=== PATIENT | female | born 1975 | race Caucasian/White ===

== ENCOUNTER → 2019-11-06 08:30 | Outpatient (CLI) | payer OTHER, SELFPAY ==
--- NOTE | ~2019-11-06 | CT_ITS ---
EXAMINATION: CT abdomen pelvis w con DATE: 11/06/2019 09:08 INDICATION: Lower abdominal pain TECHNIQUE: Computed tomography (CT) of the abdomen and pelvis was performed with 100 cc Omnipaque 350 intravenous contrast. Automated exposure control and iterative reconstruction technique were employe d. Exam dose: 1102.61 mGy-cm total exam DLP. COMPARISON: None. FINDINGS: There is a right lower lobe calcified pulmonary granuloma. There are calcified right hilar nodes. No infiltrate or consolidation is noted at the lung bases. Normal heart size. No pericardial o r pleural effusion. No hepatic, splenic, pancreatic, and adrenal or renal space-occupying mass lesion is detected. Normal caliber of the abdominal aorta with mild atherosclerotic calcification. No intraperitoneal or retrop eritoneal mass lesion or adenopathy or ascites is evident. Normal appendix. No bowel obstruction, bowel wall thickening, pneumatosis or intraperitoneal free air . There is a rounded 4.3 cm cystic mass involving the uterine cervical area. There are several left ova jomar cystic lesions, the largest approximately 2.4 cm. Pelvic ultrasound examination should be consid ered. The urinary bladder appears normal. Old burst fracture deformity of L1 is noted. There is severe degenerative disc disease at L3-4. IMPRESSION: 4.3 cm cystic mass involving the uterine cervical area; uterine cervical carcinoma must be considered Several left ovarian cystic lesions Consider pelvic ultrasound examination and gynecologic consultation Old burst fracture of L1 Severe degenerative disc disease at L3-4 Dr. Drake telephoned the report and pelvic ultrasound and gynecologic consult recommendations to the [facility] physician voicemail at [phone] on 11/06/19 at 0947 hours, with request for return phone call confirming receipt. Reviewed, dictated and finalized at [facility]. Reviewed, dictated and finalized at location B. IMPRESSION: 4.3 cm cystic mass involving the uterine cervical area; uterine ce rvical carcinoma must be considered Several left ovarian cystic lesions Consider pelvic ultrasound examination and gynecologic consultation Old burst fracture of L1 Severe degenerative disc disease at L3-4 Dr. Drake telephoned the report and pelvic ultrasound and gynecologic consult re commendations to the referring physician voicemail at [phone] on 11/06/19 a t 0947 hours, with request for return phone call confirming receipt.
== END ==
DX: R10.30 Lower abdominal pain, unspecified (principal); M51.36 Other intervertebral disc degeneration, lumbar region; R93.89 Abnormal findings on diagnostic imaging of other specified body structures
CPT/HCPCS: 74177; Q9967

== ENCOUNTER 2023-02-06 09:21 | Emergency (ER) | payer OTHER, SELFPAY ==
[2023-02-06 09:30] VITALS: BP 122/102; PULSE 58; RESP 20; TEMP 36.6; O2SAT 100
--- NOTE | 2023-02-06 09:33 | ED.SKABFB ---
HPI - Skin/Abscess/Foreign Bdy General Chief complaint: Skin/Abscess/Foreign Body Stated complaint: poison tennille Time Seen by Provider: 02/06/23 09:33 Source: patient, RN notes reviewed and old records reviewed Mode of arrival: ambulatory Limitations: no limitations History of Present Illness HPI narrative: 47 year old female presents to express care with complaints of itching and rash to lower extremities since being in the weeds on . Patient reports that she took a Medrol dose pack but it has not cleared up with medication and remains itchy. Patient states that she takes daily Zyrtec and has been using hydrocortisone cream to rash areas. Patient denies any difficulty with swallowing or any trouble breathing. MD complaint: rash Onset (ago): day(s) (10 days) Location: [facility] Treatments prior to arrival: OTC topical medication (hydrocortisone) and other (Medrol dose pack) Related Data Allergies Allergy/AdvReac Type Severity Reaction Status Date / Time No Known Allergies Allergy Verified 02/06/23 09:36 Review of Systems Review of Systems: CONSTITUTIONAL: Denies fever, chills, or sweats. CARDIOVASCULAR: Denies chest pain, palpitations, or edema. RESPIRATORY: Denies cough or dyspnea. SKIN: Reports rash to lower extremities especially right lower leg with red raised patches of rash which is itchy, area to left lower leg around ankle region. MUSCULOSKELETAL: Denies joint pain or myalgia. NEUROLOGIC: Denies headache, numbness, or weakness. All systems reviewed & are unremarkable except as noted in HPI and below PMFSH Past Medical History Medical History (Updated 02/06/23 @ 10:11 by Montserrat Velarde NP) Arthritis DDD (degenerative disc disease) Surgical History Surgical History (Updated 02/06/23 @ 10:11 by Montserrat Velarde NP) History of repair of anterior cruciate ligament of right knee Social History Social History (Updated 02/06/23 @ 10:10 by Montserrat Velarde NP) Smoking status: Never smoker Alcohol intake: current Alcohol use details: social Substance use type: does not use Living arrangements: with family Gender identity (if verbalized by the patient): Female Comments At time of signature, agree with nursing past medical, surgical, social and family history. There is no relevant family history pertinent to the presenting complaint Exam Narrative: GENERAL: Well-appearing, well-nourished, and in no acute distress. HEAD: Normocephalic, atraumatic. EYES: PERRLA, conjunctivae clear, and EOMI. ENT: Mucous membranes moist. Oropharynx without edema, erythema or lesions. NECK: Supple. No lymphadenopathy CHEST: Clear to auscultation. No respiratory distress.SAO2 100% on room air HEART: Regular rate and rhythm. SKIN: Warm, dry.? Patches of red raised rash to lower extremities especially right posterior lower leg with itching NEURO:? Alert and oriented x3. PSYCH: Normal mood and affect Course Course Emergency Course: Patient is aware of diagnosis, understands and agrees to treatment plan.? Anticipatory guidance given.? Patient agrees to follow-up as directed and is aware of reasons to seek care at the emergency department. Portions of this record may have been created with voice recognition software Level of Care: Express Care Visit Vital Signs Vital signs: Vital Signs Temperature 36.6 C 02/06/23 09:30 Pulse Rate 58 L 02/06/23 09:30 Respiratory Rate 20 02/06/23 09:30 Blood Pressure 122/102 H 02/06/23 09:30 Pulse Oximetry 100 02/06/23 09:30 Oxygen Delivery Room Air 02/06/23 09:30 Temperature 36.6 C 02/06/23 09:37 Pulse Rate 58 L 02/06/23 09:37 Respiratory Rate 20 02/06/23 09:37 Blood Pressure 130/92 H 02/06/23 09:46 Pulse Oximetry 100 02/06/23 09:37 Oxygen Delivery Room Air 02/06/23 09:37 Reviewed MDM - Skin/Abscess/Foreign Bdy MDM Narrative Medical decision making narrative: Does not appear at this t
[2023-02-06 09:37] VITALS: BP 122/102; PULSE 58; RESP 20; TEMP 36.6; O2SAT 100
[2023-02-06 09:46] VITALS: BP 130/92
== END 2023-02-06 09:56 | disposition home or self-care (01) ==
PROVIDERS: Emergency Provider Registered Nurse; PCP Family Medicine
DX: L23.7 Allergic contact dermatitis due to plants, except food (principal); M19.90 Unspecified osteoarthritis, unspecified site
CPT/HCPCS: 99213; G0463

== ENCOUNTER 2023-02-13 10:28 | Emergency (ER) | payer OTHER, SELFPAY ==
--- NOTE | ~2023-02-13 | XR_ITS ---
XR lumbar spine 2-3V DATE: 02/13/2023 10:59 INDICATION: Fall. Low back pain. History of fracture. TECHNIQUE: AP, lateral, coned lateral lumbosacral views COMPARISON: 04/21/2019 lumbar spine FINDINGS: Increased levoscoliosis of the lumbar spine since 04/21/2019, measuring 23 degrees compared t o 9 degrees on 04/21/2019. Chronic moderate apparent compression fracture deformity of L1, appearing relatively stable since 04/21. There is interval focal fracture of the anterosuperior aspect of the L2 vertebral body, new since 04/21. Additionally, there is onset of severe degenerative disc disease at L2-3, especially on the right, no t present on 04/21/2019. There is mild associated retrolisthesis at L2-3. Persistent severe degenerative disc disease at L3-4. No other fracture or bone destruction is detected. Included lower thoracic and lumbar pedicles are in tact. The sacroiliac joints are intact. IMPRESSION: Increased levoscoliosis from 9 degrees on 04/21/2019 to 23 degrees currently Chronic L1 compression fracture deformity New severe degenerative disc disease at L2-3 since 04/21/2019, with mild retrolisthesis Chronic severe degenerative disc disease at L3-4 New focal anterolateral L2 vertebral body fracture since 04/21/2019 Reviewed, dictated and finalized at location A. IMPRESSION: Increased levoscoliosis from 9 degrees on 04/21/2019 to 23 degrees cu rrently Chronic L1 compression fracture deformity New severe degenerative disc disease at L2-3 since 04/21/2019, with mild retrolis thesis Chronic severe degenerative disc disease at L3-4 New focal anterolateral L2 vertebral body fracture since 04/21/2019
[2023-02-13 10:42] VITALS: BP 126/84; PULSE 65; RESP 18; TEMP 36.7; O2SAT 98
--- NOTE | 2023-02-13 11:09 | ED.BACK ---
HPI - Back Pain/Injury General Chief Complaint: Back Pain/Injury Stated Complaint: Fall Injury/Back Pain Source: patient Mode of arrival: ambulatory Limitations: no limitations History of Present Illness HPI Narrative: 47-year-old female presented for complaint of mid/lower back pain after fall 02/08/23. States she tripped over a shoe and fell landing flat on her back. She has appt with habilitation training specialist in 5 days, who has been managing her chronic back pain (Dr King). Also scheduled with pcp in 3 days. Taking Celebrex daily, and taking Tramadol BID with improvement in pain. Denies pain radiating into the hips or legs, numbness, tingling, weakness of the lower extremities, or change in gait, saddle paresthesia or loss of bowel or bladder. Pain worse with sitting, rates 8/10 at worst. Patient has continued to go to work this week. States last spine injury was 2017 when she fell off of a horse, has not had spinal surgery; receives steroid injections occasionally. Related Data Home Medications Medication Instructions Recorded Confirmed celecoxib 200 mg capsule 200 mg PO DAILY 12/30/20 02/13/23 Allergies Allergy/AdvReac Type Severity Reaction Status Date / Time No Known Drug Allergies Allergy Unknown Unknown Verified 02/10/23 09:24 Review of Systems Review of Systems: CONSTITUTIONAL: Denies body aches, fever, chills EYES: Denies visual changes CARDIOVASCULAR: Denies chest pain, palpitations, or edema. RESPIRATORY: Denies cough or dyspnea. GASTROINTESTINAL: Denies abdominal pain, nausea, vomiting, or diarrhea. SKIN: Denies rash, itching, or wounds. MUSCULOSKELETAL: reports back pain NEUROLOGIC: Denies headache, numbness, tingling, or weakness. All systems reviewed & are unremarkable except as noted in HPI and below PMFSH Past Medical History Medical History ACL tear Allergies Arthritis Arthritis DDD (degenerative disc disease) Inflammatory arthritis Surgical History Surgical History H/O breast biopsy H/O breast surgery H/O colposcopy with cervical biopsy 10/24/2020, 11/09/2019- benign, 09/09/2016 ECC benign - BX tissue did not survive 12/29/2010 squamous atypia, 06/06/2009- benign History of repair of ACL History of repair of anterior cruciate ligament of right knee Family History Family History Other Family history of arthritis Hypertension Social History Social History Smoking status: Never smoker Alcohol intake: current Alcohol use details: social Substance use: never Substance use type: does not use Lack of Transportation: No Lack of Food: Never True Current Housing: I Have Housing Concerned About Future Housing: No Difficulty Paying Gas/Electric Bills: No Difficulty Paying for Meds: No Currently Unemployed: No Education: Master's Degree or Higher Difficulty w/ Childcare or Family Care: No Living arrangements: with family Occupation/Education: occupation 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 Please see nursing chart for further information. There is no relevant family history pertinent to the presenting complaint Exam Narrative: GENERAL: Well-appearing, and in no acute distress. HEAD: Normocephalic, atraumatic. EYES: conjunctivae clear NECK: Supple. full ROM CHEST: Speaks in full sentences. No respiratory distress. HEART: Regular rate and rhythm. Normal and equal peripheral pulses. MUSC: No Vertebral point tenderness. No paraspinal lumbar tenderness. BL
== END 2023-02-13 11:40 | disposition home or self-care (01) ==
PROVIDERS: Emergency Provider Nurse Practitioner Family; PCP Family Medicine
DX: S32.029A Unspecified fracture of second lumbar vertebra, initial encounter for closed fracture (principal); W18.09XA Striking against other object with subsequent fall, initial encounter; M13.80 Other specified arthritis, unspecified site
CPT/HCPCS: 72100; 99213; G0463

== ENCOUNTER 2024-11-02 09:20 | Outpatient (CLI) | payer OTHER, SELFPAY ==
--- OUTSIDE RECORDS SUMMARY | 2024-11-02 09:28 | XMS_ITS | Encounter Summary ---
Author Organization [facility] Address [address] [place] [address] Phone Care Team Providers Care [employer] Trader Name Role Phone Saleem Lebron MD Primary Care Provider [phone] Louise Palma APRN, DIRECTOR OF SUPPLY CHAIN Unavailable [phone] Encounter Details Date Type Department Care Team (Late st Contact Info) Description 11/02/2024 Results Follow-Up [facility] - Family Medicine [facility] [address] [place] [address] Saleem Lebron MD [address] [address] BASIC METABOLIC PANEL W/ CALCIUM TOTAL Social History Tobacco Use Types Packs/Day Years Used Date Smoking Tobacco: Never Smokeless Tobacco: Never Alcohol Use Standard Drinks/Week Comments No 0 (1 standard drink = 0.6 oz pur e alcohol) [facility] Utilities Answer Date Recorded In the past 12 months has [employer] electric, gas, oil, or water company threatened to shut off services in your home? Patient declined 06/05/2024 Social Connection and Isolation Panel Answer Date Recorded In a typical week, how many times do you talk on the phone with family, friends, or neighbors? Patient declined 06/05/2024 How often do you get togethe r with friends or relatives? Patient declined 06/05/2024 How often do you attend mormon or taoist serv ices? Patient declined 06/05/2024 Do you belong to any clubs o r organizations such as mormon groups, unions, fraternal or athletic groups, or school groups? Patient declined 06/05/2024 How often do you attend meet ings of the clubs or organizations you belong to? Patient declined 06/05/2024 Are you , , di vorced, , never , or living with a partner? Patient declined 06/05/2024 AUDIT-C Answer Date Recorded Q1: How often do you have a drink containing alc ohol? Patient declined 06/05/2024 Q2: How many drinks containi ng alcohol do you have on a typical day when you are drinking? Patient declined 06/05/2024 Q3: How often do you have si x or more drinks on one occasion? Patient declined 06/05/2024 PHQ-2 Answer Date Recorded Total Score - Questions 1-9 0 05/20 [facility] - Occupational Stress Questionnaire Answer Date Recorded Do you feel stress - tense, restless, nervous, or anxious, or unable to sleep at night because your mind is troubled all the time - these days? Patient declined 06/05/2024 Hunger Vital Sign Answer Date Recorded Within the past 12 months, y ou worried that your food would run out before you got the money to buy more. Patient declined Within the past 12 months, t he food you bought just didn't last and you didn't have money to get more. Patient declined PRAPARE - Transportation Answer Date Re corded In the past 12 months, has l ack of transportation kept you from medical appointments or from getting medications? No 05/20 In the past 12 months, has l ack of transportation kept you from meetings, work, or from getting things needed for daily living? No 06/05/2024 Housing Stability Vital Sign Answer Olu e Recorded In the last 12 months, was t here a time when you were not able to pay the mortgage or rent on time? No 07/18/2023 In the last 12 months, how many places have you lived? 1 07/18/2023 In the last 12 months, was t here a time when you did not have a steady place to sleep or slept in a fci (including now)? No 07/18/2023 Overall Financial Resource Strain (CARDIA) Answe r Date Recorded How hard is it for you to pa y for the very basics like food, housing, medical care, and heating? Not very hard 10/10/2024 Exercise Vital Sign Answer Date Recorde d On average, how many days pe r week do you engage in moderate to strenuous exercise (like a brisk walk)? 2 days 10/10/2024 On average, how many minutes do you engage in exercise at this level? 30 min 10/10/2024 Housing Stability Vital Sign Answer Olu e Recorded In the last 12 months, was t here a time when you were not able to pay the mortgage or rent on time? No 10/10/2024 In the past 12 months, how m any times have you moved where you were living? 0 10/10/2024 At any time in the past 12 m onths, were you homeless or living in a fci (including now)? No 10/10/2024 Education Answer Date Recorded What is the highest level of school you have completed or the highest degree you have received? 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 [address] [place] [address] Lavonne Ward Nancy, PAC [address] [place] [address] Discharge Disposition: Discharged to home or Selfcare 12/25/2024 3:00 PM CDT Office Visit [facility] - Cardiology - [place] [address] [place] [address] Ayde Cleaning APRN, DIRECTOR OF SUPPLY CHAIN [address] [place] [address] 02/06/2025 2:45 PM CDT Office Visit [facility] - Family Medicine - [place] [address] [place] [address] Saleem Lebron MD [address] [facility] [address] [place] [address] documented as of this encounter Visit Diagnoses Not on filedocumented in this encounter Additional Health Concerns Assessment Noted Time PHQ-9 Depression Total Score: 0 06/06/19 25 3:09 PM 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
--- OUTSIDE RECORDS SUMMARY | 2024-11-02 09:28 | XMS_ITS | Clinical Summary ---
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 Gender Identity Not on file Sexual Orientation Not on file Plan of Treatment Health Maintenance Due Date Last Done Comments HEPATITIS B VACCINES (1 of 3 - 19+ 3-dose series) 1993 HPV/Cotest (21-29) 09/15/1995 CERVICAL CANCER SCREENING 2004 HPV/Cotest (30-65) 2004 PAP SMEAR 2004 COLORECTAL SCREENING 09/15/2019 Colorectal Cancer Screening 09/15/2019 FIT-DNA Q 3 years 09/15/2019 FIT/FOBT Q 1 year 09/15/2019 Flex Sig/CT Colonography Q 5 years 09/15/2019 BREAST CANCER SCREENING 12/26/2023 12/26/19 23, 12/25/2022, 12/11/2021, Additional history exists ZOSTER VACCINE (1 of 2) 2024 INFLUENZA VACCINE (#1) 2024 DTAP/TDAP/TD VACCINES (2 - T d or Tdap) 05/21/2026 05/21/2016 [employer] [id number]
--- OUTSIDE RECORDS SUMMARY | 2024-11-02 09:28 | XMS_ITS | Clinical Summary ---
Author Organization [facility] Address [address] [place] [phone] Care Team Providers Care Clamshell Operator Name Role Phone Yosi Lebron MD Primary Care Provider Allergies No known active allergies Active Problems Problem Noted Date Diagnosed Date Possible , not yet confirmed 08/01/2014 Female infertility 07/11/2014 Encounters Date Type Department Care Team Description 10/08/2024 9:39 PM CDT - 10/09/2024 1:06 AM CDT Emergency [facility] Emergency Department [address] [place] [address] Bassam Gabriel MD Chest pain, unspecified type (Primary Dx); Dizziness; Hyponatremia; Hypokalemia Discharge Disposition: Discharge to home or self care from Last 3 Months Social History Tobacco Use Types Packs/Day Years Used Date Smoking Tobacco: Never Personal Safety Answer Date Recorded Have you ever been in or are you currently in a harmful physical or emotional relationship or is someone making you feel afraid or unsafe? Denies 10/08/2024 Comments Unknown Sex and Gender Information Value Date Recorded Sex Assigned at Not on file Legal Sex Female 7:33 PM CONTACT LENS MOLDER Gender Identity Not on file Sexual Orientation Not on file Obstetrics History Last Filed Vital Signs Vital Sign Reading Time Taken Comments Blood Pressure 130/91 10/08/2024 11:15 PM CDT Pulse 65 10/08/2024 11:15 PM CDT Temperature 36.7 C (98 F) 10/08/2024 9:42 PM CDT Respiratory Rate 13 10/08/2024 11:1 5 PM CDT Oxygen Saturation 96% 10/08/2024 11: 15 PM CDT Inhaled Oxygen Concentration - - Weight 83.9 kg (184 lb 15.5 oz) 10/08/2024 9:42 PM CDT Height 170.2 cm (5' 7.01) 10/08/2024 9:42 PM CD T Body Mass Index 28.96 10/08/2024 9:42 PM CDT Plan of Treatment Health Maintenance Due Date Last Done Comments Cervical Cancer Screening 1974 Colon Cancer Screening-Colonoscopy 1974 Depression Screening 1974 Hepatitis B Screening 1992 Regular Well Visit/Exam 18-64 1992 Zoster Vaccine (1 of 2) 2024 Influenza Vaccine (#1) 2024 Breast Cancer Screening-Mammogram 05/01/2025 05/01/2024, 05/01/2024, 12/25/2022, Additional history exists DTaP/Tdap/Td Vaccine (2 - Td or Tdap) 05/21/2026 05/21/2016 Hepatitis C Screening Completed 05/29/2014 Pneumococcal vaccine <65 Aged Out No longer eligible based on patient's age to complete this topic Procedures Procedure Name Priority Date/Time Associated Diagnosis Comments MAGNESIUM Add-On 10/08/2024 10:53 PM CDT XR CHEST 1 VIEW ED 10/08/2024 10:37 PM CDT EGFR STAT 10/08/2024 9:43 PM CDT DIFFERENTIAL AUTO STAT 10/08/2024 9:4 3 PM CDT TROPONIN T HIGH-SENSITIVITY SERIES (BASELINE, 2HR, 4HR, 6HR) STAT 10/08/2024 9:43 PM CDT COMPREHENSIVE METABOLIC PANEL STAT 10/08/2024 9:43 PM CDT CBC WITH AUTO DIFFERENTIAL STAT 10/08/2024 9:43 PM CDT ECG 12-LEAD STAT 10/08/2024 9:38 PM CDT SERUM HEPATITIS C AB Routine 05/29/2014 5:00 AM CONTACT LENS MOLDER from Last 3 Months or Most Recently Relevant to Health Maintenance Results * Magnesium (10/08/2024 10:53 PM CDT) Magnesium 1.9 1.4 - 2.5 mg/dL Blood 10/08/2024 10:5 3 PM CDT 10/09/2024 12:21 AM CDT us Bassam Gabriel MD LAB BLOOD ORDERABLE S Final Result [facility] 1 [facility] Department of Laboratories [place], [place] [id number] * XR Chest 1 View (10/08/2024 10:37 PM CDT) Anatomical Region Laterality Modality Body, Chest N/A Computed Radiogr aphy 10/08/2024 11:0 8 PM CDT Narrative 10/08/2024 11:08 PM CDT EXAM DESCRIPTION: XR CHEST 1 VIEW REASON FOR STUDY: chest pain, c/f pna Patient arrives to the ED with complaints of chest pain and headache. Patient states her headache began yesterday and her blood pressure has been all over the place. Patient states she has a history of HTN and is on 2 medications. Patient also complaining of nausea at this time. States it feels like an elephant is sitting on her chest. TECHNIQUE: Single radiographic view(s) of the chest. COMPARISON: None FINDINGS: LUNGS: No focal opacity, pleural effusion, or pneumothorax. HEART/MEDIASTINUM: Cardiac silhouette normal in size. Mediastinal and hilar contours appear normal. LINES/TUBES: None. BONES: No acute osseous abnormality. IMPRESSION: No acute cardiopulmonary abnormality. THIS IS AN ELECTRONICALLY VERIFIED FINAL REPORT 10/08/2024 11:08 PM - Electronically signed by Terry Granado M.D. KH: G[place]IA Report ID: [id number] Reading Location: [id number] Procedure Note Terry Granado MD - 10/08/2024 EXAM DESCRIPTION: XR CHEST 1 VIEW REASON FOR STUDY: chest pain, c/f pna Patient arrives to the ED with complaints of chest pain and headache.Patient states her headache began yesterday and her blood pressure has been allover the place. Patient states she has a history of HTN and is on 2medications. Patient also complaining of nausea at this time. States it feels like an elephant is sitting on her chest. TECHNIQUE: Single radiographic view(s) of the chest. COMPARISON: None FINDINGS: LUNGS: No focal opacity, pleural effusion, or pneumothorax. HEART/MEDIASTINUM: Cardiac silhouette normal in size. Mediastinal andhilar contours appear normal. LINES/TUBES: None. BONES: No acute osseous abnormality. IMPRESSION: No acute cardiopulmonary abnormality. THIS IS AN ELECTRONICALLY VERIFIED FINAL REPORT 10/08/2024 11:08 PM - Electronically signed by Terry Granado M.D. KH: GREGORIA Report ID: [id number] Reading Location: [place] [address] us Bassam Gabriel MD IMG XR PROCEDURES F inal Result * Troponin T high-sensitivity series (baseline, 2hr, 4hr, 6hr) (10/08/2024 9:43 PM CDT) Trop T hs 8 <=14 ng/L Comment: Interpretive Data For further hscTnT resources including the diagnostic algorithm and an aid in interpretation, copy and paste this link: https://nrl.testcatalog.org/show/hsTrop Current Interpretive Data last revised 2020. Blood 10/08/2024 9:43 PM CDT 10/08/2024 9:46 PM CDT us Bassam Gabriel MD LAB BLOOD ORDERABLE S Final Result [facility] 1 [facility] Department [place] [address] * eGFR (10/08/2024 9:43 PM CDT) [facility] eGFR >90 >=60 mL/min/1. 73 m2 Comment: Interpretive Data Reference Interval Normal >/= 90 mL/min/1.73m2 Mildly decreased* 60 - 89 mL/min/1.73m2 Mildly to moderately decreased 45 - 59 mL/min/1.73m2 Moderately to severely decreased 30 - 44 mL/min/1.73m2 Severely decreased 15 - 29 mL/min/1.73m2 Kidney Failure < 15 mL/min/1.73m2 *Relative to young adult level Estimated glomerular filtration rate is determined by the 2020 CKD-EPI equation recommended by the National Kidney Foundation (A Unifying Approach to GFR Estimation: Recommendations of the NKF-ASK Task Force on Reassessing the Inclusion of Race in Diagnosing Kidney Disease, JASN 2020). The CKD-EPI equation should not be used for patients with unstable renal function and has not been validated in children and those over 70. Current interpretive data was last reviewed 2021. Blood 10/08/2024 9:43 PM CDT 10/08/2024 9:46 PM CDT us Bassam Gabriel MD LAB BLOOD ORDERABLE S Final Result [facility] ([place]) 1 [facility] [place] [address] * (ABNORMAL) Differential, auto (10/08/2024 9:43 PM CDT) Pathologist [facility] Neutrophil abs 8.14(H) 1.50 - 6.50 K/cumm Imm gran abs 0.06 0.00 - 0.10 K/cumm [facility] Lymphocyte abs 2.92 0.80 - 3.30 K/cumm [facility]) Monocyte abs 1.07(H) 0.20 - 0.80 K/cumm [facility]) Eosinophil abs 0.19 0.00 - 0.50 K/cumm [facility]) Basophil abs 0.05 0.00 - 0.10 K/cumm [facility]) Neutrophil pct 65.5 % [facility] ([place]) Comment: Interpretive Data Percent cell count reference ranges are not reported, since discordance with absolute values may lead to misinterpretation of CBC data. Current Interpretive Data was last revised on 2017. Imm gran pct 0.5 % [facility]) Comment: Interpretive Data Percent cell count reference ranges are not reported, since discordance with absolute values may lead to misinterpretation of CBC data. Current Interpretive Data was last revised on 2017. Lymphocyte pct 23.5 % [facility] Comment: Interpretive Data Percent cell count reference ranges are not reported, since discordance with absolute values may lead to misinterpretation of CBC data. Current Interpretive Data was last revised on 2017. Monocyte pct 8.6 % [facility]) Comment: Interpretive Data Percent cell count reference ranges are not reported, since discordance with absolute values may lead to misinterpretation of CBC data. Current Interpretive Data was last revised on 2017. Eosinophil pct 1.5 % [facility] Comment: Interpretive Data Percent cell count reference ranges are not reported, since discordance with absolute values may lead to misinterpretation of CBC data. Current Interpretive Data was last revised on 2017. Basophil pct 0.4 % [facility] Comment: Interpretive Data Percent cell count reference ranges are not reported, since discordance with absolute values may lead to misinterpretation of CBC data. Current Interpretive Data was last revised on 2017. Blood 10/08/2024 9:43 PM CDT 10/08/2024 9:46 PM CDT us Bassam Gabriel MD LAB BLOOD ORDERABLE S Final Result [facility] 1 [facility] Department [place] [address] * (ABNORMAL) CBC with auto differential (10/08/2024 9:43 PM CDT) WBC 12.43(H) 3.80 - 9.90 K/cumm Hgb 12.9 11.9 - 15.5 g/dL [facility]) Hct 36.8 35.6 - 45.5 % [facility]) Plt 349 150 - 400 K/cumm [facility]) MPV 11.5 9.1 - 12.3 fL [facility] RBC 4.19 3.90 - 5.20 M/cumm [facility]) MCV 87.8 81.3 - 96.4 fL [facility]) MCH 30.8 27.1 - 33.3 pg [facility]) MCHC 35.1 32.3 - 35.7 g/dL [facility]) RDW CV 13.3 11.1 - 14.9 % [facility] RDW SD 43.2 35.7 - 48.1 fL [facility] NRBC abs 0.00 0.00 - 0.01 K/cumm [facility]) Blood 10/08/2024 9:43 PM CDT 10/08/2024 9:46 PM CDT us Bassam Gabriel MD LAB BLOOD ORDERABLE S Final Result [facility]) 1 [facility] Department [place] [address] * (ABNORMAL) Comprehensive metabolic panel (10/08/2024 9:43 PM CDT) Sodium 125(L) 135 - 145 mmol/L Potassium, pl 3.1(L) 3.3 - 4.9 mmol/L [facility] Chloride 83(L) 97 - 110 mmol/L [facility] CO2 26 22 - 32 mmol/L [facility]) Anion gap 17(H) 2 - 15 mmol/L [facility]) BUN 8 6 - 25 mg/dL [facility]) Creatinine 0.63 0.60 - 1.10 mg/dL [facility] Comment:Icteric sample, test results may be affected. Glucose 105 70 - 199 mg/dL [facility] Comment: Interpretive Data Fasting glucose >/= 126 mg/dl is diagnostic for diabetes. Fasting is defined as no caloric intake for at least 8 hours. Fasting glucose between 100 mg/dl to 125 mg/dl is diagnostic of prediabetes. In a patient with classic symptoms of hyperglycemia or hyperglycemic crisis, a random glucose >/= 200 mg/dl is diagnostic for diabetes. In the absence of unequivocal hyperglycemia, results should be confirmed by repeat testing. The classification and Diagnosis of Diabetes Diabetes Care 202; 46: S19-S40. Current interpretive data was last revised 2022. Calcium 9.6 8.5 - 10.3 mg/dL [facility] Bilirubin, total 1.3(H) 0.1 - 1.2 mg/dL [facility]) Protein, pl 7.6 6.5 - 8.5 g/dL [facility]) Albumin 4.6 3.5 - 5.0 g/dL [facility]) Alk phos 59 40 - 130 Units/L [facility]) ALT 14 7 - 45 Units/L [facility]) AST 19 10 - 45 Units/L [facility]) Blood 10/08/2024 9:43 PM CDT 10/08/2024 9:46 PM CDT us Bassam Gabriel MD LAB BLOOD ORDERABLE S Final Result [facility] 1 [facility] Department [place] [address] * ECG 12 lead (10/08/2024 9:38 PM CDT) 10/08/2024 9:38 PM CDT Narrative [facility] - 10/09/2024 7:29 AM CDT Vent Rate: 67 bpm RR Interval: 885 msec NV Interval: 171 msec QRS Duration: 102 msec QT Interval: 385 msec QTC Interval: 401 msec P-R-T [place]: 12 - 15 - 6 degrees IMPRESSION: Baseline artifact SINUS RHYTHM NORMAL ECG Electronically Signed By: Josse Jeff MD us Bassam Gabriel MD ECG ORDERABLES Fin al Result [facility] * Serum Hepatitis C ab (05/29/2014 5:00 AM CONTACT LENS MOLDER) HCV ab Negative NEG HISTORICAL RESULTS Serum 05/29/2014 5:00 AM CONTACT LENS MOLDER Narrative HISTORICAL RESULTS - 05/30/2014 4:23 AM CONTACT LENS MOLDER {Testing performed by: [place] [address]} Interpretive Data If confirmation is required, call Laboratory Customer Service to request sample to be sent to [facility] for Hepatitis C Virus (HCV) RNA Detection and Quantitation by Real-Time Reverse Product Operations Associate-PCR (RT-PCR). Current interpretive data was last revised on 2011 us Dacia Doyle MD LAB BLOOD ORDERABLES Final R esult HISTORICAL RESULTS from Last 3 Months or Most Recently Relevant to Health Maintenance Insurance [facility] H[facility]/PPO Address: [facility] [address] [place] [address] Care Teams Clamshell Operator Relationship Specialty Start Date End Date Yosi Lebron MD [address] [place] [address] PCP - General Pulmonary Disease 10/08/24
--- OUTSIDE RECORDS SUMMARY | 2024-11-02 09:28 | XMS_ITS | Referral Summary ---
Author Organization [facility] Address [address] [place] [address] Care Team Providers Care Double Bass Player Name Role Phone Yosi Lebron MD Primary Care Provider [phone] Encounters Date Type Department Care Team Description 10/08/2024 9:39 PM CDT - 10/09/2024 1:06 AM CDT Emergency [facility] Emergency Department [address] [place] [id number] Bassam Gabriel MD Chest pain, unspecified type (Primary Dx); Dizziness; Hyponatremia; Hypokalemia Discharge Disposition: Discharge to home or self care from Last 3 Months Allergies No known active allergies Active Problems Problem Noted Date Diagnosed Date Possible , not yet confirmed 08/01/2014 Female infertility 07/11/2014 Social History Tobacco Use Types Packs/Day Years [...] on file Legal Sex Female 7:33 PM PREDATORY GAME HUNTER Gender Identity Not on file Sexual Orientation Not on file Last Filed Vital Signs Vital Sign Reading [...] 10/08/2024 9:42 PM CDT Plan of Treatment Not on file Procedures Procedure Name Priority Date/Time Associated Diagnosis [...] HEPATITIS C AB Routine 05/29/2014 5:00 AM PREDATORY GAME HUNTER from Last 3 Months or Most Recently Relevant to Health Maintenance Results * Magnesium (10/08/2024 10:53 PM CDT) Magnesium 1.9 1.4 - 2.5 mg/dL Blood 10/08/2024 10:5 3 PM CDT 10/09/2024 12:21 AM CDT us Bassam Gabriel MD LAB BLOOD ORDERABLE S Final Result [facility] ([place]) 1 [facility] [place] [address] * XR Chest 1 View (10/08/2024 10:37 [...] Electronically signed by Terry Granado M.D. KH: [place] Report ID: [id number] Reading Location: [place] [address] Procedure Note Terry Granado MD - 10/08/2024 [...] Terry Granado M.D. KH: [place] Report ID: [id number] Reading Location: [place] [address] us Bassam Gabriel MD IMG XR PROCEDURES [...] MD LAB BLOOD ORDERABLE S Final Result [facility] [place]) 3 [facility] Department [place] [address] * eGFR (10/08/2024 9:43 PM CDT) eGFR >90 >=60 mL/min/1. 73 m2 Comment: [...] BLOOD ORDERABLE S Final Result [facility] ([place]) 1 [facility] Department [place] [address] * (ABNORMAL) Differential, auto (10/08/2024 9:43 PM CDT) Neutrophil abs 8.14(H) 1.50 - 6.50 K/cumm [...] S Final Result [facility] ([place]) 1 [facility] Department [place] [address] * (ABNORMAL) CBC with auto differential (10/08/2024 [...] ([place]) MCHC 35.1 32.3 - 35.7 g/dL [facility] ([place]) RDW CV 13.3 11.1 - 14.9 % [facility]) RDW SD 43.2 35.7 - 48.1 fL [facility] ([place]) NRBC abs 0.00 0.00 - 0.01 K/cumm [facility] ([place]) Blood 10/08/2024 9:43 PM CDT 10/08/2024 9:46 PM CDT us Bassam Gabriel MD LAB BLOOD ORDERABLE S Final Result [facility] ([place]) 1 [facility] Department [place] [address] * (ABNORMAL) Comprehensive metabolic panel (10/08/2024 9:43 PM CDT) Sodium 125(L) 135 - 145 mmol/L Potassium, pl 3.1(L) 3.3 - 4.9 mmol/L [facility] ([place]) Chloride 83(L) 97 - 110 mmol/L [facility] ([place]) CO2 26 22 - 32 mmol/L [facility]) Anion gap 17(H) 2 - 15 mmol/L [facility]) BUN 8 6 - 25 mg/dL [facility] ([place]) Creatinine 0.63 0.60 - 1.10 mg/dL [facility] ([place]) Comment:Icteric sample, test results may be affected. Glucose 105 70 - 199 mg/dL [facility] ([place]) Comment: Interpretive Data Fasting glucose >/= [...] classification and Diagnosis of Diabetes Diabetes Care 2021; 46: S19-S40. Current interpretive data was last [...] MD LAB BLOOD ORDERABLE S Final Result Performing Organization Address [facility] de Phone Number [facility] ([place] 1 [facility] [place] [address] * ECG 12 lead (10/08/2024 9:38 PM CDT) 10/08/2024 9:38 PM CDT Narrative [facility] - 10/09/2024 7:29 AM CDT Vent Rate: 67 bpm RR Interval: 885 msec [place] Interval: 171 msec QRS Duration: 102 msec QT Interval: 385 msec QTC Interval: 401 msec P-R-T [place]: 12 - 15 - 6 degrees IMPRESSION: Baseline artifact SINUS RHYTHM NORMAL ECG Electronically Signed By: Josse Jeff MD us Bassam Gabriel MD ECG ORDERABLES Fin al Result Performing Organization Address [facility] Co de Phone Number [employer] [facility] * Serum Hepatitis C ab (05/29/2014 5:00 AM PREDATORY GAME HUNTER) HCV ab Negative NEG HISTORICAL RESULTS Serum 05/29/2014 5:00 AM PREDATORY GAME HUNTER Narrative HISTORICAL RESULTS - 05/30/2014 4:23 AM PREDATORY GAME HUNTER {Testing performed by: [facility] [place] [address]} Interpretive Data If confirmation is required, call Laboratory Customer Service to request sample to be sent to [facility] for Hepatitis C Virus (HCV) RNA Detection and Quantitation by Real-Time Reverse Slate Picker-PCR (RT-PCR). Current interpretive data was last revised on 2011 us Dacia Doyle MD LAB BLOOD ORDERABLES Final R esult HISTORICAL RESULTS from Last 3 Months or Most Recently Relevant to Health Maintenance Insurance [facility] CHOICE PLUS Care Teams Double Bass Player Relationship Specialty Start Date End Date Yosi Lebron MD [address] [place] [address] PCP - General Pulmonary Disease 10/08/24
--- OUTSIDE RECORDS SUMMARY | 2024-11-02 09:28 | XMS_ITS | Encounter Summary ---
Author Organization [facility] Address [address] [place] [address] Phone Care Team Providers Care Rvda Master Certified Rv Technician Name Role Phone Shu Branch MD Primary Care Provider [phone] Saleem Lebron MD Primary Care Provider Louise Palma APRN, [facility] Unavailable [phone] Reason for Visit * Reason Comments Medication Refill Encounter Details Date Type Department Care Team (Late st Contact Info) Description 05/26/2023 Refill [facility] - [facility] - [place] [address] [place] [phone] Saleem Lebron MD [address] [address] Medication Refill Social History Tobacco Use Types Packs/Day Years Used Date Smoking Tobacco: Never Smokeless Tobacco: Never Alcohol Use Standard Drinks/Week Comments No 0 (1 standard drink = 0.6 oz pur e alcohol) PHQ-2 Answer Date Recorded Total Score - Questions 1-9 0 09/18 Education Answer Date Recorded What is the highest level of school you have completed or the highest degree you have received? 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, [employer]) 12/22/2022 Sexually Active Control Partners Comments Yes Comments No Sex and Gender Information Value Date Recorded Sex Assigned at Not on file Legal Sex Female 9:02 PM CDT Gender Identity Not on file Sexual Orientation Not on file documented as of this encounter Miscellaneous Notes * Telephone Encounter - Johana Garcia RN - 05/27/2023 9:01 AM CST Ordered 2 days ago AGE TRUCK DISPATCHER documented in this encounter Plan of Treatment Upcoming Encounters Date Type Department Care Team (Late st Contact Info) Description 11/07/2024 9:00 AM CDT [facility] [address] [place] [address] Lavonne Ward, PAC [address] [place] [address] Discharge Disposition: Discharged to home or Selfcare 12/25/2024 3:00 PM CDT Office Visit [facility] - Cardiology - [place] [address] [place] [phone] Ayde Cleaning APRN, CRIMPER OPERATOR [address] [place] [phone] 02/06/2025 2:45 PM CDT Office Visit [facility] - [facility] - [place] [address] [place] [phone] Saleem Lebron MD [address] [address] documented as of this encounter Visit Diagnoses Diagnosis Primary hypertension Unspecified essential hypertension Elevated ferritin- Primary Other abnormal blood chemistry Iron deficiency anemia, unspecified iron deficiency anemia type documented in this encounter Additional Health Concerns Infection Onset Date Last Indicated Resolved Time Respiratory Rule-Out 07/19/2023 07/19/2023 024 11:52 AM CDT Assessment Noted Time PHQ-9 Depression Total Score: 0 10/23/19 20 12:39 PM CDT documented as of this encounter Care Teams Rvda Master Certified Rv Technician Relationship Specialty Start Date End Date Shu Branch MD [address] [place] [address] PCP - General Family Medicine 05/20/16 06/08/23 Saleem Lebron MD [address] [facility] [address] [place] [address] PCP - General Family Medicine 06/09/23 Louise Palma APRN, CRIMPER OPERATOR [address] [facility] [address] [place] [address] Nurse Practitioner Cardiology 06/17/23 documented as of this encounter
--- OUTSIDE RECORDS SUMMARY | 2024-11-02 09:28 | XMS_ITS | Encounter Summary ---
Author Organization [facility] Address [address] [place] [address] Phone Care Team Providers Care Utilization Management Rn Name Role Phone Saleem Lebron MD Primary Care Provider [phone] [phone] Louise Palma COMPLIANCE OFFICER, CHARRER Unavailable +1- [phone] Encounter Details Date Type Department Care Team (Latest Contact Info) Description 10/31/2024 Results Follow-Up [facility] - Cancer Center Oncology Services [address] [place] [id number] Lavonne Ward Nancy, PAC [address] [place], [place] [id number] FERRITIN, IRON,TRANSFERN,CALC.T IBC,%SAT, CBC WITH AUTO DIFFERENTIAL Social History Tobacco Use Types Packs/Day Years Used Date Smoking Tobacco: Never Smokeless Tobacco: Never Alcohol Use Standard Drinks/Week Comments No 0 (1 standard drink = 0.6 oz pur e alcohol) [facility] Utilities Answer Date Recorded In the past 12 months has e electric, gas, oil, or water company threatened [...] declined 06/05/2024 How often do you attend roman catholic or yarsani serv ices? Patient declined 06/05/2024 Do you belong to any clubs o r organizations such as roman catholic groups, unions, fraternal or athletic groups, or [...] Total Score - Questions 1-9 0 05/20 [facility] - Occupational Stress Questionnaire Answer Date Recorded [...] place to sleep or slept in a intermediate (including now)? No 07/18/2023 Overall Financial Resource [...] were you homeless or living in a intermediate (including now)? No 10/10/2024 Education Answer Date Recorded What is the highest level of school you have completed or the highest degree you have received? 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 - Cardiology - [place] [address] [place] [address] Ayde Cleaning APRN, CHARRER [address] [place] [address] 02/06/2025 2:45 PM CDT Office Visit [facility] - Family Medicine - [place] [address] [place] [address] Saleem Lebron MD #[address] [facility] [address] [place] [address] documented as of this encounter Visit Diagnoses Not on filedocumented in this encounter Additional Health Concerns Assessment Noted Time PHQ-9 Depression Total Score: 0 06/06/19 25 3:09 PM SIGNAL AND COMMUNICATIONS MAINTAINER documented as of this encounter Care Teams Utilization Management Rn Relationship Specialty Start Date End Date Saleem Lebron MD [address] [facility] [address] [place] [address] PCP - General Family Medicine 06/09/23 Louise Palma APRN, CHARRER [address] [facility] [address] [place] [address] Nurse Practitioner Cardiology 06/17/23 documented as of this encounter
--- OUTSIDE RECORDS SUMMARY | 2024-11-02 09:28 | XMS_ITS | Encounter Summary ---
Author Organization [facility] Address [address] [place] [address] Phone Care Team Providers Care Drum Loader And Unloader Name Role Phone Saleem Lebron MD Primary Care Provider [phone] [phone] Louise Palma APRN, PROTECTIVE SERVICES CASE WORKER Unavailable [phone]- [phone] Encounter Details Date Type Department Care Team (Late st Contact Info) Description 10/22/2024 Results Follow-Up [facility] Medical Group - Family Medicine [facility] [address] [place] [address] Saleem Lebron MD #[address] [address] BASIC METABOLIC PANEL W/ CALCIUM TOTAL, BASIC METABOLIC PANEL W/ CALCIUM TOTAL, THYROID STIMULATING HORMONE (TSH), LIPID PANEL Social History Tobacco Use Types Packs/Day Years Used Date Smoking Tobacco: Never Smokeless Tobacco: Never Alcohol Use Standard Drinks/Week Comments No 0 (1 standard drink = 0.6 oz pur e alcohol) [facility] Utilities Answer Date Recorded In the past 12 months has [employer], gas, oil, or water company threatened to [...] declined 06/05/2024 How often do you attend protestant or jain serv ices? Patient declined 06/05/2024 Do you belong to any clubs o r organizations such as protestant groups, unions, fraternal or athletic groups, or [...] Total Score - Questions 1-9 0 05/20 [facility] - Occupational [...] place to sleep or slept in a group home (including now)? No 07/18/2023 Overall Financial Resource [...] any time in the past 12 m ont, were you homeless or living in a group home (including now)? No 10/10/2024 Education Answer Date Recorded What is the highest level of school you have completed or the highest degree you have received? 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, BILLING ASSOCIATE, SILVIA) 12/22/2022 Sexually Active Control Partners Comments [...] Description 11/07/2024 9:00 AM CDT Office Visit [facility] Oncology Services [address] [place] [address] Lavonne Ward Nancy, PAC [address] [place] [address] Discharge Disposition: Discharged to home or Selfcare 12/25/2024 3:00 PM CDT Office Visit [facility] - Cardiology - [place] [address] [facility] [phone] Ayde Cleaning, FERMENTING CELLAR DROPPER, PROTECTIVE SERVICES CASE WORKER [address] [facility] [place] [address] 02/06/2025 2:45 PM CDT Office Visit [facility] - Family Medicine - [place] [address] [facility] [place] [address] Saleem Lebron MD #[address] [address] documented as of this encounter Results * BASIC METABOLIC PANEL W/ CALCIUM TOTAL (10/24/2024 10:20 AM CDT) Pathologist [facility] SODIUM 138 136 - 145 mmol/L 10/24/2024 11:43 AM CDT [facility] POTASSIUM 3.7 3.5 - 5.1 mmol/L 10/24/2024 11:43 AM CDT [facility] CHLORIDE 102 98 - 107 mmol/L 10/24/2024 11:43 AM CDT [facility] CO2, VENOUS 29 22 - 30 mmol/L 10/24/2024 11:43 AM CDT [facility] ANION GAP 10.7 <18.0 mmol/L 10/24/2024 11:43 AM CDT [facility] GLUCOSE 96 70 - 99 mg/dL 10/24/2024 11:43 AM CDT [facility] BUN 10 10 - 20 mg/dL 10/24/2024 11:43 AM CDT [facility] CREATININE, BLOOD 0.69 0.60 - 1.00 mg/dL 10/24/2024 11:43 AM CDT [facility] BUN/CREATIN[facility] RATIO 14 12 - 20 ratio 10/24/2024 11:43 AM CDT [facility] CALCIUM 9.2 8.7 - 10.5 mg/dL 10/24/2024 11:43 AM CDT [facility] IS THE PATIENT REQUIRED TO BE FASTING? No 10/24/2024 11:43 AM CDT [facility] GFR, ESTIMATED >60 >=60 10/24/2024 11:43 AM CDT [facility] Comment: Creatinine Clearance is the preferred criteria for selecting drug dose adjustments in renally impaired patients. The GFR is provided as additional pertinent clinical information. GFR is reported in mL/min/1.73 sq m. Calculation based on the Chronic Kidney Disease Epidemiology Collaboration (CKD- EPI) equation refit without adjustment for race. GFR, EST. >60 >=60 025 11:43 AM CDT [facility] GFR, EST. NONAFRICAN >60 >=60 10/24/2024 11:43 AM CDT [facility] Blood Venipuncture / Unknown 10/24/2024 10:20 AM CDT 10/24/2024 10:56 AM CDT Saleem Lebron MD CHEMISTRY ORDERABLES Melissa l Result [facility] [address] [place] [address] documented in this encounter Visit Diagnoses Diagnosis Hypokalemia- Primary Hypopotassemia Elevated ferritin- Primary Other abnormal blood chemistry Iron deficiency anemia, unspecified iron deficiency anemia type documented in this encounter Additional Health Concerns Assessment Noted Time PHQ-9 Depression Total Score: 0 06/06/19 25 3:09 PM TOP LIFT TRIMMER documented as of this encounter Care Teams Drum Loader And Unloader Relationship Specialty Start Date End Date Saleem Lebron MD #[address] [address] PCP - General Family Medicine 06/09/23 Louise Palma, FERMENTING CELLAR DROPPER, PROTECTIVE SERVICES CASE WORKER [address] [facility], [address] [place] [address] Nurse Practitioner Cardiology 06/17/23 documented as of this encounter
--- OUTSIDE RECORDS SUMMARY | 2024-11-02 09:28 | XMS_ITS | Encounter Summary ---
Author Organization [facility] Address [address] [place] [address] Phone Care Team Providers Care Bench Molder Name Role Phone Saleem Lebron MD Primary Care Provider [phone] [phone] Louise Palma APRN, HYDRAULICS ENGINEER Unavailable [phone]- [phone] Encounter Details Date Type Department Care Team (Late st Contact Info) Description 10/16/2024 Results Follow-Up [facility] Medical Group - Family Medicine [facility] [address] [place] [address] Saleem Lebron MD #[address] [address] CBC WITH AUTO DIFFERENTIAL Social History Tobacco Use Types Packs/Day Years Used Date Smoking Tobacco: Never Smokeless Tobacco: Never Alcohol Use Standard Drinks/Week Comments No 0 (1 standard drink = 0.6 oz pur e alcohol) [facility] Utilities Answer Date Recorded In the past 12 months has [employer] electric, gas, oil, or water company threatened [...] declined 06/05/2024 How often do you attend methodist or protestant serv ices? Patient declined 06/05/2024 Do you belong to any clubs o r organizations such as methodist groups, unions, fraternal or athletic groups, or [...] Total Score - Questions 1-9 0 05/20 [facility] - Occupational Stress [...] place to sleep or slept in a assisted (including now)? No 07/18/2023 Overall Financial Resource [...] were you homeless or living in a assisted (including now)? No 10/10/2024 Education Answer Date Recorded What is the highest level of school you have completed or the highest degree you have received? 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, HEALTH CARE LAW SPECIALIST, SILVIA) 12/22/2022 Sexually Active Control Partners Comments [...] CDT [facility] [address] [place] [address] Lavonne Ward Nancy, PAC [address] [place] [address] Discharge Disposition: Discharged to home or Selfcare 12/25/2024 3:00 PM CDT Office Visit [facility] Medical [facility] - Cardiology - [place] [address] [place] [place] [address] Ayde Cleaning APRN, HYDRAULICS ENGINEER [address] [place] [address] 02/06/2025 2:45 PM CDT Office Visit [facility] Medical Group - Family Medicine - [place] [address] [place] [address] Saleem Lebron MD #[address] [facility] [address] [place] [address] documented as of this encounter Visit Diagnoses Not on filedocumented in this encounter Additional Health Concerns Assessment Noted Time PHQ-9 Depression Total Score: 0 06/06/19 25 3:09 PM ATTENDANCE SECRETARY documented as of this encounter Care Teams Bench Molder Relationship Specialty Start Date End Date Saleem Lebron MD #2 [facility] [address] [place] [address] PCP - General Family Medicine 06/09/23 Louise Palma APRN, HYDRAULICS ENGINEER [address] [facility] [address] [place] [address] Nurse Practitioner Cardiology 06/17/23 documented as of this encounter
--- OUTSIDE RECORDS SUMMARY | 2024-11-02 09:28 | XMS_ITS | Patient Health Record ---
Author Organization [facility] Address [address] [facility] [address] [place] [address] Care Team Providers Care Employment Trainer Name Role Phone Tarsha Knapp Unavailable [phone] Allergies No Known Allergies Reason For Referral No Information Medications Medication SIG (Take, Route, Frequency, Duration) Notes Start Date End Date Status Multivitamin Adult take 1 capsule by oral route daily Oral 1 Active Joint Support Complex 518-309-97-0.5 mg take 1 capsule by oral route daily Oral 1 *Reorder from [employer] for eRx and Interaction Alerts* Active ZyrTEC Allergy 10 MG take 1 tablet (10 mg) by oral route once daily Oral 1 Active Plan Of Treatment No Information Insurance Providers Payer Name Payer Address Payer Phone Subscriber Number Group Number Insured Name Patient Relationship to Insured Coverage Start Date Coverage End Date DO NOT USE [id number] Savanah Zapien Self - patient is the insured Medical (General) History Surgical History Surgery Date(Month/Year) ACL repair, Date of Procedure: 2017;
--- OUTSIDE RECORDS SUMMARY | 2024-11-02 09:28 | XMS_ITS | Clinical Summary ---
Author Organization [facility] Address [address] [place] [address] Phone Care Team Providers Care Book Binder Name Role Phone Saleem Lebron MD Primary Care Provider [phone] Louise Palma APRN, PRESS MACHINE OPERATOR Unavailable [phone] Allergies Active Allergy Reactions Criticality Noted Date Comments Other Runny Nose 05/21/2016 seasonal Medications cetirizine (ZyrTEC) 10 MG Tablet Take 10 mg by mouth daily. Active celecoxib (CeleBREX) 200 MG Capsule TAKE 1 CAPSULE BY MOUTH DAILY WITH FOOD 2 Active Blood Pressure Monitoring (Blood Pressure Cuff) MiscIndications: Primary hypertension Dispense battery-opera nabil arm cuff. Dx: I10 1 Each 4 Active hydroCHLOROthiaz radha (MICROZIDE) 12.5 MG CapsuleIndicatio ns:Primary hypertension Take 2 Capsules by mouth daily. 180 Capsule 3 4 Active amLODIPine (NORVASC) 2.5 MG Tablet Take 1 Tablet by mouth daily. 90 Tablet 3 4 Active metoprolol Succinate (TOPROL-XL) 50 MG TABLET SR 24 HR TAKE 1 TABLET DAILY 90 Tablet 3 4 Active risedronate (ACTONEL) 35 MG Tablet Take 35 mg by mouth every 7 days. Active ALPRAZolam (XANAX) 0.25 MG TabletIndication s:Anxiety Take 1 Tablet by mouth daily as needed for Anxiety for up to 30 days. 30 Tablet 5 11/12/19 25 Active potassium chloride CR (KLORCON) 10 MEQ Tablet Controlled Release Take 2 Tablets by mouth daily. 180 Tablet 3 5 Active traMADol (ULTRAM) 50 MG TabletIndication s:Left-sided chest wall pain Take 1 Tablet by mouth daily as needed for Moderate or more severe pain. 30 Tablet 4 10/13/19 25 Discontin ued(Thera py completed ) rosuvastatin (CRESTOR) 10 MG Tablet TAKE 1 TABLET DAILY 90 Tablet 3 4 10/13/19 25 Discontin ued(Thera py completed ) calcium 600 MG Tablet Take 600 mg by mouth daily. 10/13/19 25 Discontin ued(Med List Clean Up) VITAMIN D-3 400 UNIT Tablet Take 10 mcg by mouth daily. 10/13/19 25 Discontin ued(Med List Clean Up) biotin 300 MCG Tablet Take 300 mcg by mouth daily. 10/13/19 25 Discontin ued(Med List Clean Up) magnesium oxide (MAG-OX) 400 MG Tablet Take 400 mg by mouth daily. 10/13/19 25 Discontin ued(Med List Clean Up) meclizine (ANTIVERT) 25 MG TabletIndication s:Nausea,Vertigo Take 1 Tablet by mouth 3 times daily as needed for Dizziness. 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 Encounters Date Type Department Care Team Description 11/02/2024 Results Follow-Up [facility] [place] [address] [place] [address] Saleem Lebron MD BASIC METABOLIC PANEL W/ CALCIUM TOTAL 10/31/2024 Results Follow-Up [facility] [address] [place] [address] Lavonne Ward Nancy, PAC FERRITIN, IRON,TRANSFERN,CALC.TI BC,%SAT, CBC WITH AUTO DIFFERENTIAL 10/31/2024 Travel 10/31/2024 [facility]phone [facility] [address] [place] [address] Lavonne Ward, PAC 10/24/2024 Travel 10/22/2024 Results Follow-Up [facility] [place] [address] [place] [address] Saleem Lebron MD BASIC METABOLIC PANEL W/ CALCIUM TOTAL, BASIC METABOLIC PANEL W/ CALCIUM TOTAL, THYROID STIMULATING HORMONE (TSH), LIPID PANEL 10/16/2024 Results Follow-Up [facility] [place] [address] [place] [address] Saleem Lebron MD CBC WITH AUTO DIFFERENTIAL 10/13/2024 Travel 10/12/2024 3:55 PM CDT Lab [facility] [address] [place] [address] Saleem Lebron MD Hypokalemia; Anxiety; Hyperlipidemia, unspecified hyperlipidemia type Discharge Disposition: Discharged to home or Selfcare 10/12/2024 3:15 PM CDT Office Visit [facility] [place] [address] [place] [address] Saleem Lebron MD Anxiety (Primary Dx); Primary hypertension; Hypokalemia; Hyperlipidemia, unspecified hyperlipidemia type; Leukocytosis, unspecified type Discharge Disposition: Discharged to home or Selfcare 10/10/2024 1:00 PM CDT Clinical Support [facility] [place] [address] [place] [address] [facility] Blood pressure check (Primary Dx) Discharge Disposition: Discharged to home or Selfcare 10/09/2024 Telephone [facility] [place] [address] [place] [address] Saleem Lebron MD Appointment 10/09/2024 Travel 08/31/2024 2:50 PM CDT Lab [facility] [address] [place] [address] Lavonne Ward, PAC Elevated ferritin Discharge Disposition: Discharged to home or Selfcare 08/31/2024 6:59 AM CDT - 08/31/2024 11:59 PM CDT Hospital Encounter [facility] [address] [place] [address] Lavonne Ward, PAC Discharge Disposition: Discharged to home or Selfcare 08/31/2024 Travel 08/30/2024 Travel 08/15/2024 3:20 PM CDT Office Visit [facility] [address] [place] [address] Lavonne Ward, PAC Elevated ferritin (Primary Dx) Discharge Disposition: Discharged to home or Selfcare 08/15/2024 Travel 08/14/2024 Results Follow-Up [facility] [address] [place] [address] Ed Lavonne Nancy, PAC FERRITIN, IRON,TRANSFERN,CALC.TI BC,%SAT, CBC WITH AUTO DIFFERENTIAL, Additional followed-up results: 4 08/13/2024 Results Follow-Up [facility] [address] [place] [phone] Saleem Lebron MD THYROID STIMULATING HORMONE (TSH) 08/09/2024 Travel from Last 3 Months Immunizations Immunization Administration Dates Next Due PUR TDAP 7+ YRS IM 05/21/2016 Family History Medical History Relation Name Comments Atrial fibrillation Father Heart Attack Maternal Grandmother Rosario Heart Attack Maternal Uncle Sadi No Known Problems Mother Multiple Sclerosis Sister Relation Name Status Comments Father Alive Maternal Grandmother Rosario Alive Maternal Uncle Sadi Alive Mother Alive Sister Alive Social History Tobacco Use Types Packs/Day Years Used Date Smoking Tobacco: Never Smokeless Tobacco: Never Tobacco Cessation:Counseling Given: Yes Alcohol Use Standard Drinks/Week Comments No 0 (1 standard drink = 0.6 oz pur e alcohol) [facility] Utilities Answer Date Recorded In the past 12 months has [employer], gas, oil, or water [employer] threatened to shut off services in your home? Patient declined 06/05/2024 Social Connection and Isolation Panel Answer Date Recorded In a typical week, how many times do you talk on the phone with family, friends, or neighbors? Patient declined 06/05/2024 How often do you get togethe r with friends or relatives? Patient declined 06/05/2024 How often do you attend mormonism or buddhist serv ices? Patient declined 06/05/2024 Do you belong to any clubs o r organizations such as mormonism groups, unions, fraternal or athletic groups, or [...] Total Score - Questions 1-9 0 05/20 [facility] - Occupational Stress [...] any time in the past 12 m [facility], were you homeless or living in a intermediate (including now)? No 10/10/2024 Education Answer Date Recorded What is the highest level of school you have completed or the highest degree you have received? 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[employer]) 12/22/2022 Sexually Active Control Partners Comments Yes Post-menopausal Male Comments No Sex and Gender Information Value Date Recorded Sex Assigned at Not on file Legal Sex Female 9:02 PM CDT Gender Identity Not on file Sexual Orientation Not on file Last Filed Vital Signs Vital Sign Reading Time Taken Comments Blood Pressure 120/78 10/12/2024 3:05 PM CDT Pulse 66 10/12/2024 3:05 PM CDT Temperature 36.6 C (97.9 F) 10/12/2024 3:05 PM CDT Respiratory Rate 20 08/15/2024 2:56 PM CDT Oxygen Saturation 97% 10/12/2024 3:05 PM CDT Inhaled Oxygen Concentration - - Weight 88.5 kg (195 lb) 10/12/2024 3:05 PM CDT Height 170.2 cm (5' 7) 10/12/2024 3:05 PM CDT Body Mass Index 30.54 10/12/2024 3:05 PM CDT Plan of Treatment Upcoming Encounters Date Type Department Care Team (Late st Contact Info) Description 11/07/2024 9:00 AM CDT Office Visit [facility] [address] [place] [address] Lavonne Ward, QING [address] [place] [address] Discharge Disposition: Discharged to home or Selfcare 12/25/2024 3:00 PM CDT Office Visit [facility] - Cardiology - [place] [address] [place] [phone] Ayde Cleaning, HEALTH AID, PRESS MACHINE OPERATOR [address] [facility] [place] [phone] 02/06/2025 2:45 PM CDT Office Visit [facility] [address] [place] [address] Saleem Lebron MD [address] [address] Health Maintenance Due Date Last Done Comments Hepatitis B Immunization (1 of 3 - 19+ 3-dose series) 1993 HPV/Cotest 2004 Cologuard 09/15/2019 Immunochemical Fecal Occult Blood 09/15/2019 Cervical Cancer Screening (CCS) 10/31/2023 Pap Smear 10/31/2023 10/30/2020, 05/21/2016 SARS-COV-2 Immunization ( - season) 2023 Pneumococcal Immunization (50+ years) (1 of 1 - PCV) 2024 Zoster Immunization (1 of 2) 2024 Influenza Immunization (#1) 2024 Mammogram 05/01/2025 05/01/2024, 0911/2022, 12/25/2022, Additional history exists Td Immunization Every 10 Years (Adults With 1 Tdap) 05/21/2026 05/21/2016 Colonoscopy 05/04/2032 05/04/2022 Colorectal Cancer Screening 05/04/2032 Respiratory Syncytial Virus (RSV) Immunization (Adult) (1 - 1-dose 75+ series) 2049 Discussion re Starting/Frequency of Mammograms Discontinued 05/01/2024, 12/25/2022, 12/11/2021, Additional history exists Hepatitis C Virus (HCV) Screening Completed 07/13/2024 Human Papillomavirus (HPV) Immunization Aged Out No longer eligible based on patient's age to complete this topic Meningococcal Immunization (ACWY) Aged Out No longer eligible based on patient's age to complete this topic Rotavirus Immunization Aged Out No lo nger eligible based on patient's age to complete this topic Procedures Procedure Name Priority Date/Time Associated Diagnosis Comments CBC WITH AUTO DIFFERENTIAL Routine 10/31/2024 11:12 AM CDT Elevated ferritin Iron deficiency anemia, unspecified iron deficiency anemia type COMPLETE BLOOD COUNT (CBC) WITH DIFF Routine 10/31/2024 11:12 AM CDT Elevated ferritin Iron deficiency anemia, unspecified iron deficiency anemia type IRON,TRANSFERN,CALC. TIBC,%SAT Routine 10/31/2024 11:12 AM CDT Elevated ferritin Iron deficiency anemia, unspecified iron deficiency anemia type FERRITIN Routine 10/31/2024 11:12 AM CDT Elevated ferritin Iron deficiency anemia, unspecified iron deficiency anemia type BASIC METABOLIC PANEL W/ CALCIUM TOTAL Routine 10/24/2024 10:20 AM CDT Hypokalemia BASIC METABOLIC PANEL W/ CALCIUM TOTAL Routine 10/16/2024 9:38 AM CDT Hypokalemia CBC WITH AUTO DIFFERENTIAL Today 10/13/2024 10:57 AM CDT Leukocytosis, unspecified type COMPLETE BLOOD COUNT (CBC) WITH DIFF Today 10/13/2024 10:57 AM CDT Leukocytosis, unspecified type LIPID PANEL Routine 10/12/2024 3:54 PM CDT Hyperlipidemia, unspecified hyperlipidemia type THYROID STIMULATING HORMONE (TSH) Routine 10/12/2024 3:54 PM CDT Anxiety BASIC METABOLIC PANEL W/ CALCIUM TOTAL Today 10/12/2024 3:54 PM CDT Hypokalemia CBC WITH AUTO DIFFERENTIAL Routine 08/31/2024 2:59 PM CDT Elevated ferritin FERRITIN Routine 08/31/2024 2:59 PM CDT Elevated ferritin COMPLETE BLOOD COUNT (CBC) WITH DIFF Routine 08/31/2024 2:59 PM CDT Elevated ferritin HEREDITARY HEMOCHROMATOSIS, HFE VARIANT ANALYSIS- NERI T Routine 08/31/2024 2:59 PM CDT Elevated ferritin US ABDOMEN COMPLETE Routine 08/31/2024 7 :40 AM CDT Elevated ferritin CBC WITH AUTO DIFFERENTIAL Routine 08/09/2024 11:42 AM CDT Iron deficiency anemia, unspecified iron deficiency anemia type COMPLETE BLOOD COUNT (CBC) WITH DIFF Routine 08/09/2024 11:42 AM CDT Iron deficiency anemia, unspecified iron deficiency anemia type IRON,TRANSFERN,CALC. TIBC,%SAT Routine 08/09/2024 11:42 AM CDT Iron deficiency anemia, unspecified iron deficiency anemia type FERRITIN Routine 08/09/2024 11:42 AM CDT Elevated ferritin Iron deficiency anemia, unspecified iron deficiency anemia type THYROID STIMULATING HORMONE (TSH) Routine 08/09/2024 11:42 AM CDT Hypothyroidism, unspecified type HEPATITIS PANEL ACUTE (AHP) Routine 07/13/2024 11:36 AM CDT Contact with and (suspected) exposure to infections with a predominantly sexual mode of transmission HENRY SCREENING BILATERAL DIGITAL W CAD W JAMIE Routine 05/01/2024 3:34 PM LOGISTICS VICE PRESIDENT Encounter for screening mammogram for breast cancer PATHOLOGY CYTOLOGY EXPORT FREIGHT CLERK Routine 05/21/2016 from Last 3 Months or Most Recently Relevant to Health Maintenance Results * IRON,TRANSFERN,CALC.TIBC,%SAT (10/31/2024 11:12 AM CDT) Only the most recent of2 resultswithin the time period is included. IRON 85 25 - 156 mcg/dL 10/31/2024 12:37 PM CDT [facility] TRANSFERRIN 235 180 - 382 mg/dL 10/31/2024 12:37 PM CDT [facility] TIBC, CALCULATED 294 265 - 497 mcg/dL 10/31/2024 12:37 PM CDT [facility] % SATURATION * 29 15 - 62 % 10/31/2024 12:37 PM CDT [facility] Blood Venipuncture / Unknown 10/31/2024 11:12 AM CDT 10/31/2024 12:07 PM CDT us Lavonne Ward PAC CHEMISTRY ORDERABLES Melissa franco Result [facility] [address] [place] [address] * (ABNORMAL) CBC WITH AUTO DIFFERENTIAL (10/31/2024 11:12 AM CDT) Only the most recent of4 resultswithin the time period is included. WBC 8.71 4.00 - 12.00 10(3)/mcL 10/31/2024 2:13 PM CDT [facility] RBC 4.31 3.80 - 5.30 10(6)/mcL 10/31/2024 2:13 PM CDT [facility] HEMOGLOBIN (HGB) 13.5 12.0 - 15.8 g/dL 10/31/2024 2:13 PM CDT [facility] HEMATOCRIT (HCT) 39.7 36.0 - 47.0 % 10/31/2024 2:13 PM CDT [facility] MCV 92.1 82.0 - 96.0 fL 10/31/2024 2:13 PM CDT [facility] MCH 31.3 26.0 - 34.0 pg 10/31/2024 2:13 PM CDT [facility] MCHC 34.0 31.0 - 36.0 g/dL 10/31/2024 2:13 PM CDT [facility] PLATELET COUNT 351 140 - 440 10(3)/[facility] 10/31/2024 2:13 PM CDT [facility] RDW 14.1 11.8 - 15.5 % 10/31/2024 2:13 PM CDT [facility] MPV 13.2(H) 9.7 - 12.4 fL 10/31/2024 2:13 PM CDT [facility] NEUTROPHILS 69.2 47.0 - 73.0 % 10/31/2024 2:13 PM CDT [facility] LYMPHOCYTES 19.2 18.0 - 42.0 % 10/31/2024 2:13 PM CDT [facility] MONOCYTES 8.7 4.0 - 12.0 % 10/31/2024 2:13 PM CDT [facility] EOSINOPHILS 1.7 0.0 - 5.0 % 10/31/2024 2:13 PM CDT [facility] BASOPHILS 0.7 0.0 - 1.0 % 10/31/2024 2:13 PM CDT [facility] IMMATURE GRANULOCYTE 0.5(H) 0.0 - 0.4 % 10/31/2024 2:13 PM CDT [facility] Comment:Immature Granulocyte s includes Metamyelocytes, Myelocytes, and Promyelocytes. ABSOLUTE NEUTROPHILS 6.03 1.60 - 7.70 10(3)/[facility] 10/31/2024 2:13 PM CDT [facility] ABSOLUTE LYMPHOCYTES 1.67 1.30 - 3.20 10(3)/[facility] 10/31/2024 2:13 PM CDT [facility] ABSOLUTE MONOCYTES 0.76 0.20 - 1.00 10(3)/[facility] 10/31/2024 2:13 PM CDT [facility] ABSOLUTE EOSINOPHIL 0.15 0.00 - 0.40 10(3)/[facility] 10/31/2024 2:13 PM CDT [facility] ABSOLUTE BASOPHILS 0.06 0.00 - 0.10 10(3)/[facility] 10/31/2024 2:13 PM CDT [facility] ABSOLUTE IMMATURE GRANULOCYTE 0.04(H) 0.00 - 0.03 10 (3) mcL. 10/31/2024 2:13 PM CDT [facility] NRBC PER 100 WBC 0 11/01/19 2:13 PM CDT [facility] RESULTS ARE CONSISTENT WITH PERIPHERAL SMEAR REVIEW Yes 10/31/2024 2:13 PM CDT [facility] RBC MORPHOLOGY CONSISTENT WITH INDICES Yes 10/31/2024 2:13 PM CDT [facility] Blood Venipuncture / Unknown 10/31/2024 11:12 AM CDT 10/31/2024 12:06 PM CDT [facility] HEMATOLOGY ORDERABLES Fin al Result Performing Organization Address City/[facility] Co de Phone Number [facility] [address] [place] [address] * (ABNORMAL) FERRITIN (10/31/2024 11:12 AM CDT) Only the most recent of3 resultswithin the time period is included. FERRITIN 667(H) 5 - 204 ng/mL 10/31/2024 12:51 PM CDT [facility] Blood Venipuncture / Unknown 10/31/2024 11:12 AM CDT 10/31/2024 12:07 PM CDT [facility] PAC CHEMISTRY ORDERABLES Melissa l Result Performing Organization Address City/[facility]/ZIP Co de Phone Number [facility] [address] [place] [address] * BASIC METABOLIC PANEL W/ CALCIUM TOTAL (10/24/2024 10:20 AM CDT) Only the most recent of3 resultswithin the time period is included. SODIUM 138 136 - 145 mmol/L 10/24/2024 11:43 AM CDT [facility] POTASSIUM 3.7 3.5 - 5.1 mmol/L 10/24/2024 11:43 AM T [facility] CHLORIDE 102 98 - 107 mmol/L 10/24/2024 11:43 AM T [facility] CO2, VENOUS 29 22 - 30 mmol/L 10/24/2024 11:43 AM T [facility] ANION GAP 10.7 <18.0 mmol/L 10/24/2024 11:43 AM CDT [facility] GLUCOSE 96 70 - 99 mg/dL 10/24/2024 11:43 AM T [facility] BUN 10 10 - 20 mg/dL 10/24/2024 11:43 AM T [facility] CREATININE, BLOOD 0.69 0.60 - 1.00 mg/dL 10/24/2024 11:43 AM [facility] BUN/CREATININE RATIO 14 12 - 20 ratio 10/24/2024 11:43 AM [facility] CALCIUM 9.2 8.7 - 10.5 mg/dL 10/24/2024 11:43 AM [facility] IS THE PATIENT REQUIRED TO BE FASTING? No 10/24/2024 11:43 AM [facility] GFR, ESTIMATED >60 >=60 10/24/2024 11:43 AM [facility] Comment: Creatinine Clearance is the preferred criteria for selecting drug dose adjustments in renally impaired patients. The GFR is provided as additional pertinent clinical information. GFR is reported in mL/min/1.73 sq m. Calculation based on the Chronic Kidney Disease Epidemiology Collaboration (CKD- EPI) equation refit without adjustment for race. GFR, EST. >60 >=60 025 11:43 AM [facility] GFR, EST. NONAFRICAN >60 >=60 10/24/2024 11:43 AM [facility] Blood Venipuncture / Unknown 10/24/2024 10:20 AM CDT 10/24/2024 10:56 AM CDT Saleem Lebron MD CHEMISTRY ORDERABLES Melissa l Result Performing Organization Address City/[facility] Co de Phone Number [facility] [address] [place] [address] * THYROID STIMULATING HORMONE (TSH) (10/12/2024 3:54 PM CDT) Only the most recent of2 resultswithin the time period is included. [facility] TSH 2.305 0.300 - 5.000 mIU/L 10/12/2024 5:30 PM CDT [facility] Blood Venipuncture / Unknown 10/12/2024 3:54 PM CDT 10/12/2024 4:48 PM CDT Saleem Lebron MD CHEMISTRY ORDERABLES Melissa l Result Performing Organization Address City/[facility] Co de Phone Number [facility] [address] [place] [address] * LIPID PANEL (10/12/2024 3:54 PM CDT) [facility] CHOLESTEROL 134 <200 mg/dL 10/12/2024 6:11 PM CDT [facility] TRIGLYCERIDES 66 <150 mg/dL 10/12/2024 6:11 PM CDT [facility] HDL CHOLESTEROL 49 >40 mg/dL 6:11 PM CDT [facility] LDL 72 <130 mg/dL 10/12/2024 6:11 PM CDT [facility] VLDL 13 10 - 50 mg/dL 10/12/2024 6:11 PM CDT [facility] CHOL/HDL RATIO 2.7 0.0 - 4.4 10/12/2024 6:11 PM CDT [facility] NON-HDL CHOLESTEROL 85 <130 mg/dL 10/12/2024 6:11 PM CDT [facility] IS THE PATIENT REQUIRED TO BE FASTING? Yes 10/12/2024 6:11 PM CDT [facility] HAS THE PATIENT BEEN FASTING? Yes 10/12/2024 6:11 PM CDT [facility] Blood Venipuncture / Unknown 10/12/2024 3:54 PM CDT 10/12/2024 4:48 PM CDT Saleem Lebron MD CHEMISTRY ORDERABLES Melissa l Result [facility] [address] [place] [address] * HEREDITARY HEMOCHROMATOSIS, HFE VARIANT ANALYSIS- [facility] (08/31/2024 2:59 PM CDT) [facility] 09/06/2024 5:03 PM CDT [place] [employer] [facility] HFET RESULT, [facility] SEE NOTE 09/06/2024 5:03 PM CDT [facility] [employer] [facility] Comment: [id number]: Not detected. H63D: Not detected. HFET INTERPRETATION, [facility] SEE NOTE 09/06/2024 5:03 PM CDT [facility] [employer] Comment: This result reduces the risk but does not rule out either a diagnosis of or predisposition for hereditary hemochromatosis (HH). This assay does not rule out the presence of other disease-causing variants in the HFE gene or in other genes associated with hemochromatosis. Non-HFE-HH causes should also be considered. These results should be interpreted in the context of clinical findings, family history, and other laboratory testing (e.g. serum transferrin-iron saturation and serum ferritin). Genetic testing and other laboratory testing of an affected family member can determine if this result is of predictive value for this individual. A genetic consultation may be of benefit. ADDITIONAL INFORMATION An online research opportunity called Blucarat (compropago), a project of [employer], is available for the recipient of this genetic test. This patient registry collects de-identified genetic and health information to advance the knowledge of genetic variants. [facility] is a collaborator of [employer]. This may not be applicable for all tests. Test results should be interpreted in the context of clinical findings, family history, and other laboratory data. Misinterpretation of results may occur if the information provided is inaccurate or incomplete. Rare polymorphisms exist that could lead to false-negative or false-positive results. If results obtained do not match the clinical findings, additional testing should be considered. Bone Marrow transplants from allogenic donors will interfere with testing. Call [facility] for instructions for testing patients who have received a bone marrow transplant. One or more in silico tools were used to assist in the interpretation of these results. These tools are updated regularly and predictions for a given variant may change. Additionally, the predictability of these tools for the determination of pathogenicity is currently unvalidated. This test was developed and its performance characteristics determined by [facility] in a manner consistent with CLIA requirements. This test has not been cleared or approved by the U.S. Food and Drug Administration. HFET SPECIMEN, [facility] WB Whole Blood 09/06/2024 5:03 PM CDT [facility] HFET METHOD, [facility] SEE NOTE 09/06/2024 5:03 PM CDT [facility] Comment: Droplet Digital Polymerase Chain Reaction (ddPCR) was used to test for the following three variants in the HFE gene; C282Y, H63D, and S65C. Because of the minimal effect on iron metabolism associated with the S65C variant, it is only reported when it is found with the C282Y variant (i.e. if the patient has the C282Y/S65C genotype). HFET RELEASED BY, [facility] Keri Arceo M.D. 09/06/2024 5:03 PM CDT [facility] Comment: Test Performed by: [facility] - [address] [address] Telecommunicator: Edgar Fernandes Ph.D.; CLIA# [id number] Blood Venipuncture / Unknown 08/31/2024 2:59 PM CDT 08/31/2024 2:59 PM CDT us Lavonne Ward PAC LAB SEND OUT GENETIC Melissa l Result [facility] US * US ABDOMEN COMPLETE (08/31/2024 7:40 AM CDT) Anatomical Region Laterality Modality Abdomen N/A Ultrasound 09/02/2024 6:14 PM CDT Impressions 09/02/2024 6:17 PM CDT IMPRESSION: No acute abnormality. 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 Narrative 09/02/2024 6:17 PM CDT EXAM DESCRIPTION: US ABDOMEN COMPLETE REASON FOR STUDY: hemochromatosis and elevated ferritin TECHNIQUE: Grayscale images acquired of the abdomen and recorded on PACS. Additional selected color Doppler and spectral images recorded. COMPARISON: None FINDINGS: PANCREAS: Visualized portions of the pancreas are within normal limits. Portions of the pancreatic body and tail are obscured due to bowel gas. LIVER: No masses. Echotexture and echogenicity normal. Main portal vein is patent with antegrade flow. GALLBLADDER: The gallbladder appears unremarkable. No cholelithiasis. No gallbladder wall thickening or pericholecystic fluid. No positive sonographic [place] sign reported. BILIARY: There is no intrahepatic or extrahepatic biliary ductal dilatation. Common bile duct measures 4 mm . INFERIOR VENA CAVA: Normal flow. AORTA: No aneurysm. RIGHT KIDNEY: Normal size. Normal echogenicity. There is an 8 mm echogenic lesion on the midportion of the right kidney and there is a 5 mm echogenic lesion on the inferior pole of the right kidney, probably representing angiomyolipomas. No hydronephrosis. Measures 10.9 cm in length. LEFT KIDNEY: Normal size. Normal echogenicity. No solid mass or cyst. No hydronephrosis. Measures 10.9 cm in length. SPLEEN: Normal size. No solid masses. PERITONEAL AND PLEURAL SPACES: No ascites or effusions. OTHER: No other significant finding. THIS IS AN ELECTRONICALLY VERIFIED FINAL REPORT 09/02/2024 6:14 PM - Electronically signed by Terry Almanza M.D. KT: IBBIANA Report ID: [id number] Reading Location: [id number] Procedure Note Terry Almanza MD - 09/02/2024 EXAM DESCRIPTION: US ABDOMEN COMPLETE REASON FOR STUDY: hemochromatosis and elevated ferritin TECHNIQUE: Grayscale images acquired of the abdomen and recorded on PACS. Additional selected color Doppler and spectral images recorded. COMPARISON: None FINDINGS: PANCREAS: Visualized portions of the pancreas are within normal limits. Portions of the pancreatic body and tail are obscured due to bowel gas. LIVER: No masses. Echotexture and echogenicity normal. Main portal vein is patent with antegrade flow. GALLBLADDER: The gallbladder appears unremarkable. No cholelithiasis. No gallbladder wall thickening or pericholecystic fluid. No positive sonographic [place] sign reported. BILIARY: There is no intrahepatic or extrahepatic biliary ductal dilatation. Common bile duct measures 4 mm . INFERIOR VENA CAVA: Normal flow. AORTA: No aneurysm. RIGHT KIDNEY: Normal size. Normal echogenicity. There is an 8 mm echogenic lesion on the midportion of the right kidney and there is a 5 mm echogenic lesion on the inferior pole of the right kidney, probably representing angiomyolipomas. No hydronephrosis. Measures 10.9 cm in length. LEFT KIDNEY: Normal size. Normal echogenicity. No solid mass or cyst. No hydronephrosis. Measures 10.9 cm in length. SPLEEN: Normal size. No solid masses. PERITONEAL AND PLEURAL SPACES: No ascites or effusions. OTHER: No other significant finding. THIS IS AN ELECTRONICALLY VERIFIED FINAL REPORT 09/02/2024 6:14 PM - Electronically signed by Terry Almanza M.D. KT: KT Report ID: [id number] Reading Location: [id number] IMPRESSION: No acute abnormality. 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 us Lavonne Ward PAC IMG US ORDERABLES Final R esult * HEPATITIS PANEL ACUTE (AHP) (07/13/2024 11:36 AM CDT) HEPATITIS A IGM ANTIBODY NON DETECTED NON DETECTED 07/13/2024 9:19 PM CDT [facility] Comment: IGM Antibodies to HAV not detected. Does not exclude early acute or recovered HAV infection. HEP B CORE AB (IGM) NON DETECTED NON DETECTED 07/13/2024 9:19 PM CDT [facility] Comment:IGM anti-HBC not det ected. Does not exclude the possibility of exposure to or infection with HBV. HEPATITIS B SURFACE ANTIGEN NON DETECTED NON DETECTED 07/13/2024 9:19 PM CDT [facility] Comment:A nonreactive test r esult does not exclude the possibility of exposure to or infection with Hepatitis B virus. A nonreactive test result in individuals with prior exposure to hepatitis B may be due to antigen levels below the detection limit of this assay or lack of antigen reactivity to the antibodies in this assay. hepatitis C antibody 0.18 <1 S/CO 07/13/2024 9:19 PM CDT [facility] Comment: Signal/Cutoff ratio < 0.79 is Nondetected Signal/Cutoff ratio 0.80-0.99 is Grayzone Signal/Cutoff ratio > 0.99 is Detected Supplemental assays are recommended if signal/cutoff ratio is >/=1.00. Signal/cutoff ratio result >/= 5.00 is 97% predictive of positivity for recombinant immunoblot assay (RIBA) and will be reported to the [place] [facility] as required. Blood Venipuncture / Unknown 07/13/2024 11:36 AM CDT 07/13/2024 12:05 PM CDT us Aubree Chen MD HEMATOLOGY ORDERABLES Final Res ult [facility] [address] [place] [address], * HENRY SCREENING BILATERAL DIGITAL W CAD W JAMIE (05/01/2024 3:34 PM LOGISTICS VICE PRESIDENT) Anatomical Region Laterality Modality breast Bilateral Mammography 05/01/2024 3:07 PM LOGISTICS VICE PRESIDENT Narrative 05/03/2024 2:04 PM LOGISTICS VICE PRESIDENT - HENRY SCREENING BILATERAL DIGITAL W CAD W JAMIE BILATERAL DIGITAL SCREENING MAMMOGRAM 3D/2D WITH CAD WITH EXAGGERATED CC MEDIOLATERAL OBLIQUE CRANIOCAUDAL: 05/01/2024 The study was acquired using digital technology and interpreted from soft copy. Current study was also evaluated with ICAD version 7.2. 2D digital mammographic views, as well as 3D digital tomosynthesis were performed in the CC and MLO projections. CLINICAL: Routine screening. Patient has no complaints. No personal history of cancer. No family history of breast cancer. COMPARISONS: Comparison is made to exams dated: 12/25/2022, 12/11/2021, and 11/27/2020 [facility]. BREAST TISSUE:There are scattered areas of fibroglandular density. FINDINGS: No significant masses, calcifications, or other findings are seen in either breast. There has been no significant interval change. IMPRESSION: NEGATIVE There is no mammographic evidence of malignancy. A 1 year screening mammogram is recommended. A letter will be sent to the patient with these results. The patient will be entered into a reminder system with a target due date of 1 year for her next screening exam. Electronically signed by: Willem granados/june:05/02/2024 16:53:12 Gasoline Catalyst Operator(s): RT Eloy(R)(M), [facility] letter sent: Normal Exam Reading location: [place] Mammogram BI-RADS: Category 1: Negative Procedure Note Willem Gtz MD - 05/03/2024 - HENRY SCREENING BILATERAL DIGITAL W CAD W JAMIE BILATERAL DIGITAL SCREENING MAMMOGRAM 3D/2D WITH CAD WITH EXAGGERATED CC MEDIOLATERAL OBLIQUE CRANIOCAUDAL: 05/01/2024 The study was acquired using digital technology and interpreted from soft copy. Current study was also evaluated with ICAD version 7.2. 2D digital mammographic views, as well as 3D digital tomosynthesis were performed in the CC and MLO projections. CLINICAL: Routine screening. Patient has no complaints. No personal history of cancer. No family history of breast cancer. COMPARISONS: Comparison is made to exams dated: 12/25/2022, 12/11/2021, and 11/27/2020 [facility]. BREAST TISSUE:There are scattered areas of fibroglandular density. FINDINGS: No significant masses, calcifications, or other findings are seen in either breast. There has been no significant interval change. IMPRESSION: NEGATIVE There is no mammographic evidence of malignancy. A 1 year screening mammogram is recommended. A letter will be sent to the patient with these results. The patient will be entered into a reminder system with a target due date of 1 year for her next screening exam. Electronically signed by: Willem Gtz M.D. /penrad:05/02/2024 16:53:12 Gasoline Catalyst Operator(s): Jennifer Chappell RT(R)(M), [facility] letter sent: Normal Exam Reading location: [place] Mammogram BI-RADS: Category 1: Negative us Saleem Lebron MD IMG MAMMO ORDERABLES Melissa l Result * PATHOLOGY CYTOLOGY EXPORT FREIGHT CLERK (05/21/2016) Specimen of unknown material (specimen) us Mary Thompson APRN PATHOLOGY/CYTOLOGY ORDERABLE S Final Result from Last 3 Months or Most Recently Relevant to Health Maintenance Insurance [facility] Care Teams Book Binder Relationship Specialty Start Date End Date Saleem Lebron MD #[address] [address] PCP - General Family Medicine 2/21/24 Louise Palma APRN, PRESS MACHINE OPERATOR #2 [facility], [address] [place] [address] Nurse Practitioner Cardiology 06/17/23
--- OUTSIDE RECORDS SUMMARY | 2024-11-02 09:28 | XMS_ITS | Encounter Summary ---
Author Organization [facility] Address [address] [place] [address] Phone Care Team Providers Care Obstetrics Specialist Name Role Phone Saleem Lebron MD Primary Care Provider [phone] Louise Palma APRN, ELECTRIC RELAY TESTER Unavailable [phone] Reason for Visit * Reason Comments Medication Refill Encounter Details Date Type Department Care Team (Late st Contact Info) Description 08/31/2023 Refill [facility] - Cardiology - [place] [address] [place] [id number] Saleem Lebron MD #[address] [address] Medication Refill Social History Tobacco Use Types Packs/Day Years Used Date Smoking Tobacco: Never Smokeless Tobacco: Never Alcohol Use Standard Drinks/Week Comments No 0 (1 standard drink = 0.6 oz pur e alcohol) [facility] Utilities Answer Date Recorded In the past 12 months has [employer] electric, gas, oil, or water company threatened to shut off services in your home? No 07/18/2023 Social Connection and Isolation Panel Answer Date Recorded In a typical week, how many times do you talk on the phone with family, friends, or neighbors? Patient declined 07/18/2023 How often do you get togethe r with friends or relatives? Patient declined 07/18/2023 How often do you attend alevism or sabianist serv ices? Patient declined 07/18/2023 Do you belong to any clubs o r organizations such as alevism groups, unions, fraternal or athletic groups, or school groups? Patient declined 07/18/2023 How often do you attend meet ings of the clubs or organizations you belong to? Patient declined 07/18/2023 Are you , , di vorced, , never , or living with a partner? 07/18/2023 AUDIT-C Answer Date Recorded Q1: How often do you have a drink containing alc ohol? Monthly or less 07/18/2023 Q2: How many drinks containi ng alcohol do you have on a typical day when you are drinking? 1 or 2 07/18/2023 Q3: How often do you have si x or more drinks on one occasion? Never 07/18/2023 Overall Financial Resource Strain (CARDIA) Answe r Date Recorded How hard is it for you to pa y for the very basics like food, housing, medical care, and heating? Not very hard 07/18/2023 PHQ-2 Answer Date Recorded Total Score - Questions 1-9 0 09/18 [facility] - Occupational Stress Questionnaire Answer Date Recorded Do you feel stress - tense, restless, nervous, or anxious, or unable to sleep at night because your mind is troubled all the time - these days? Not at all 07/18/2023 Exercise Vital Sign Answer Date Recorde d On average, how many days pe r week do you engage in moderate to strenuous exercise (like a brisk walk)? 5 days 07/18/2023 On average, how many minutes do you engage in exercise at this level? 20 min 07/18/2023 Hunger Vital Sign Answer Date Recorded Within the past 12 months, y ou worried that your food would run out before you got the money to buy more. Never true 07/18/19 24 Within the past 12 months, t he food you bought just didn't last and you didn't have money to get more. Never true 07/18/2023 PRAPARE - Transportation Answer Date Re corded In the past 12 months, has l ack of transportation kept you from medical appointments or from getting medications? No 06/19 In the past 12 months, has l ack of transportation kept you from meetings, work, or from getting things needed for daily living? No 07/18/2023 Housing Stability Vital Sign Answer Olu e [...] place to sleep or slept in a jail (including now)? No 07/18/2023 Education Answer Date Recorded What is the highest level of school you have completed or the highest degree you have received? 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, [employer], [employer]) 12/22/2022 Sexually Active Control Partners Comments Yes Comments No Sex and Gender Information Value Date Recorded Sex Assigned at Not on file Legal Sex Female 9:02 PM CDT Gender Identity Not on file Sexual Orientation Not on file documented as of this encounter Miscellaneous Notes * Telephone Encounter - Johana Garcia RN - 08/31/2023 1:45 PM CDT Medication(s) refilled and signed per [facility] Chronic Medication Refill Standing Order for Pediatricand Adult Patients. Requested Prescriptions Pending Prescriptions Disp Refills metoprolol Succinate (TOPROL-XL) 50 MG TABLET SR 24 HR [Pharmacy Med Name: METOPROLOL SUCCINATE ER TABS 50MG] 90 Tablet 1 Sig: TAKE 1 TABLET DAILY Beta-Blockers Protocol Passed - 08/31/2023 9:35 AM Passed - Visit with relevant provider in past 18 months or upcoming 90 days Recent Visits Date Type Provider Dept 07/19/23 Office Visit Carley Siddiqui, QING [facility] [place] 06/25/23 Office Visit Louise Palma, SUPERVISOR PIPELINES, ELECTRIC RELAY TESTER [facility] [place] 06/08/23 Telemedicine Saleem Lebron MD [facility] [place] 05/25/23 Office Visit Saleem Lebron MD [facility] [place] 12/22/22 Office Visit Sola Jennings APRN, ELECTRIC RELAY TESTER [facility] [place] Showing recent visits within past 548 days and meeting all other requirements Future Appointments No visits were found meeting these conditions. Showing future appointments within next 90 days and meeting all other requirements Passed - BP on record in past 18 months Clinician-entered: BP Readings from Last 3 Encounters: 07/19/23 (!) 124/100 07/16/23 128/83 06/25/23 120/76 Patient-entered: No data recorded rosuvastatin (CRESTOR) 10 MG Tablet [Pharmacy Med Name: ROSUVASTATIN TABS 10MG] 90 Tablet 1 Sig: TAKE 1 TABLET DAILY Hmg CoA Reductase Inhibitors Protocol Passed - 08/31/2023 9:35 AM Passed - No positive test in the past 12 months or most recent test was negative Passed - No active on record Passed - Visit with relevant provider in past 18 months or upcoming 90 days Recent Visits Date Type Provider Dept 07/19/23 Office Visit Carley Siddiqui PAC [facility] [place] 06/25/23 Office Visit Louise Palma APRN, ELECTRIC RELAY TESTER [facility] [place] 06/08/23 Telemedicine Saleem Lebron MD [facility] [place] 05/25/23 Office Visit Saleem Lebron MD [facility] [place] 12/22/22 Office Visit Sola Jennings APRN, [facility] [place] Showing recent visits within past 548 days and meeting all other requirements Future Appointments No visits were found meeting these conditions. Showing future appointments within next 90 days and meeting all other requirements Passed - Lipid panel in past 12 months LDL Date Value Ref Range Status 12/23/2022 160 (H) <130 mg/dL Final 10/14/2021 166 (A) 0 - 130 mg/dL Final 10/14/2021 166 (A) 0 - 130 mg/dL Final 10/14/2021 166 (A) 0 - 130 mg/dL Final HDL CHOLESTEROL Date Value Ref Range Status 12/23/2022 52 >40 mg/dL Final CHOLESTEROL Date Value Ref Range Status 12/23/2022 230 (H) <200 mg/dL Final TRIGLYCERIDES Date Value Ref Range Status 12/23/2022 92 <150 mg/dL Final VLDL Date Value Ref Range Status 12/23/2022 18 10 - 50 mg/dL Final CHOL/HDL RATIO Date Value Ref Range Status 12/23/2022 4.4 0.0 - 4.4 Final NON-HDL CHOLESTEROL Date Value Ref Range Status 12/23/2022 178 (H) <130 mg/dL Final Passed - CMP on record in past 12 months SODIUM Date Value Ref Range Status 07/15/2023 141 136 - 145 mmol/L Final POTASSIUM Date Value Ref Range Status 07/15/2023 4.1 3.5 - 5.1 mmol/L Final CHLORIDE Date Value Ref Range Status 07/15/2023 104 98 - 107 mmol/L Final CO2, VENOUS Date Value Ref Range Status 07/15/2023 27 22 - 30 mmol/L Final ANION GAP Date Value Ref Range Status 07/15/2023 14.1 <18.0 mmol/L Final GLUCOSE Date Value Ref Range Status 07/15/2023 90 70 - 99 mg/dL Final BUN Date Value Ref Range Status 07/15/2023 16 5 - 18 mg/dL Final CREATININE, BLOOD Date Value Ref Range Status 07/15/2023 0.77 0.60 - 1.00 mg/dL Final BUN/CREATININE RATIO Date Value Ref Range Status 07/15/2023 21 (H) 12 - 20 ratio Final TOTAL PROTEIN Date Value Ref Range Status 07/15/2023 7.2 6.3 - 8.2 g/dL Final ALBUMIN Date Value Ref Range Status 07/15/2023 4.2 3.5 - 5.0 g/dL Final A/G RATIO Date Value Ref Range Status 12/23/2022 1.1 1.0 - 2.2 Final CALCIUM Date Value Ref Range Status 07/15/2023 9.4 8.7 - 10.5 mg/dL Final T BILI Date Value Ref Range Status 07/15/2023 0.7 0.2 - 1.2 mg/dL Final SGOT (AST) Date Value Ref Range Status 07/15/2023 18 5 - 34 U/L Final SGPT (ALT) Date Value Ref Range Status 07/15/2023 22 0 - 55 U/L Final ALKALINE PHOSPHATASE Date Value Ref Range Status 07/15/2023 75 40 - 150 U/L Final GFR, EST. NONAFRICAN Date Value Ref Range Status 07/15/2023 >60 >=60 Final GFR, EST. Date Value Ref Range Status 07/15/2023 >60 >=60 Final GFR, ESTIMATED Date Value Ref Range Status 07/15/2023 >60 >=60 Final Comment: Creatinine Clearance is the preferred criteria for selecting drug dose adjustments in renally impaired patients. The GFR is provided as additional pertinent clinical information. GFR is reported in mL/min/1.73 sq m. Calculation based on the Chronic Kidney Disease Epidemiology Collaboration (CKD- EPI) equation refitwithout adjustment for race. IS THE PATIENT REQUIRED TO BE FASTING? Date Value Ref Range Status 12/23/2022 No Final documented in this encounter Plan of Treatment Upcoming Encounters Date Type Department Care Team (Late st Contact Info) Description 11/07/2024 9:00 AM CDT Office Visit [facility] On[facility] [address] [place] [address] Lavonne Ward Nancy, PAC [address] [place] [address] Discharge Disposition: Discharged to home or Selfcare 12/25/2024 3:00 PM CDT Office Visit [facility] Medical [facility] - Cardiology - [place] [address] [place] [address] Ayde Cleaning APRN, ELECTRIC RELAY TESTER [address] [place] [address] 02/06/2025 2:45 PM CDT Office Visit [facility] - Family Medicine [facility] [address] [place] [address] Saleem Lebron MD #[address] [address] documented as of this encounter Visit Diagnoses Not on filedocumented in this encounter Additional Health Concerns Assessment Noted Time PHQ-9 Depression Total Score: 0 10/23/19 20 12:39 PM CDT documented as of this encounter Care Teams Obstetrics Specialist Relationship Specialty Start Date End Date Saleem Lebron MD #[address] [facility] [address] [place] [address] PCP - General Family Medicine 06/09/23 Louise Palma APRN, ELECTRIC RELAY TESTER #[address] [facility], [address] [place] [address] Nurse Practitioner Cardiology 06/17/23 documented as of this encounter
--- NOTE | 2024-11-02 09:44 | ECG_ITS ---
Test Date: 2024-11-02 09:57:59 Measurements Intervals [place] Rate: 57 P: 2 KS: 158 QRS: 4 QRSD: 97 T: -4 QT: 426 QTc: 418 Interpretive Statements SINUS BRADYCARDIA LOW QRS VOLTAGE IN PRECORDIAL LEADS [QRS DEFLECTION < 1.0 mV IN CHEST LEADS] MODERATE ST DEPRESSION [0.05+ mV ST DEPRESSION] No previous ECG available for comparison Electronically Signed On 11-02-2024 14:44:59 CDT by Nando Restrepo M.D.
[2024-11-02 10:03] LABS: Anion Gap 6 mmol/L (4-12); Blood Urea Nitrogen 6 mg/dL (7-17); Calcium 9.2 mg/dL (8.4-10.2); Carbon Dioxide 32 mmol/L (22-30); Chloride 97 mmol/L (98-107); Estimated Glomerular Filt Rate > 60; Glucose 66 mg/dL (65-110); Potassium 3.3 mmol/L (3.4-5.0); Sodium 135 mmol/L (137-145)
== END 2024-11-02 09:21 | disposition home or self-care (01) ==
PROVIDERS: PCP Family Medicine; Visit Provider Anesthesiology
DX: Z01.818 Encounter for other preprocedural examination (principal); I10 Essential (primary) hypertension; E78.5 Hyperlipidemia, unspecified; R00.1 Bradycardia, unspecified
CPT/HCPCS: 36415; 80048; 93005

== ENCOUNTER 2024-11-16 05:43 | Day surgery (SDC) | payer OTHER, SELFPAY ==
[2024-05-31 11:24] VITALS: BMI 36.6
[2024-10-31 13:49] VITALS: BMI 29.0
[2024-11-16] VITALS (11 sets, daily range): BP systolic 104–143; BP diastolic 71–110; PULSE 62–79; RESP 11–17; TEMP 35.7–37.1; O2SAT 95–100
--- OUTSIDE RECORDS SUMMARY | 2024-11-16 06:02 | XMS_ITS | Encounter Summary ---
Author Organization [facility] Address [address] [place] [address] Phone Care Team Providers Care Assignment Desk Assistant Name Role Phone Saleem Lebron MD Primary Care Provider [phone] [phone] Louise Palma APRN, ASSOCIATE PROGRAMMER ANALYST Unavailable +1- [phone] Reason for Visit * Reason Comments Medication Refill Encounter Details Date Type Department Care Team (Late st Contact Info) Description 08/31/2023 Refill [facility] Medical Group - Cardiology - [place] [address]2 [place] [id number] Saleem Lebron MD [address] [address] Medication Refill Social History Tobacco Use Types Packs/Day Years Used Date Smoking Tobacco: Never Smokeless Tobacco: Never Alcohol Use Standard Drinks/Week Comments No 0 (1 standard drink = 0.6 oz pur e alcohol) [facility] Utilities Answer Date Recorded In the past 12 months has [employer] electric, gas, oil, or water company threatened [...] declined 07/18/2023 How often do you attend voodoo or orthodoxy serv ices? Patient declined 07/18/2023 Do you belong to any clubs o r organizations such as voodoo groups, unions, fraternal or athletic groups, or [...] Total Score - Questions 1-9 0 09/18 [facility] - Occupational Stress Questionnaire Answer Date Recorded [...] place to sleep or slept in a residential (including now)? No 07/18/2023 Education Answer Date Recorded What is the highest level of school you have completed or the highest degree you have received? 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, CANDY SEPARATOR HARD, SILVIA) 12/22/2022 Sexually Active Control Partners Comments Yes Comments No Sex and Gender Information Value Date Recorded Sex Assigned at Not on file Legal Sex Female 9:02 PM CDT Gender Identity Not on file Sexual Orientation Not on file documented as of this encounter Miscellaneous Notes * Telephone Encounter - Johana Garcia RN - 08/31/2023 1:45 PM CDT Medication(s) refilled and signed per [facility] Chronic Medication Refill Standing Order for Pediatricand [...] Dept 07/19/23 Office Visit Carley Siddiqui, QING [facility] [place] 06/25/23 Office Visit Louise Palma, CLINICAL LABORATORY DIRECTOR, ASSOCIATE PROGRAMMER ANALYST [facility] Cardiology [place] 06/08/23 Telemedicine Saleem Lebron MD [facility] [place] 05/25/23 Office Visit Saleem Lebron MD [facility] [place] 12/22/22 Office Visit Sola Jennings APRN, ASSOCIATE PROGRAMMER ANALYST [facility] [place] Showing recent visits within past 548 days [...] Dept 07/19/23 Office Visit Carley Siddiqui PAC [facility] [place] 06/25/23 Office Visit Louise Palma APRN, ASSOCIATE PROGRAMMER ANALYST [facility] Cardiology [place] 06/08/23 Telemedicine Saleem Lebron MD [facility] [place] 05/25/23 Office Visit Saleem Lebron MD [facility] [place] 12/22/22 Office Visit Sola Jennings APRN, [facility] [place] Showing recent visits within past 548 [...] Care Team (Late st Contact Info) Description 11/24/2024 2:30 PM CDT Office Visit [facility] Medical Group - Cardiology [facility] #2 [place] [address] Ayde Cleaning APRN, ASSOCIATE PROGRAMMER ANALYST #2 [place] [address] 12/11/2024 3:00 PM CDT Lab [facility] [address] [place] [address] Louis Menjivar MD [address] [place] [address] Lavonne Ward PAC [address] [place] [address] Discharge Disposition: Discharged to home or Selfcare 12/14/2024 3:00 PM CDT Clinical Support [facility] On[facility] Services [address] [place] [address] Ward, Lavonne September, PAC [address] [facility] [place] [address] Discharge Disposition: Discharged to home or Selfcare 01/08/2025 3:20 PM CDT Lab [facility] [address] [place] [address] WardTneaseptember, PAC [address] [place] [address] Discharge Disposition: Discharged to home or Selfcare 01/11/2025 3:00 PM CDT Clinical Support [facility] [address] [place] [address] WardTena taylorseptember, PAC [address] [place] [address] Discharge Disposition: Discharged to home or Selfcare 02/06/2025 2:45 PM CDT Office Visit [facility] Medical Group - Family Medicine [facility] #2 [facility] [place] [address] Saleem Lebron MD #[address] [address] 02/12/2025 3:00 PM CDT Lab [facility] [address] [place] [address] Ward, Lavonne June, PAC [address] [facility] [place] [address] Discharge Disposition: Discharged to home or Selfcare 02/15/2025 2:40 PM CDT Office Visit [facility] 0 [place] [address] Lavonne Ward Nancy, PAC [address] [place] [address] Discharge Disposition: Discharged to home or Selfcare 02/15/2025 3:00 PM CDT Clinical Support [facility] Oncology Services [address] [place] [phone] WardLavonne Nancy, PAC [address] [place] [address] Discharge Disposition: Discharged to home or Selfcare documented as of this encounter Visit Diagnoses Not on filedocumented in this encounter Additional Health Concerns Assessment Noted Time PHQ-9 Depression Total Score: 0 10/23/19 20 12:39 PM CDT documented as of this encounter Care Teams Assignment Desk Assistant Relationship Specialty Start Date End Date Saleem Lebron MD #2 [facility] [address] [place] [address] PCP - General Family Medicine 06/09/23 Louise Palma APRN, ASSOCIATE PROGRAMMER ANALYST #2 [facility], [address] [place] [address] Nurse Practitioner Cardiology 06/17/23 11/06/24 documented as of this encounter
--- OUTSIDE RECORDS SUMMARY | 2024-11-16 06:02 | XMS_ITS | Clinical Summary ---
Author Organization [facility] Address [address] [facility] [address] [place] [address] Phone Care Team Providers Care Nitroglycerin Neutralizer Name Role Phone Unavailable Primary Care Provider Unavailabl e Social History Tobacco Use Types Packs/Day Years Used Date Smoking Tobacco: Never Assessed Comments Unknown Sex and Gender Information Value Date Recorded Sex Assigned at Not on file Legal Sex Female 4:04 PM COUPON COLLECTION CLERK Gender Identity Not on file Sexual Orientation [...] T d or Tdap) 05/21/2026 05/21/2016 Insurance [employer] [facility] [id number]
--- OUTSIDE RECORDS SUMMARY | 2024-11-16 06:02 | XMS_ITS | Encounter Summary ---
Author Organization [facility] Address [address] [place] [address] Phone Care Team Providers Care Auto Claim Representative Name Role Phone Saleem Lebron MD Primary Care Provider [phone] [phone] Louise Palma REINFORCING STEEL WORKER WIRE MESH, PRODUCTION DESIGNER Unavailable +1- [phone] Encounter Details Date Type Department Care Team (Latest Contact Info) Description 10/31/2024 Results Follow-Up [facility] Oncology Services [address] [place] [address] Lavonne Ward Nancy, PAC [address] [place], [place] [id number] FERRITIN, IRON,TRANSFERN,CALC.T IBC,%SAT, CBC WITH AUTO DIFFERENTIAL Social History Tobacco Use Types Packs/Day Years Used Date Smoking Tobacco: Never Smokeless Tobacco: Never Alcohol Use Standard Drinks/Week Comments No 0 (1 standard drink = 0.6 oz pur e alcohol) [facility] Utilities Answer Date Recorded In the past [...] declined 06/05/2024 How often do you attend hinduism or jewish serv ices? Patient declined 06/05/2024 Do you belong to any clubs o r organizations such as hinduism groups, unions, fraternal or athletic groups, or [...] Total Score - Questions 1-9 0 05/20 [facility] - Occupational Stress Questionnaire Answer Date [...] place to sleep or slept in a care home (including now)? No 07/18/2023 Overall Financial [...] were you homeless or living in a care home (including now)? No 10/10/2024 Education Answer Date Recorded What is the highest level of school you have completed or the highest degree you have received? 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, TRIMMER SAWYER, SILVIA) 12/22/2022 Sexually Active Control Partners Comments [...] Description 11/24/2024 2:30 PM CDT Office Visit [facility] - Cardiology - [place] [address] [place] [address] Ayde Cleaning, REINFORCING STEEL WORKER WIRE MESH, PRODUCTION DESIGNER [address] [place] [address] 12/11/2024 3:00 PM CDT Lab [facility] Oncology Services [address] [place] [address] Louis Menjivar MD [address] [place] [address] WardLavonne taylor September, PAC [address] [place] [address] Discharge Disposition: Discharged to home or Selfcare 12/14/2024 3:00 PM CDT Clinical Support [facility] Oncology Services [address] [place] [address] Lavonne Ward September, PAC [address] [place] [address] Discharge Disposition: Discharged to home or Selfcare 01/08/2025 3:20 PM CDT Lab [facility] Oncology Services [address] [place] [address] Lavonne Ward September, PAC [address] [place] [address] Discharge Disposition: Discharged to home or Selfcare 01/11/2025 3:00 PM CDT Clinical Support [facility] Oncology Services [address] [place] [address] Lavonne Ward September, PAC [address] [place] [address] Discharge Disposition: Discharged to home or Selfcare 02/06/2025 2:45 PM CDT Office Visit [facility] Medical Group - Family [facility] #2 [place] [address] Saleem Lebron MD #2 [facility] [address] [place] [address] 02/12/2025 3:00 PM CDT Lab [facility] [address] [place] [address] WardTenae September, PAC [address] [place] [address] Discharge Disposition: Discharged to home or Selfcare 02/15/2025 2:40 PM CDT Office Visit [facility] Oncology Services [address] [place] [address] [facility] September, PAC [address] [place] [address] Discharge Disposition: Discharged to home or Selfcare 02/15/2025 3:00 PM CDT Clinical Support [facility] Oncology Services [address] [place] [address] [place] Lavonne September, PAC [address] [place] [address] Discharge Disposition: Discharged to home or Selfcare documented as of this encounter Visit Diagnoses Not on filedocumented in this encounter Additional Health Concerns Assessment Noted Time PHQ-9 Depression Total Score: 0 06/06/19 25 3:09 PM STAINED GLASS INSTALLER documented as of this encounter Care Teams Auto Claim Representative Relationship Specialty Start Date End Date Saleem Lebron MD #2 [facility] [address] [place] [address] PCP - General Family Medicine 06/09/23 Louise Palma, REINFORCING STEEL WORKER WIRE MESH, PRODUCTION DESIGNER #2 [facility] [address] [place] [address] Nurse Practitioner Cardiology 06/17/23 11/06/24 documented as of this encounter
--- OUTSIDE RECORDS SUMMARY | 2024-11-16 06:02 | XMS_ITS | Encounter Summary ---
Author Organization [facility] Address [address] [place] [address] Phone Care Team Providers Care Visual Basic Programmer Name Role Phone Saleem Lebron MD Primary Care Provider [phone] [phone] Louise Palma APRN, CHIEF ELECTRICIAN Unavailable +1- [phone] Encounter Details Date Type Department Care Team (Late st Contact Info) Description 10/16/2024 Results Follow-Up [facility] Medical Group - Family Medicine [facility] #2 [place] [address] Saleem Lebron MD #[address] [address] CBC WITH AUTO DIFFERENTIAL Social History Tobacco Use Types Packs/Day Years Used Date Smoking Tobacco: Never Smokeless Tobacco: Never Alcohol Use Standard Drinks/Week Comments No 0 (1 standard drink = 0.6 oz pur e alcohol) [facility] Utilities Answer Date Recorded In the past 12 months has [employer] electric, gas, oil, or water company threatened [...] declined 06/05/2024 How often do you attend gnosticist or gnosticist serv ices? Patient declined 06/05/2024 Do you belong to any clubs o r organizations such as gnosticist groups, unions, fraternal or athletic groups, or [...] Score - Questions 1-9 0 05/20 [facility] - Occupational Stress [...] place to sleep or slept in a senior living (including now)? No 07/18/2023 Overall Financial Resource [...] were you homeless or living in a senior living (including now)? No 10/10/2024 Education Answer Date Recorded What is the highest level of school you have completed or the highest degree you have received? 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, ASSOCIATE DIRECTOR, SILVIA) 12/22/2022 Sexually Active Control Partners Comments [...] Visit [facility] - Cardiology - [place] #[address] [place] [address] Ayde Cleaning, BUDGET TECHNICIAN, CHIEF ELECTRICIAN [address] [place] [address] 12/11/2024 3:00 PM CDT Lab [facility] Oncology Services [address] [place] [address] Louis Menjivar MD [address] [place] [address] Ward Lavonne June, PAC [address] [place] [address] Discharge Disposition: Discharged to home or Selfcare 12/14/2024 3:00 PM CDT Clinical Support [facility] Oncology Services [address] [place] [address] WardLavonne September, PAC [address] [place] [address] Discharge Disposition: Discharged to home or Selfcare 01/08/2025 3:20 PM CDT Lab [facility] Oncology Services [address] [place] [address] Ward Lavonne September, PAC [address] [place] [address] Discharge Disposition: Discharged to home or Selfcare 01/11/2025 3:00 PM CDT Clinical Support [facility] Oncology Services [address] [place] [address] KennettScottLavonne June, PAC [address] [place] [address] Discharge Disposition: Discharged to home or Selfcare 02/06/2025 2:45 PM CDT Office Visit [facility] Medical Group - Family [facility] #2 [place] [address] Saleem Lebron MD #2 [facility] [address] [place] [address] 02/12/2025 3:00 PM CDT [facility] [address] [place] [address] Ward Lavonne June, PAC [address] [place] [address] Discharge Disposition: Discharged to home or Selfcare 02/15/2025 2:40 PM CDT Office Visit [facility] Oncology Services [address] [place] [address] [facility] Lavonne June, PAC [address] [place] [address] Discharge Disposition: Discharged to home or Selfcare 02/15/2025 3:00 PM CDT Clinical Support [facility] Oncology Services [address] [place] [address] [place] Lavonne September, PAC 0 [place] [address] Discharge Disposition: Discharged to home or Selfcare documented as of this encounter Visit Diagnoses Not on filedocumented in this encounter Additional Health Concerns Assessment Noted Time PHQ-9 Depression Total Score: 0 06/06/19 25 3:09 PM PSYCHOLOGIST PERSONNEL documented as of this encounter Care Teams Visual Basic Programmer Relationship Specialty Start Date End Date Saleem Lebron MD #2 [facility] [address] [place] [address] PCP - General Family Medicine 06/09/23 Louise Palma, BUDGET TECHNICIAN, CHIEF ELECTRICIAN #2 [facility] [address] [place] [address] Nurse Practitioner Cardiology 06/17/23 11/06/24 documented as of this encounter
--- OUTSIDE RECORDS SUMMARY | 2024-11-16 06:02 | XMS_ITS | Encounter Summary ---
Author Organization [facility] Address [address] [place] [address] Phone Care Team Providers Care Automotive Instructor Name Role Phone Saleem Lebron MD Primary Care Provider +1 -[phone] Louise Palma APRN, ENDOSCOPY RN Unavailable +1- [phone] Encounter Details Date Type Department Care Team (Late st Contact Info) Description 10/22/2024 Results Follow-Up [facility] Medical Group - Family Medicine [facility] #2 [place] [address] Saleem Lebron MD #[address] [address] BASIC METABOLIC PANEL W/ CALCIUM TOTAL, BASIC METABOLIC PANEL W/ CALCIUM TOTAL, THYROID STIMULATING HORMONE (TSH), LIPID PANEL Social History Tobacco Use Types Packs/Day Years Used Date Smoking Tobacco: Never Smokeless Tobacco: Never Alcohol Use Standard Drinks/Week Comments No 0 (1 standard drink = 0.6 oz pur e alcohol) [facility] Utilities Answer Date Recorded In the past 12 months has [employer], gas, oil, or water company threatened to [...] declined 06/05/2024 How often do you attend islam or scientologist serv ices? Patient declined 06/05/2024 Do you belong to any clubs o r organizations such as islam groups, unions, fraternal or athletic groups, or [...] Total Score - Questions 1-9 0 05/20 [facility] ional Health - Occupational [...] place to sleep or slept in a usp (including now)? No 07/18/2023 Overall Financial Resource [...] were you homeless or living in a usp (including now)? No 10/10/2024 Education Answer Date Recorded What is the highest level of school you have completed or the highest degree you have received? 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, WATERSHED ENGINEER, SILVIA) 12/22/2022 Sexually Active Control Partners Comments [...] Office Visit [facility] - Cardiology [place] #[address] [place] [address] Ayde Cleaning APRN, ENDOSCOPY RN #2 [place] [address] 12/11/2024 3:00 PM CDT Lab [facility] Oncology Services [address] [place] [address] Louis Menjivar MD [address] [place] [address] Lavonne Ward September, PAC [address] [place] [address] Discharge Disposition: Discharged to home or Selfcare 12/14/2024 3:00 PM CDT Clinical Support [facility] Oncology Services [address] [place] [address] Lavonne Ward September, PAC [address] [place] [address] Discharge Disposition: Discharged to home or Selfcare 01/08/2025 3:20 PM CDT Lab [facility] Oncology Services [address] [place] [address] Lavonne Ward September, PAC [address] [place] [address] Discharge Disposition: Discharged to home or Selfcare 01/11/2025 3:00 PM CDT Clinical Support [facility] Oncology Services [address] [place] [address] Lavonne Ward September, PAC [address] [place] [address] Discharge Disposition: Discharged to home or Selfcare 02/06/2025 2:45 PM CDT Office Visit [facility] Medical Group - Family [facility] #2 [place] [address] Saleem Lebron MD #2 [facility] [address] [address] 02/12/2025 3:00 PM CDT [facility] [address] [place] [address] Lavonne Ward Nancy, PAC [address] [place] [address] Discharge Disposition: Discharged to home or Selfcare 02/15/2025 2:40 PM CDT Office Visit [facility] Oncology Services [address] [place] [address] Lavonne Ward Nancy, PAC [address] [place] [address] Discharge Disposition: Discharged to home or Selfcare 02/15/2025 3:00 PM CDT Clinical Support [facility] Oncology Services [address] [place] [address] Lavonne Ward Nancy, PAC [address] [place] [address] Discharge Disposition: Discharged to home or Selfcare documented as of this encounter Results * BASIC METABOLIC PANEL W/ CALCIUM TOTAL (10/24/2024 10:20 AM CDT) SODIUM 138 136 - 145 mmol/L 10/24/2024 11:[address] [facility] POTASSIUM 3.7 3.5 - 5.1 mmol/L 10/24/2024 11:[address] CHLORIDE 102 98 - 107 mmol/L 10/24/2024 11:43 AM CDT [facility] CO2, VENOUS 29 22 - 30 mmol/L 10/24/2024 11:43 AM CDT [facility] ANION GAP 10.7 <18.0 mmol/L 10/24/2024 11:43 AM CDT [facility] GLUCOSE 96 70 - 99 mg/dL 10/24/2024 11:[address] BUN 10 10 - 20 mg/dL 10/24/2024 11:[address] [facility] CREATININE, BLOOD 0.69 0.60 - 1.00 mg/dL 10/24/2024 11:43 AM CDT [facility] BUN/CREATININE RATIO 14 12 - 20 ratio 10/24/2024 11:43 AM CDT [facility] CALCIUM 9.2 8.7 - 10.5 mg/dL 10/24/2024 11:43 AM CDT [facility] IS THE PATIENT REQUIRED TO BE FASTING? No 10/24/2024 11:43 AM CDT [facility] GFR, ESTIMATED >60 >=60 10/24/2024 11:43 AM CDT [facility] Comment: Creatinine Clearance is the preferred criteria for selecting drug dose adjustments in renally impaired patients. The GFR is provided as additional pertinent clinical information. GFR is reported in mL/min/1.73 sq m. Calculation based on the Chronic Kidney Disease Epidemiology Collaboration (CKD- EPI) equation refit without adjustment for race. GFR, EST. >60 >=60 025 11:[address] GFR, EST. NONAFRICAN >60 >=60 10/24/2024 11:43 AM CDT [facility] Blood Venipuncture / Unknown 10/24/2024 10:20 AM CDT 10/24/2024 10:56 AM CDT us Saleem Lebron MD CHEMISTRY ORDERABLES Melissa l Result [facility] #1 [place] [address] documented in this encounter Visit Diagnoses Diagnosis Hypokalemia- Primary Hypopotassemia documented in this encounter Additional Health Concerns Assessment Noted Time PHQ-9 Depression Total Score: 0 06/06/19 25 3:09 PM SIEBEL ADMINISTRATOR documented as of this encounter Care Teams Automotive Instructor Relationship Specialty Start Date End Date Saleem Lebron MD #[address] [facility] [address] [facility] [address] [place] [address] PCP - General Family Medicine 06/09/23 Louise Palma APRN, ENDOSCOPY RN #[address] [facility], [address] [place] [address] Nurse Practitioner Cardiology 06/17/23 11/06/24 documented as of this encounter
--- OUTSIDE RECORDS SUMMARY | 2024-11-16 06:02 | XMS_ITS | Encounter Summary ---
Author Organization [facility] Address [address] [place] [address] Phone Care Team Providers Care Clam Shucker Name Role Phone Shu Branch MD Primary Care Provider Unav ailable Saleem Lebron MD Primary Care Provider [phone] Louise Palma APRN, CHLORINE CELLS OPERATOR Unavailable [phone] Reason for Visit * Reason Comments Medication Refill Encounter Details Date Type Department Care Team (Late st Contact Info) Description 05/26/2023 Refill [facility] [address] [place] [address] Saleem Lebron MD [address] [address] Medication Refill Social History Tobacco Use Types [...] 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, PRESSING MACHINE OPERATOR, SILVIA) 12/22/2022 Sexually Active Control Partners Comments Yes Comments No Sex and Gender Information Value Date Recorded Sex Assigned at Not on file Legal Sex Female 9:02 PM CDT Gender Identity Not on file Sexual Orientation Not on file documented as of this encounter Miscellaneous Notes * Telephone Encounter - Johana Garcia RN - 05/27/2023 9:01 AM CST Ordered 2 days ago ERMAKER HELPER documented in this encounter Plan of Treatment Upcoming Encounters Date Type Department Care Team (Late st Contact Info) Description 11/24/2024 2:30 PM CDT Office Visit [facility] - Cardiology [facility] [address] [place] [address] Ayde Cleaning APRN, CHLORINE CELLS OPERATOR [address] [place] [address] 12/11/2024 3:00 PM CDT [facility] [address] [place] [phone] Louis Menjivar MD [address] [place] [address] Lavonne Ward, PAC [address] [place] [address] Discharge Disposition: Discharged to home or Selfcare 12/14/2024 3:00 PM CDT Clinical Support [facility] [address] [place] [phone] Lavonne Ward, PAC [address] [place] [address] Discharge Disposition: Discharged to home or Selfcare 01/08/2025 3:20 PM CDT Lab [facility] [address] [place] [address] Tena Wardseptember, PAC [address] [place] [address] Discharge Disposition: Discharged to home or Selfcare 01/11/2025 3:00 PM CDT Clinical Support [facility] [address] [place] [address] Lavonne Ward September, PAC [address] [place] [address] Discharge Disposition: Discharged to home or Selfcare 02/06/2025 2:45 PM CDT Office Visit [facility] Medical [facility] - Family [facility] [address] [facility] [place] [address] Saleem Lebron MD #[address] [address] 02/12/2025 3:00 PM CDT Lab [facility] [address] [place] [address] Tena Wardseptember, PAC [address] [place] [address] Discharge Disposition: Discharged to home or Selfcare 02/15/2025 2:40 PM CDT Office Visit [facility] [address] [place] [address] Tena Wardseptember, PAC [address] [place] [address] Discharge Disposition: Discharged to home or Selfcare 02/15/2025 3:00 PM CDT [facility] [address] [place] [phone] Lavonne Ward Nancy, [facility] [address] [place] [address] Discharge Disposition: Discharged to home or Selfcare documented as of this encounter Visit Diagnoses Diagnosis Primary hypertension Unspecified essential hypertension documented in this encounter Additional Health Concerns Infection Onset Date Last Indicated Resolved Time Respiratory Rule-Out 07/19/2023 07/19/2023 024 11:52 AM CDT Assessment Noted Time PHQ-9 Depression Total Score: 0 10/23/19 12:39 PM CDT documented as of this encounter Care Teams Clam Shucker Relationship Specialty Start Date End Date Shu Branch MD PCP - General Family Medicine 05/20/16 06/08/23 Saleem Lebron MD [address]2 [facility] [address] [place] [address] PCP - General Family Medicine 06/09/23 Louise Palma APRN, CHLORINE CELLS OPERATOR [address]2 [facility], [address] [place] [address] Nurse Practitioner Cardiology 06/17/23 11/06/24 documented as of this encounter
--- OUTSIDE RECORDS SUMMARY | 2024-11-16 06:02 | XMS_ITS | Patient Health Record ---
Author Organization [facility] Address [address] [place] [address] Care Team Providers Care Bilingual Branch Manager Name Role Phone Tarsha Knapp Unavailable [phone] Allergies No Known Allergies Reason For Referral No Information Medications Medication SIG (Take, Route, Frequency, Duration) Notes Start Date End Date Status Multivitamin Adult take 1 capsule by oral route daily Oral 1 Active Joint Support Complex [id number] mg take 1 capsule by oral route daily Oral 1 *Reorder from [employer] for eRx and Interaction Alerts* Active ZyrTEC Allergy 10 MG take 1 tablet (10 mg) by oral route once daily Oral 1 Active Plan Of Treatment No Information Insurance Providers Payer Name Payer Address Payer Phone Subscriber Number Group Number Insured Name Patient Relationship to Insured Coverage Start Date Coverage End Date DO NOT USE [id number] Savanah Zapien Self - patient is the insured Medical (General) History Surgical History Surgery Date(Month/Year) ACL repair, Date of Procedure: 2017;
--- OUTSIDE RECORDS SUMMARY | 2024-11-16 06:02 | XMS_ITS | Clinical Summary ---
Author Organization [facility] Address [address] [place] [address] Care Team Providers Care Boring Machine Set Up Operator Name Role Phone Yosi Lebron MD Primary Care Provider [phone] Allergies No known active allergies Active Problems Problem Noted Date Diagnosed Date Possible , not yet confirmed 08/01/2014 Female infertility 07/11/2014 Encounters Date Type Department Care Team Description 10/08/2024 9:39 PM CDT - 10/09/2024 1:06 AM CDT Emergency [facility] Emergency Department [address] [place] [address] Bassam Gabriel MD Chest pain, unspecified type [...] on file Legal Sex Female 7:33 PM RISK ANALYST Gender Identity Not on file Sexual Orientation [...] HEPATITIS C AB Routine 05/29/2014 5:00 AM RISK ANALYST from Last 3 Months or Most Recently Relevant to Health Maintenance Results * Magnesium (10/08/2024 10:53 PM CDT) Magnesium 1.9 1.4 - 2.5 mg/dL Blood 10/08/2024 10:5 3 PM CDT 10/09/2024 12:21 AM CDT us Bassam Gabriel MD LAB BLOOD ORDERABLE S Final Result [facility] ([place]) 1 [facility] Department of Laboratories [place], [place] [id number] * XR Chest 1 View (10/08/2024 10:37 [...] Terry Granado M.D. KH: [place] Report ID: [id number] Reading Location: [id number] Procedure Note Terry Granado MD - 10/08/2024 [...] Terry Granado M.D. KH: [place] Report ID: [id number] Reading Location: [place] [address] us Bassam Gabriel MD IMG XR PROCEDURES [...] BLOOD ORDERABLE S Final Result [facility] ([place]) 1 [facility] [place] [address] * eGFR (10/08/2024 9:43 PM CDT) [facility] eGFR >90 >=60 mL/min/1. 73 m2 Comment: [...] MD LAB BLOOD ORDERABLE S Final Result [facility] ([place]) 1 [facility] Department [place] [address] * (ABNORMAL) Differential, auto (10/08/2024 9:43 PM CDT) Pathologist [facility] Neutrophil abs 8.14(H) 1.50 - 6.50 K/cumm [...] S Final Result [facility] ([place]) 1 [facility] [place] [address] * (ABNORMAL) CBC with auto differential (10/08/2024 [...] MD LAB BLOOD ORDERABLE S Final Result [facility] ([place]) 1 [facility] [place] [address] * (ABNORMAL) Comprehensive metabolic panel [...] S Final Result [facility] ([place]) 1 [facility] [place] [address] * ECG 12 lead (10/08/2024 9:38 PM CDT) 10/08/2024 9:38 PM CDT Narrative [facility] - 10/09/2024 7:29 AM CDT Vent Rate: 67 bpm RR Interval: 885 msec DC Interval: 171 msec QRS Duration: 102 msec QT Interval: 385 msec QTC Interval: 401 msec P-R-T [place]: 12 - 15 - 6 degrees IMPRESSION: Baseline artifact SINUS RHYTHM NORMAL ECG Electronically Signed By: Josse Jeff MD us Bassam Gabriel MD ECG ORDERABLES Fin al Result [facility] * Serum Hepatitis C ab (05/29/2014 5:00 AM RISK ANALYST) HCV ab Negative NEG HISTORICAL RESULTS Serum 05/29/2014 5:00 AM RISK ANALYST Narrative HISTORICAL RESULTS - 05/30/2014 4:23 AM RISK ANALYST {Testing performed by: [place] [address]} Interpretive Data If confirmation is required, call Laboratory Customer Service to request sample to be sent to [facility] for Hepatitis C Virus (HCV) RNA Detection and Quantitation by Real-Time Reverse Equine Internship-PCR (RT-PCR). Current interpretive data was last revised on 2011 us Dacia Doyle MD LAB BLOOD ORDERABLES Final R esult HISTORICAL RESULTS from Last 3 Months or Most Recently Relevant to Health Maintenance Insurance [employer] [place] [address] Care Teams Boring Machine Set Up Operator Relationship Specialty Start Date End Date Yosi Lebron MD [address] [place] [address] PCP - General Pulmonary Disease 10/08/24
--- OUTSIDE RECORDS SUMMARY | 2024-11-16 06:02 | XMS_ITS | Clinical Summary ---
Author Organization [facility] Address [address] [place] [address] Phone Care Team Providers Care Implementation Manager Name Role Phone Saleem Lebron MD Primary Care Provider [phone] Allergies Active Allergy Reactions Criticality Noted Date Comments Other Runny Nose 05/21/2016 seasonal Medications cetirizine (ZyrTEC) 10 MG Tablet Take 10 mg by mouth daily. Active celecoxib (CeleBREX) 200 MG Capsule TAKE 1 CAPSULE BY MOUTH DAILY WITH FOOD 2 Active Blood Pressure Monitoring (Blood Pressure Cuff) MiscIndications: Primary hypertension Dispense battery-oper ated arm cuff. Dx: I10 1 Each 4 Active metoprolol Succinate (TOPROL-XL) 50 MG TABLET SR 24 HR TAKE 1 TABLET DAILY 90 Tablet 3 4 Active risedronate (ACTONEL) 35 MG Tablet Take 35 mg by mouth every 7 days. Active potassium chloride CR (KLORCON) 10 MEQ Tablet Controlled Release Take 2 Tablets by mouth daily. 180 Tablet 3 5 Active ALPRAZolam (XANAX) 0.25 MG TabletIndication s:Anxiety Take 1 Tablet by mouth daily as needed for Anxiety for up to 30 days. 30 Tablet 5 12/03/19 Active traMADol (ULTRAM) 50 MG Tablet Take 50 mg by mouth every 6 hours as needed. 5 Active calcium 600 MG Tablet Take 600 mg by mouth daily. Active amLODIPine (NORVASC) 2.5 MG Tablet Take 1 Tablet by mouth daily. 90 Tablet 3 5 Active hydroCHLOROthiaz radha (MICROZIDE) 12.5 MG CapsuleIndicatio ns:Primary hypertension Take 2 Capsules by mouth daily. 180 Capsule 3 5 Active hydroCHLOROthiaz radha (MICROZIDE) 12.5 MG CapsuleIndicatio ns:Primary hypertension Take 2 Capsules by mouth daily. 180 Capsule 3 4 11/11/19 Discontinu ed(Reorder ) amLODIPine (NORVASC) 2.5 MG Tablet Take 1 Tablet by mouth daily. 90 Tablet 3 4 11/03/19 Discontinu ed(Reorder ) ALPRAZolam (XANAX) 0.25 MG TabletIndication s:Anxiety Take 1 Tablet by mouth daily as needed for Anxiety for up to 30 days. 30 Tablet 5 11/03/19 25 Discontinu ed(Reorder ) amLODIPine (NORVASC) 2.5 MG Tablet Take 1 Tablet by mouth daily. 90 Tablet 3 5 11/08/19 25 Discontinu ed(Reorder ) hydroCHLOROthiaz radha (MICROZIDE) 12.5 MG CapsuleIndicatio ns:Primary hypertension Take 2 Capsules by mouth daily. 180 Capsule 3 5 11/16/19 25 Discontinu ed(Reorder ) Active Problems Problem Noted Date Diagnosed Date [...] Encounters Date Type Department Care Team Description 11/15/[facility]24 [facility] [place] [address] [place] [address] Ayde Cleaning APRN, ISHMAEL Medication Refill 11/10[facility] [place] [address] Ayde Cleaning APRN, ROOFER ASSISTANT Medication Refill 11/09/2024 1:30 PM CDT Clinical Support [facility] On[facility] Services [address] [place] [address] Lavonne Ward, PAC Elevated ferritin (Primary Dx) Discharge Disposition: Discharged to home or Selfcare 11/09/2024 Travel 11/07/2024 9:00 AM CDT Office Visit [facility] [address] [place] [address] Lavonne Ward, PAC Elevated ferritin (Primary Dx); Iron deficiency anemia, unspecified iron deficiency anemia type Discharge Disposition: Discharged to home or Selfcare 11/07/2024 [facility] [place] [address] [place] [address] Ayde Cleaning APRN, ISHMAEL Medication Refill 11/07/2024 Travel 11/02/2024 MyChart RX Renewal [facility] [place] [address] [place] [address] Saleem Lebron MD Medication Renewal Reviewed 11/02/2024 [facility] [place] [address] [place] [address] Ayde Cleaning APRN, ISHMAEL Medication Refill 11/02/2024 Results Follow-Up [facility] [place] [address] [place] [address] Saleem Lebron MD BASIC METABOLIC PANEL W/ CALCIUM TOTAL 10/31/2024 Results Follow-Up [facility] Services [address] [place] [address] WardLavonne taylor September, PAC FERRITIN, IRON,TRANSFERN,CALC.TI BC,%SAT, CBC WITH AUTO DIFFERENTIAL 10/31/2024 Travel 10/31/2024 Telephone [facility] Services [address] [place] [address] Lavonne Ward September, PAC 10/24/2024 Travel 10/22/2024 Results Follow-Up [facility] [place] [address] [place] [address] Saleem Lebron MD BASIC METABOLIC PANEL W/ CALCIUM TOTAL, BASIC METABOLIC PANEL W/ CALCIUM TOTAL, THYROID STIMULATING HORMONE (TSH), LIPID PANEL 10/16/2024 Results Follow-Up [facility] [place] [address] [place] [address] Saleem Lebron MD CBC WITH AUTO DIFFERENTIAL 10/13/2024 Travel 10/12/2024 3:55 PM CDT Lab [facility] Laboratory Services [address] [place] [address] Saleem Lebron MD Hypokalemia; Anxiety; Hyperlipidemia, unspecified hyperlipidemia type Discharge Disposition: Discharged to home or Selfcare 10/12/2024 3:15 PM CDT Office Visit [facility] [place] [address] [place] [address] Saleem Lebron MD Anxiety (Primary Dx); Primary hypertension; Hypokalemia; Hyperlipidemia, unspecified hyperlipidemia type; Leukocytosis, unspecified type Discharge Disposition: Discharged to home or Selfcare 10/10/2024 1:00 PM CDT Clinical Support [facility] [place] [address] [place] [address] [facility] [place] Blood pressure check (Primary Dx) Discharge Disposition: Discharged to home or Selfcare 10/09/2024 Telephone [facility] [place] [address] [place] [address] Saleem Lebron MD Appointment 10/09/2024 Travel 08/31/2024 2:50 PM CDT Lab [facility] Oncology Services [address] [place] [address] Lavonne Ward, PAC Elevated ferritin Discharge Disposition: Discharged to home or Selfcare 08/31/2024 6:59 AM CDT - 08/31/2024 11:59 PM CDT Hospital Encounter [facility] Ultrasound [address] [place] [address] Lavonne Ward, QING Discharge Disposition: Discharged to home or Selfcare 08/31/2024 Travel 08/30/2024 Travel from Last 3 Months Immunizations Immunization [...] Never Smokeless Tobacco: Never Tobacco Cessation:Counseling Given: Not Answered Alcohol Use Standard Drinks/Week Comments No 0 (1 standard drink = 0.6 oz pur e alcohol) [facility] Utilities Answer Date Recorded In the past 12 months has [employer], gas, oil, or water company threatened to [...] declined 06/05/2024 How often do you attend mu-ism or alevism serv ices? Patient declined 06/05/2024 Do you belong to any clubs o r organizations such as mu-ism groups, unions, fraternal or athletic groups, or [...] Total Score - Questions 1-9 0 05/20 [facility] of Occupat ional [facility] - Occupational Stress Questionnaire Answer Date [...] place to sleep or slept in a custodial (including now)? No 07/18/2023 Overall Financial Resource [...] any time in the past 12 m [facility], were you homeless or living in a custodial (including now)? No 10/10/2024 Education Answer Date Recorded What is the highest level of school you have completed or the highest degree you have received? 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, CHIROPRACTIC PRACTICE MANAGER, SILVIA) 12/22/2022 Sexually Active Control Partners Comments Yes Post-menopausal Male Comments No Sex and Gender Information Value Date Recorded Sex Assigned at Not on file Legal Sex Female 9:02 PM CDT Gender Identity Not on file Sexual Orientation Not on file Last Filed Vital Signs Vital Sign Reading Time Taken Comments Blood Pressure 100/70 11/09/2024 2:25 PM CDT Pulse 67 11/09/2024 2:25 PM CDT Temperature 36.7 C (98 F) 11/09/2024 1:30 PM CDT Respiratory Rate 16 11/09/2024 1:30 PM CDT Oxygen Saturation 100% 11/09/2024 1:30 PM CDT Inhaled Oxygen Concentration - - Weight 85.3 kg (188 lb) 11/07/2024 9:02 AM CDT Height 170.2 cm (5' 7) 10/12/2024 3:05 PM CDT Body Mass Index 29.44 10/12/2024 3:05 PM CDT Plan of Treatment Upcoming Encounters Date Type Department Care Team (Late st Contact Info) Description 11/24/2024 2:30 PM CDT Office Visit [facility] - Cardiology - [place] [address] [place] [address] Ayde Cleaning, BLUEPRINT DUPLICATOR, ROOFER ASSISTANT [address] [place] [address] 12/11/2024 3:00 PM CDT [facility] [address] [place] [address] Louis Menjivar MD [address] [place] [address] Lavonne Ward PAC [address] [place] [address] Discharge Disposition: Discharged to home or Selfcare 12/14/2024 3:00 PM CDT Clinical Support [facility] Services [address] [place] [address] Lavonne Ward PAC [address] [place] [address] Discharge Disposition: Discharged to home or Selfcare 01/08/2025 3:20 PM CDT [facility] [address] [place] [address] Lavonne Ward PAC [address] [place] [address] Discharge Disposition: Discharged to home or Selfcare 01/11/2025 3:00 PM CDT Clinical Support [facility] Oncology Services [address] [place] [address] Ward, Lavonne June, PAC [address] [place] [address] Discharge Disposition: Discharged to home or Selfcare 02/06/2025 2:45 PM CDT Office Visit [facility] - [facility] [address] [place] [address] Saleem Lebron MD [address] [address] 02/12/2025 3:00 PM CDT Lab [facility] [address] [place] [address] WardTenaseptember, PAC [address] [place] [address] Discharge Disposition: Discharged to home or Selfcare 02/15/2025 2:40 PM CDT [facility] [address] [place] [address] Tena Wardseptember, PAC [address] [place] [address] Discharge Disposition: Discharged to home or Selfcare 02/15/2025 3:00 PM CDT Clinical Support [facility] Services [address] [place] [address] Tena Wardseptember, PAC [address] [place] [address] Discharge Disposition: Discharged to home or Selfcare Health Maintenance Due Date Last Done Comments [...] Influenza Immunization (#1) 2024 Mammogram 05/01/2025 05/01/2024, 11/2022, 12/25/2022, Additional history exists Td Immunization Every [...] Procedure Name Priority Date/Time Associated Diagnosis Comments BASIC METABOLIC PANEL W/ CALCIUM TOTAL Routine 11/02/2024 12:00 AM CDT CBC WITH AUTO DIFFERENTIAL Routine 10/31/2024 11:12 [...] Elevated ferritin HEREDITARY HEMOCHROMATOSIS, HFE [facility]IANT [facility]YS[facility]- [facility] Routine 08/31/2024 2:59 PM CDT Elevated ferritin US ABDOMEN COMPLETE Routine 08/31/2024 7 :40 AM CDT Elevated ferritin HEPATITIS PANEL ACUTE (AHP) Routine 07/13/2024 11:36 AM CDT Contact with and (suspected) exposure to infections with a predominantly sexual mode of transmission HENRY SCREENING BILATERAL DIGITAL W CAD W JAMIE Routine 05/01/2024 3:34 PM PAPER GRADER Encounter for screening mammogram for breast cancer PATHOLOGY CYTOLOGY BOOMSWING OPERATOR Routine 05/21/2016 from Last 3 Months or Most Recently Relevant to Health Maintenance Results * BASIC METABOLIC PANEL W/ CALCIUM TOTAL (11/02/2024 12:00 AM CDT) Only the most recent of4 resultswithin the time period is included. Blood Saleem Lebron MD CHEMISTRY ORDERABLES Melissa l Result SCAN * IRON,TRANSFERN,CALC.TIBC,%SAT (10/31/2024 11:12 AM CDT) IRON 85 25 - 156 mcg/dL 10/31/2024 12:37 PM CDT [facility] TRANSFERRIN 235 180 - 382 mg/dL 10/31/2024 12:37 PM CDT [facility] TIBC, CALCULATED 294 265 - 497 mcg/dL 10/31/2024 12:37 PM CDT [facility] % SATURATION * 29 15 - 62 % 10/31/2024 12:37 PM CDT [facility] Blood Venipuncture / Unknown 10/31/2024 11:12 AM CDT 10/31/2024 12:07 PM CDT us Lavonne LONGO CHEMISTRY ORDERABLES Melissa l Result [facility] [address] [place] [address] * (ABNORMAL) CBC WITH AUTO DIFFERENTIAL (10/31/2024 11:12 AM CDT) Only the most recent of3 resultswithin the time period is included. WBC 8.71 4.00 - 12.00 10(3)/mcL 10/31/2024 2:13 PM CDT [facility] RBC 4.31 3.80 - 5.30 10(6)/mcL 10/31/2024 2:13 PM CDT [facility] HEMOGLOBIN (HGB) 13.5 12.0 - 15.8 g/dL 10/31/2024 2:13 PM CDT [facility] HEMATOCRIT (HCT) 39.7 36.0 - 47.0 % 10/31/2024 2:13 PM CDT [facility] MCV 92.1 82.0 - 96.0 fL 10/31/2024 2:13 PM CDT [facility] MCH 31.3 26.0 - 34.0 pg 10/31/2024 2:13 PM CDT [facility] MCHC 34.0 31.0 - 36.0 g/dL 10/31/2024 2:13 PM CDT [facility] PLATELET COUNT 351 140 - 440 10(3)/mcL 10/31/2024 2:13 PM CDT [facility] RDW 14.1 11.8 - 15.5 % 10/31/2024 2:13 PM CDT [facility] MPV 13.2(H) 9.7 - 12.4 fL 10/31/2024 2:13 PM CDT [facility] NEUTROPHILS 69.2 47.0 - 73.0 % 10/31/2024 2:13 PM CDT [facility] LYMPHOCYTES 19.2 18.0 - 42.0 % 10/31/2024 2:13 PM CDT [facility] MONOCYTES 8.7 4.0 - 12.0 % 10/31/2024 2:13 PM CDT [facility] EOSINOPHILS 1.7 0.0 - 5.0 % 10/31/2024 2:13 PM CDT [facility] BASOPHILS 0.7 0.0 - 1.0 % 10/31/2024 2:13 PM CDT [facility] IMMATURE GRANULOCYTE 0.5(H) 0.0 - 0.4 % 10/31/2024 2:13 PM CDT [facility] Comment:Immature Granulocyte s includes Metamyelocytes, Myelocytes, and Promyelocytes. ABSOLUTE NEUTROPHILS 6.03 1.60 - 7.70 10(3)/[facility] 10/31/2024 2:13 PM CDT [facility] ABSOLUTE LYMPHOCYTES 1.67 1.30 - 3.20 10(3)/[facility] 10/31/2024 2:13 PM CDT [facility] ABSOLUTE MONOCYTES 0.76 0.20 - 1.00 10(3)/[facility] 10/31/2024 2:13 PM CDT [facility] ABSOLUTE EOSINOPHIL 0.15 0.00 - 0.40 10(3)/[facility] 10/31/2024 2:13 PM CDT [facility] ABSOLUTE BASOPHILS 0.06 0.00 - 0.10 10(3)/[facility] 10/31/2024 2:13 PM CDT [facility] ABSOLUTE IMMATURE GRANULOCYTE 0.04(H) 0.00 - 0.03 10 (3) mcL. 10/31/2024 2:13 PM CDT [facility] NRBC PER 100 WBC 0 11/01/19 25 2:13 PM CDT [facility] RESULTS ARE CONSISTENT WITH PERIPHERAL SMEAR REVIEW Yes 10/31/2024 2:13 PM CDT [facility] RBC MORPHOLOGY CONSISTENT WITH INDICES Yes 10/31/2024 2:13 PM CDT [facility] Blood Venipuncture / Unknown 10/31/2024 11:12 AM CDT 10/31/2024 12:06 PM CDT Lavonne Ward PAC HEMATOLOGY ORDERABLES Fin al Result [facility] [address] [place] [address] * (ABNORMAL) FERRITIN (10/31/2024 11:12 AM CDT) Only the most recent of2 resultswithin the time period is included. FERRITIN 667(H) 5 - 204 ng/mL 10/31/2024 12:51 PM CDT [facility] Blood Venipuncture / Unknown 10/31/2024 11:12 AM CDT 10/31/2024 12:07 PM CDT Lavonne Ward [facility] CHEMISTRY ORDERABLES Melissa l Result [facility] [address] [place] [address] * THYROID STIMULATING HORMONE (TSH) (10/12/2024 3:54 PM CDT) TSH 2.305 0.300 - 5.000 mIU/L 10/12/2024 5:30 PM CDT [facility] Blood Venipuncture / Unknown 10/12/2024 3:54 PM CDT 10/12/2024 4:48 PM CDT Saleem Lebron MD CHEMISTRY ORDERABLES Melissa l Result Performing Organization Address City/[facility]/ZIP Co de Phone Number [facility] [address] [place] [address] * LIPID PANEL (10/12/2024 3:54 PM CDT) CHOLESTEROL 134 <200 mg/dL 10/12/2024 6:11 PM CDT [facility] TRIGLYCERIDES 66 <150 mg/dL 10/12/2024 6:11 PM CDT [facility] HDL CHOLESTEROL 49 >40 mg/dL 6:11 PM CDT [facility] LDL 72 <130 mg/dL 10/12/2024 6:11 PM CDT [facility] VLDL 13 10 - 50 mg/dL 10/12/2024 6:11 PM CDT [facility] CHOL/HDL RATIO 2.7 0.0 - 4.4 10/12/2024 6:11 PM CDT [facility] NON-HDL CHOLESTEROL 85 <130 mg/dL 10/12/2024 6:11 PM CDT [facility] IS THE PATIENT REQUIRED TO BE FASTING? Yes 10/12/2024 6:11 PM CDT [facility] HAS THE PATIENT BEEN FASTING? Yes 10/12/2024 6:11 PM CDT [facility] Blood Venipuncture / Unknown 10/12/2024 3:54 PM CDT 10/12/2024 4:48 PM CDT Saleem Lebron MD CHEMISTRY ORDERABLES Melissa franco Result [facility] [address] [place] [address] * HEREDITARY HEMOCHROMATOSIS, HFE VARIANT ANALYSIS- [facility] (08/31/2024 2:59 PM CDT) [facility] HFET RESULT SUMMARY, [place] [facility] NEGATIVE 09/06/2024 5:03 PM CDT [facility] HFET RESULT, [facility] SEE NOTE 09/06/2024 5:03 PM CDT [facility] Comment: C282Y: Not detected. H63D: Not detected. HF[facility] INTERPRETATION, [facility] SEE NOTE 09/06/2024 5:03 PM CDT [facility] Comment: This result reduces the risk but [...] ADDITIONAL INFORMATION An online research opportunity called [employer] ([employer]), a project of [employer], is available for the recipient of this genetic test. This patient registry collects de-identified genetic and health information to advance the knowledge of genetic variants. [facility] is a collaborator of [employer]. This may not be applicable for all [...] allogenic donors will interfere with testing. Call [facility] for instructions for testing patients who have [...] developed and its performance characteristics determined by [facility] in a manner consistent with CLIA requirements. This test has not been cleared or approved by the U.S. Food and Drug Administration. HFET SPECIMEN, [facility] WB Whole Blood 09/06/2024 5:03 PM T [facility] HFET METHOD, [facility] SEE NOTE 09/06/2024 5:03 PM T [facility] Comment: Droplet Digital Polymerase Chain Reaction (ddPCR) was used to test for the following three variants in the HFE gene; C282Y, H63D, and S65C. Because of the minimal effect on iron metabolism associated with the S65C variant, it is only reported when it is found with the C282Y variant (i.e. if the patient has the C282Y/S65C genotype). HFET RELEASED BY, [facility] Keri Arceo M.D. 09/06/2024 5:03 PM T [facility] Comment: Test Performed by: [facility] - [address] [address] Framing Consultant: Edgar Fernandes Ph.D.; CLIA# [id number] Blood Venipuncture / Unknown 08/31/2024 2:59 PM CDT 08/31/2024 2:59 PM CDT us Lavonne Ward PAC LAB SEND OUT GENETIC Melissa l Result [facility] US * US ABDOMEN COMPLETE (08/31/2024 [...] thickening or pericholecystic fluid. No positive sonographic [place] sign reported. BILIARY: There is no intrahepatic [...] Electronically signed by Terry Almanza M.D. KT: BIBIANA Report ID: [id number] Reading Location: [id number] Procedure Note Terry Almanza MD - 09/02/2024 [...] thickening or pericholecystic fluid. No positive sonographic [place] sign reported. BILIARY: There is no intrahepatic [...] Electronically signed by Terry Almanza M.D. KT: BIBIANA Report ID: [id number] Reading Location: [id number] IMPRESSION: No acute abnormality. 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 us Lavonne Ward PAC IMG US ORDERABLES Final R esult * HEPATITIS PANEL ACUTE (AHP) (07/13/2024 11:36 AM CDT) HEPATITIS A IGM ANTIBODY NON DETECTED NON DETECTED 07/13/2024 9:19 PM CDT [facility] Comment: IGM Antibodies to HAV not detected. Does not exclude early acute or recovered HAV infection. HEP B CORE AB (IGM) NON DETECTED NON DETECTED 07/13/2024 9:19 PM CDT [facility] Comment:IGM anti-HBC not det ected. Does not exclude the possibility of exposure to or infection with HBV. HEPATITIS B SURFACE ANTIGEN NON DETECTED NON DETECTED 07/13/2024 9:19 PM CDT [facility] Comment:A nonreactive test r esult does [...] 0.18 <1 S/CO 07/13/2024 9:19 PM CDT [facility] Comment: Signal/Cutoff ratio < 0.79 is Nondetected Signal/Cutoff ratio 0.80-0.99 is Grayzone Signal/Cutoff ratio > 0.99 is Detected Supplemental assays are recommended if signal/cutoff ratio is >/=1.00. Signal/cutoff ratio result >/= 5.00 is 97% predictive of positivity for recombinant immunoblot assay (RIBA) and will be reported to the [place] Department of Public Health as required. Blood Venipuncture / Unknown 07/13/2024 11:36 AM CDT 07/13/2024 12:05 PM CDT us Aubree Chen MD HEMATOLOGY ORDERABLES Final Res ult [facility] [address] [facility] [facility] [place] [address], [place] * HENRY SCREENING BILATERAL DIGITAL W CAD W JAMIE (05/01/2024 3:34 PM PAPER GRADER) Anatomical Region Laterality Modality breast Bilateral Mammography 05/01/2024 3:07 PM PAPER GRADER Narrative 05/03/2024 2:04 PM PAPER GRADER - HENRY SCREENING BILATERAL DIGITAL W CAD [...] to exams dated: 12/25/2022, 12[facility]11/2021, [facility] BREAST TISSUE:There are scattered areas of fibroglandular [...] exam. Electronically signed by: Willem granados/june:05/02/2024 16:53:12 Fitness Teacher(s): RT Eloy(R)(M), [facility] letter sent: Normal Exam Reading location: [place] [...] to exams dated: 12/25/2022, 12/11/2021, and 11/27/2020 [facility]. BREAST TISSUE:There are scattered areas of fibroglandular [...] exam. Electronically signed by: Willem granados/june:05/02/2024 16:53:12 Fitness Teacher(s): RT Eloy(R)(M), [facility] letter sent: Normal Exam Reading location: [place] Mammogram BI-RADS: Category 1: Negative us Saleem Lebron MD IMG MAMMO ORDERABLES Melissa l Result * PATHOLOGY CYTOLOGY BOOMSWING OPERATOR (05/21/2016) Specimen of unknown material (specimen) us Mary Thompson APRN PATHOLOGY/CYTOLOGY ORDERABLE S Final Result from Last 3 Months or Most Recently Relevant to Health Maintenance Insurance [facility] Care Teams Implementation Manager Relationship Specialty Start Date End Date Saleem Lebron MD [address] [place] [id number] PCP - General Family Medicine 06/09/23
--- OUTSIDE RECORDS SUMMARY | 2024-11-16 06:02 | XMS_ITS | Encounter Summary ---
Author Organization [facility] Address [address] [place] [address] Phone Care Team Providers Care Locomotive Boilermaker Name Role Phone Saleem Lebron MD Primary Care Provider [phone] Louise Palma APRN, MORTGAGE PROCESSING CLERK Unavailable [phone] Encounter Details Date Type Department Care Team (Late st Contact Info) Description 11/02/2024 Results Follow-Up [facility] - Family Medicine [facility] [address] [place] [address] Saleem Lebron MD #[address] [address] BASIC METABOLIC PANEL W/ CALCIUM TOTAL Social History Tobacco Use Types Packs/Day Years Used Date Smoking Tobacco: Never Smokeless Tobacco: Never Alcohol Use Standard Drinks/Week Comments No 0 (1 standard drink = 0.6 oz pur e alcohol) [facility] Utilities Answer Date Recorded In the past 12 months has Yellow Pages electric, gas, oil, or water company threatened [...] declined 06/05/2024 How often do you attend confucianist or jewish serv ices? Patient declined 06/05/2024 Do you belong to any clubs o r organizations such as confucianist groups, unions, fraternal or athletic groups, or [...] Total Score - Questions 1-9 0 05/20 [facility] - [...] place to sleep or slept in a nursing home (including now)? No 07/18/2023 Overall Financial [...] were you homeless or living in a nursing home (including now)? No 10/10/2024 Education Answer Date Recorded What is the highest level of school you have completed or the highest degree you have received? 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, ENVIRONMENTAL COMPLIANCE SPECIALIST, SILVIA) 12/22/2022 Sexually Active Control Partners [...] Office Visit [facility] [place] [phone] Ayde Cleaning, SENIOR SCRUM MASTER, MORTGAGE PROCESSING CLERK [address] [place] [phone] 12/11/2024 3:00 PM CDT Lab [facility] [address] [place] [address] Louis Menjivar MD [address] [place] [address] WardLavonne September, PAC [address] [place] [address] Discharge Disposition: Discharged to home or Selfcare 12/14/2024 3:00 PM CDT Clinical Support [facility] [address] [place] [address] WardLavonne taylor September, PAC [address] [place] [address] Discharge Disposition: Discharged to home or Selfcare 01/08/2025 3:20 PM CDT Lab [facility] [address] [place] [address] WardLavonne taylor September, PAC [address] [place] [address] Discharge Disposition: Discharged to home or Selfcare 01/11/2025 3:00 PM CDT Clinical Support [facility] [address] [place] [address] WardLavonne September, PAC [address] [place] [address] Discharge Disposition: Discharged to home or Selfcare 02/06/2025 2:45 PM CDT Office Visit [facility] - Family [facility] #2 [place] [phone] Saleem Lebron MD #2 [facility] [address] [place] [address] 02/12/2025 3:00 PM CD[facility] [address] [place] [phone] WardLavonne September, PAC [address] [place] [address] Discharge Disposition: Discharged to home or Selfcare 02/15/2025 2:40 PM CDT Office Visit [facility] [address] [place] [phone] WardScottLavonne September, PAC [address] [place] [address] Discharge Disposition: Discharged to home or Selfcare 02/15/2025 3:00 PM CDT Clinical Support [facility] [address] [place] [address] Ward Lavonne September, PAC [address] [place] [address] Discharge Disposition: Discharged to home or Selfcare documented as of this encounter Visit Diagnoses Not on filedocumented in this encounter Additional Health Concerns Assessment Noted Time PHQ-9 Depression Total Score: 0 06/06/19 25 3:09 PM THREAD ROLLER documented as of this encounter Care Teams Locomotive Boilermaker Relationship Specialty Start Date End Date Saleem Lebron MD #2 [facility] [address] [place] [address] PCP - General Family Medicine 06/09/23 Louise Palma, SENIOR SCRUM MASTER, MORTGAGE PROCESSING CLERK #2 [facility] [address] [address] Nurse Practitioner Cardiology 06/17/23 11/06/24 documented as of this encounter
--- OUTSIDE RECORDS SUMMARY | 2024-11-16 06:02 | XMS_ITS | Encounter Summary ---
Author Organization [facility] Address [address] [place] [address] Phone Care Team Providers Care Instructor Apparel Manufacture Name Role Phone Saleem Lebron MD Primary Care Provider [phone] Reason for Visit * Reason Onset Date Comments Medication Refill 11/15/2024 Encounter Details Date Type Department Care Team (Late st Contact Info) Description 11/15/2024 Refill [facility] - Cardiology - [place] [address] [place] [address] Ayde Cleaning APRN, LAW FIRM ADMINISTRATOR [address] [place] [address] Medication Refill Social History Tobacco Use Types Packs/Day Years Used Date Smoking Tobacco: Never Smokeless Tobacco: Never Alcohol Use Standard Drinks/Week Comments No 0 (1 standard drink = 0.6 oz pur e alcohol) [facility] Utilities Answer Date Recorded In the [...] declined 06/05/2024 How often do you attend lutheran or confucianism serv ices? Patient declined 06/05/2024 Do you belong to any clubs o r organizations such as lutheran groups, unions, fraternal or athletic groups, or [...] Total Score - Questions 1-9 0 05/20 [facility] [...] any time in the past 12 m [facility], were you homeless or living in a senior living (including now)? No 10/10/2024 Education Answer Date Recorded What is the highest level of school you have completed or the highest degree you have received? 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, LITHOGRAPHER HELPER, SILVIA) 12/22/2022 Sexually Active Control Partners Comments Yes Post-menopausal Male Comments No Sex and Gender Information Value Date Recorded Sex Assigned at Not on file Legal Sex Female 9:02 PM CDT Gender Identity Not on file Sexual Orientation Not on file documented as of this encounter Miscellaneous Notes * Telephone Encounter - Kim Cross CMA - 11/15/2024 8:14 AM CDT refills documented in this encounter Plan of Treatment Upcoming Encounters Date Type Department Care Team (Late st Contact Info) Description 11/24/2024 2:30 PM CDT [facility] - Cardiology [facility] #[address] [place] [address] Ayde Cleaning APRN, LAW FIRM ADMINISTRATOR [address] [place] [address] 12/11/2024 3:00 PM CDT Lab [facility] [address] [place] [phone] Louis Menjivar MD [address] [place] [address] Lavonne Ward Nancy, PAC [address] [place] [address] Discharge Disposition: Discharged to home or Selfcare 12/14/2024 3:00 PM CDT Clinical Support [facility] [address] [place] [address] Lavonne Ward September, PAC [address] [place] [address] Discharge Disposition: Discharged to home or Selfcare 01/08/2025 3:20 PM CDT Lab [facility] [address] [place] [address] Lavonne Ward Nancy, PAC [address] [place] [address] Discharge Disposition: Discharged to home or Selfcare 01/11/2025 3:00 PM CDT Clinical Support [facility] [address] [place] [address] Lavonne Ward Nancy, PAC [address] [place] [address] Discharge Disposition: Discharged to home or Selfcare 02/06/2025 2:45 PM CDT Office Visit [facility] Medical [facility] - Family [facility] [address] [place] [address] Saleem Lebron MD #[address] [place] [address] 02/12/2025 3:00 PM CDT [facility] [address] [place] [address] Lavonne Ward September, PAC [address] [facility] [place] [address] Discharge Disposition: Discharged to home or Selfcare 02/15/2025 2:40 PM CDT Office Visit [facility] [address] [facility] [place] [address] Lavonne Ward September, PAC [address] [place] [facility] [facility] [place] [address] Discharge Disposition: Discharged to home or Selfcare 02/15/2025 3:00 PM CDT Clinical Support [facility] [address] [facility] [address] Lavonne Ward September, PAC [address] [facility] [place] [address] Discharge Disposition: Discharged to home or Selfcare documented as of this encounter Visit Diagnoses Diagnosis Primary hypertension Unspecified essential hypertension documented in this encounter Additional Health Concerns Assessment Noted Time PHQ-9 Depression Total Score: 0 06/06/19 25 3:09 PM COMPLETION ENGINEER documented as of this encounter Care Teams Instructor Apparel Manufacture Relationship Specialty Start Date End Date Saleem Lebron MD #[address] [place] [address] PCP - General Family Medicine 06/09/23 documented as of this encounter
--- OUTSIDE RECORDS SUMMARY | 2024-11-16 06:02 | XMS_ITS | Referral Summary ---
Author Organization [facility] Address [address] [place] [address] Care Team Providers Care Armature Coil Winder Name Role Phone Yosi Lebron MD Primary Care Provider [phone] Encounters Date Type Department Care Team Description 10/08/2024 9:39 PM CDT - 10/09/2024 1:06 AM CDT Emergency [facility] Emergency Department [address] [place] [address] aBssam Gabriel MD Chest pain, unspecified type (Primary [...] on file Legal Sex Female 7:33 PM INJECTION MACHINE OPERATOR Gender Identity Not on file Sexual Orientation [...] HEPATITIS C AB Routine 05/29/2014 5:00 AM INJECTION MACHINE OPERATOR from Last 3 Months or Most Recently Relevant to Health Maintenance Results * Magnesium (10/08/2024 10:53 PM CDT) Magnesium 1.9 1.4 - 2.5 mg/dL Blood 10/08/2024 10:5 3 PM CDT 10/09/2024 12:21 AM CDT us Bassam Gabriel MD LAB BLOOD ORDERABLE S Final Result [facility] ([place]) 1 [facility] [place] [address] * XR Chest 1 View (10/08/2024 10:37 [...] Electronically signed by Terry Granado M.D. KH: GERGORIA Report ID: [id number] Reading Location: [place] [address] Procedure Note Terry Granado MD - 10/08/2024 [...] Terry Granado M.D. KH: GREGORIA Report ID: [id number] Reading Location: [place] [address] us Bassam Gabriel MD IMG XR PROCEDURES [...] BLOOD ORDERABLE S Final Result [facility] [place]) 2 [facility] Department [place] [address] * eGFR (10/08/2024 9:43 PM [...] BLOOD ORDERABLE S Final Result [facility] ([place]) 1 [facility] Department [place] [address] * (ABNORMAL) Differential, auto (10/08/2024 9:43 PM [...] S Final Result [facility] ([place]) 1 [facility] Department [place] [address] * (ABNORMAL) CBC with auto differential (10/08/2024 [...] ([place]) MCHC 35.1 32.3 - 35.7 g/dL [facility] ([place]) RDW CV 13.3 11.1 - 14.9 % [facility] ([place]) RDW SD 43.2 35.7 - 48.1 fL [facility] ([place]) NRBC abs 0.00 0.00 - 0.01 K/cumm [facility] ([place]) Blood 10/08/2024 9:43 PM CDT 10/08/2024 9:46 PM CDT us Bassam Gabriel MD LAB BLOOD ORDERABLE S Final Result [facility] ([place]) 1 [facility] Department [place] [address] * (ABNORMAL) Comprehensive metabolic panel (10/08/2024 9:43 PM CDT) Sodium 125(L) 135 - 145 mmol/L Potassium, pl 3.1(L) 3.3 - 4.9 mmol/L [facility] ([place]) Chloride 83(L) 97 - 110 mmol/L [facility] ([place]) CO2 26 22 - 32 mmol/L [facility] ([place]) Anion gap 17(H) 2 - 15 mmol/L [facility] ([place]) BUN 8 6 - 25 mg/dL [facility] ([place]) Creatinine 0.63 0.60 - 1.10 mg/dL [facility] ([place]) Comment:Icteric sample, test results may be affected. Glucose 105 70 - 199 mg/dL [facility] ([place]) Comment: Interpretive Data Fasting glucose >/= [...] ORDERABLE S Final Result Performing Organization Address [facility] de Phone Number [facility] ([place]) 1 [facility] Department [place] [address] * ECG 12 lead (10/08/2024 9:38 PM CDT) 10/08/2024 9:38 PM CDT Narrative [facility] - 10/09/2024 7:29 AM CDT Vent Rate: 67 bpm RR Interval: 885 msec AK Interval: 171 msec QRS Duration: 102 msec QT Interval: 385 msec QTC Interval: 401 msec P-R-T [place]: 12 - 15 - 6 degrees IMPRESSION: Baseline artifact SINUS RHYTHM NORMAL ECG Electronically Signed By: Josse Jeff MD us Bassam Gabriel MD ECG ORDERABLES Fin al Result Performing Organization Address [facility] Co de Phone Number [employer] [facility] * Serum Hepatitis C ab (05/29/2014 5:00 AM INJECTION MACHINE OPERATOR) HCV ab Negative NEG HISTORICAL RESULTS Serum 05/29/2014 5:00 AM INJECTION MACHINE OPERATOR Narrative HISTORICAL RESULTS - 05/30/2014 4:23 AM INJECTION MACHINE OPERATOR {Testing performed by: [facility], [place] [address]} Interpretive Data If confirmation is required, call Laboratory Customer Service to request sample to be sent to [facility] for Hepatitis C Virus (HCV) RNA Detection and Quantitation by Real-Time Reverse Steam Press Operator-PCR (RT-PCR). Current interpretive data was last revised on 2011 us Dacia Doyle MD LAB BLOOD ORDERABLES Final R esult HISTORICAL RESULTS from Last 3 Months or Most Recently Relevant to Health Maintenance Insurance [facility] CHOICE PLUS Care Teams Armature Coil Winder Relationship Specialty Start Date End Date Yosi Lebron MD [address] [place] [address] PCP - General Pulmonary Disease 10/08/24
[2024-11-16] MEDS: ACETAMINOPHEN 500 MG TABLET 1000 MG PO (06:18)
[2024-11-16] MEDS: LACTATED RINGERS 1,000 ML 30 ML IV CONT ×2 (06:40→09:47)
--- NOTE | 2024-11-16 06:47 | P.HPUP_ITS ---
History and Physical Update Update Date/Time: 11/16/24 06:47 Patient seen and examined in pre-operative holding area. No interval change in medical history or symptoms. Patient remembers previous discussion of benefits and alternatives to procedure. Continues to desire to proceed with bilateral breast reduction. I reviewed the risks including but not limited to bleeding ,infection, asymmetry, undesireable cosmetic appearance, partial/total skin/nipple loss, no change or worsening of symptoms, change in sensation. I discussed the possible use of assistants and their level of participation in the case. Patient stated understanding and signed the consent form wishing to pr oceed
--- NOTE | 2024-11-16 06:48 | W.PM.PROC2 ---
Procedure Note - Detailed Date of Procedure 11/16/24 Pre-op Diagnosis Breast Hypertrophy Post-op Diagnosis Same Procedure Performed b/l breast reduction Surgeon Chester Jara MD Water Pumper ashlie hutchins pa-c Anesthesia General Description of Procedure Patient was seen in the preoperative holding area where the consent form was signed in the breasts were marked for an inferior pedicle Lew pattern reduction. Patient was taken back to the operating room and placed on the table in the supine position. Time-out was performed with Anesthesia, surgeon, and staff agreeing on patient's name, site, and surgery to be performed. SCDs were placed on the lower extremities and inflated. Antibiotics were given IV. After general anesthesia was administered the breasts were prepped and draped in the usual sterile fashion. I turned my attention to the right breast where I used a saline moistened lap pad and Benjamin clamp to create a breast tourniquet. 38 mm nipple Sizer was used to circumscribe the nipple-areolar complex. I proceeded with de epithelializing a 7 cm wide inferior pedicle. I made my other skin incisions and then proceeded with using Bovie cautery to elevate the superior skin flaps and compressed plane down to the chest wall. I proceeded with resection of 383g of tissue from the right breast. I irrigated with normal saline and hemostasis with Bovie cautery. I plicated the pedicle with 2-0 Vicryl suture. 2-0 Prolene was used to secure the T-junction. 3-0 Vicryl was used for dermClosure. The nipple was brought out 5.5 cm above the inframammary fold at the most prominent portion of the breast at the breast midline and secured with 3-0 Vicryl suture. 4-0 Monocryl was used for subcuticular closure. Next I took my attention to the left breast where the same procedure was performed.I used a saline moistened lap pad and Benjamin clamp to create a breast tourniquet. 38 mm nipple Sizer was used to circumscribe the nipple-areolar complex. I proceeded with de epithelializing a 7 cm wide inferior pedicle. I made my other skin incisions and then proceeded with using Bovie cautery to elevate the superior skin flaps and compressed plane down to the chest wall. I proceeded with resection of 400 g of tissue from the left breast. This appeared relatively symmetric to the reduced right breast. I irrigated with normal saline and hemostasis with Bovie cautery. I plicated the pedicle with 2-0 Vicryl suture. 2-0 Prolene was used to secure the T-junction. 3-0 Vicryl was used for dermClosure. The nipple was brought out 5.5 cm above the inframammary fold at the most prominent portion of the breast at the breast midline and secured with 3-0 Vicryl suture. 4-0 Monocryl was used for subcuticular closure. Both nipples and skin flaps appeared viable with good cap refill. There was good symmetry to the breast. I injected 20 cc of 1% lidocaine with epinephrine and 0.5% Marcaine plain along the inframammary fold and anterior axillary line of each breast. A dressing of Mastisol, Steri-Strips, 4 x 4, ABDs and a breast binder was then applied. The patient was awakened from anesthesia and transferred to the recovery room in stable condition. Complications: None Estimated blood loss: 30 cc Disposition: Patient tolerated the procedure well and will go home later today ashlie hutchins pa-c was essential for positioning, retraction, closure and dressing placement [facility] [place] Surgery - Charge Forward: Surgery Billing ([id number] same for ashlie adding )
--- NOTE | 2024-11-16 07:00 | P.PNAN_ITS ---
Anes - Initial Pre Proc Eval Procedure: Operation Date: 11/16/24 07:30 Proposed Procedures p Bilateral Breast Reduction Mammoplasty - Chester Jara MD Date/Time: 11/16/24 07:00 Surgeon: Chester Jara MD Pre Op Diagnosis: Breast Hypertrophy Patient Data Age: 49 Gender: F Height: 1.7 m Weight: 83.3 kg Last Vital Signs Temp 98.7 F 11/16/24 06:15 Pulse 64 11/16/24 06:15 Resp 16 11/16/24 06:15 BP 104/71 11/16/24 06:15 Pulse Ox 100 11/16/24 06:15 O2 Del Method Room Air 11/16/24 06:15 Allergies Allergy/AdvReac Type Severity Reaction Status Date / Time No Known Allergies Allergy Verified 11/16/24 06:14 Home Medications ?Medication ?Instructions ?Recorded ?Confirmed ?Type celecoxib 200 mg capsule 200 mg PO DAILY 12/30/20 11/16/24 History tramadol 50 mg tablet 50 mg PO Q8H PRN pain #20 tabs 02/13/23 11/16/24 Rx hydrochlorothiazide 12.5 mg capsule 12.5 mg PO DAILY 12/22/23 11/16/24 History metoprolol succinate 50 mg 50 mg PO DAILY 12/22/23 11/16/24 History tablet,extended release 24 hr amlodipine 5 mg tablet 5 mg PO DAILY 07/12/24 11/16/24 History calcium carbonate 600 mg PO DAILY 07/12/24 11/16/24 History cetirizine 10 mg capsule (Zyrtec) 10 mg PO DAILY 07/12/24 11/16/24 History risedronate 35 mg tablet 35 mg PO WEEKLY 07/12/24 11/16/24 History alprazolam 0.25 mg tablet 0.25 mg PO DAILY PRN anxiety 10/31/24 11/16/24 History ECG: st depression. dr barbara fuentes with that Patient hx anesthesia problems: none Family hx anesthesia problems: none Results Review: All pre-operative results and documents have been reviewed as part of the pre- operative evaluation. [facility] Past Medical History Medical History Arthritis DDD (degenerative disc disease) Inflammatory arthritis Arthritis Allergies ACL tear Surgical History Surgical History History of repair of anterior cruciate ligament of right knee H/O breast biopsy H/O breast surgery H/O colposcopy with cervical biopsy 10/24/2020, 11/09/2019- benign, 09/09/2016 ECC benign - BX tissue did not survive 12/29/2010 squamous atypia, 06/06/2009- benign History of repair of ACL Family History Family History Other Family history of arthritis Hypertension Social History Social History Smoking status: Never smoker Second hand tobacco smoke exposure: Yes Alcohol intake: current Drinks per week: 1 Substance use: never Substance use type: does not use Current Housing: Decline to Answer Concerned About Future Housing: Decline to Answer Difficulty Paying Gas/Electric Bills: Decline to Answer Difficulty Paying for Meds: Decline to Answer Currently Unemployed: Decline to Answer Education: Decline to Answer Difficulty w/ Childcare or Family Care: Decline to Answer Living arrangements: with family 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/Education: 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 Informed Consent: The patient's anesthetic plan and its attendant risks and benefits were discussed with the patient/family/POA. Questions were solicited and answers provided to the satisfaction of the patient/family/POA.
[2024-11-16] MEDS: ceFAZolin SODIUM 2 GM/20 ML SW SYRINGE IV PUSH (07:24)
[2024-11-16] MEDS: LIDO 1%/EPINEPHRINE 1:100,000 20 ML VIAL INFILTRATE (08:28)
[2024-11-16] MEDS: BUPivacaine HCL 0.5% 10 ML AMP INFILTRATE (08:29)
--- NOTE | 2024-11-16 09:39 | WPDANESPN ---
Anes - Prog Note Post-Op Date/Time: 11/16/24 09:39 Vital Signs: Last Vital Signs Temp 98.7 F 11/16/24 06:15 Pulse 64 11/16/24 06:15 Resp 16 11/16/24 06:15 BP 104/71 11/16/24 06:15 Pulse Ox 100 11/16/24 06:15 O2 Del Method Room Air 11/16/24 06:15 Pain Score (VAS): 4 Patient Feedback: Patient satisfied with anesthetic care.
[2024-11-16] MEDS: fentaNYL CITRATE INJ (*CRX) 100 MCG/2 ML VIAL 25 MCG IV PUSH ×3 (09:53→10:24)
[2024-11-16] MEDS: oxyCODONE HCL (*CRX) 5 MG TAB IR PO (10:51)
== END 2024-11-16 11:25 | disposition home or self-care (01) ==
LOC: ASC 06:00
PROVIDERS: PCP Family Medicine; Visit Provider Plastic Surgery
PROC: 0HBV0ZZ Excision of Bilateral Breast, Open Approach (ICD-10-PCS; CPT 19318; principal; 2024-11-16 07:30)
DX: N62 Hypertrophy of breast (principal)
CPT/HCPCS: 19318

== ENCOUNTER 2024-11-16 15:35 | Outpatient (NON) | payer OTHER, SELFPAY ==
--- NOTE | 2024-11-16 | S_PTH ---
PATIENT: Savanah Wolff [id number] AGE/SX: 49/F ROOM: RE11/16/[address]: Chester Jara MD : 1975 BED: DIS: 11/16/2024 SPEC #: [id number] RECD: 11/17/24 07:07 STATUS: ANNIE REDebbie #: [id number] GUTIERREZ: 11/16/24 00:[address]: Chester Jara DEPT: [facility] Surgical RECD BY: Janina Vincent ENTERED: 11/17/24 07:08 SP TYPE: Surgical OTHR DR: Saleem Lebron, Tissues: A - Breast Tissue B - Breast Tissue C - Cyst Procedures: Hematoxylin and Eosin Stain Gross and Microscopic Level 4
--- OUTSIDE RECORDS SUMMARY | 2024-11-16 15:39 | XMS_ITS | Referral Summary ---
Author Organization [facility] Address [address] [place] [address] Care Team Providers Care Laborer Concrete Paving Name Role Phone Yosi Lebron MD Primary Care Provider [phone] Encounters Date Type Department Care Team Description 10/08/2024 9:39 PM CDT - 10/09/2024 1:06 AM CDT Emergency [facility] Emergency Department [address] [place] [id number] Bassam Gabriel MD Chest pain, unspecified type [...] on file Legal Sex Female 7:33 PM BUDGET COORDINATOR Gender Identity Not on file Sexual Orientation [...] HEPATITIS C AB Routine 05/29/2014 5:00 AM BUDGET COORDINATOR from Last 3 Months or Most Recently Relevant to Health Maintenance Results * Magnesium (10/08/2024 10:53 PM CDT) Magnesium 1.9 1.4 - 2.5 mg/dL Blood 10/08/2024 10:5 3 PM CDT 10/09/2024 12:21 AM CDT us Bassam Gabriel MD LAB BLOOD ORDERABLE S Final Result JAVAD [place] ([place]) 1 [facility] [place] [address] * XR Chest 1 View (10/08/2024 10:37 [...] Terry Granado M.D. KH: [place] Report ID: [id number] Reading Location: [place] [address] Procedure Note Terry Granado MD - 10/08/2024 [...] Terry Granado M.D. KH: [place] Report ID: [id number] Reading Location: [place] [address] us Bassam Gabriel MD IMG XR PROCEDURES [...] BLOOD ORDERABLE S Final Result [facility] ESTELL [place]) 3 [facility] Department [place] [address] * eGFR (10/08/2024 9:43 PM [...] PM CDT 10/08/2024 9:46 PM CDT us Bsasam Gabriel MD LAB BLOOD ORDERABLE S Final Result JAVAD [place] (ESTE[place]) 1 [facility] Department [place] [address] * (ABNORMAL) Differential, auto (10/08/2024 9:43 PM [...] S Final Result [facility] ([place]) 1 [facility] Department [place] [address] * (ABNORMAL) CBC with auto differential (10/08/2024 [...] MCHC 35.1 32.3 - 35.7 g/dL [facility] ([place]) RDW CV 13.3 11.1 - 14.9 % [facility] ([place]) RDW SD 43.2 35.7 - 48.[address] [facility] ([place]) NRBC abs 0.00 0.00 - 0.01 K/cumm [facility] ([place]) Blood 10/08/2024 9:43 PM CDT 10/08/2024 9:46 PM CDT us Bassam Gabriel MD LAB BLOOD ORDERABLE S Final Result [facility] ([place]) 1 [facility] Department [place] [address] * (ABNORMAL) Comprehensive metabolic panel (10/08/2024 9:43 PM CDT) Sodium 125(L) 135 - 145 mmol/L Potassium, pl 3.1(L) 3.3 - 4.9 mmol/L [facility] ([place]) Chloride 83(L) 97 - 110 mmol/L [facility] ([place]) CO2 26 22 - 32 mmol/L [facility] ([place]) Anion gap 17(H) 2 - 15 mmol/L [facility] ([place]) BUN 8 6 - 25 mg/dL [facility] ([place]) Creatinine 0.63 0.60 - 1.10 mg/dL [facility] ([place]) Comment:Icteric sample, test results may be affected. Glucose 105 70 - 199 mg/dL [facility] ([place]) Comment: Interpretive Data Fasting glucose >/= [...] ORDERABLE S Final Result Performing Organization Address [facility] de Phone Number [facility] ([place]) 1 [facility] Department [place] [address] * ECG 12 lead (10/08/2024 9:38 PM CDT) 10/08/2024 9:38 PM CDT Narrative [facility] - 10/09/2024 7:29 AM CDT Vent Rate: 67 bpm RR Interval: 885 msec DE Interval: 171 msec QRS Duration: 102 msec QT Interval: 385 msec QTC Interval: 401 msec P-R-T [place]: 12 - 15 - 6 degrees IMPRESSION: Baseline artifact SINUS RHYTHM NORMAL ECG Electronically Signed By: Josse Jeff MD us Bassam Gabriel MD ECG ORDERABLES Fin al Result Performing Organization Address [facility] Co de Phone Number [employer] [facility] * Serum Hepatitis C ab (05/29/2014 5:00 AM BUDGET COORDINATOR) HCV ab Negative NEG HISTORICAL RESULTS Serum 05/29/2014 5:00 AM BUDGET COORDINATOR Narrative HISTORICAL RESULTS - 05/30/2014 4:23 AM BUDGET COORDINATOR {Testing performed by: [facility], [place] [address]} Interpretive Data If confirmation is required, call Laboratory Customer Service to request sample to be sent to [facility] for Hepatitis C Virus (HCV) RNA Detection and Quantitation by Real-Time Reverse Chief Business Officer-PCR (RT-PCR). Current interpretive data was last revised on 2011 us Dacia Doyle MD LAB BLOOD ORDERABLES Final R esult HISTORICAL RESULTS from Last 3 Months or Most Recently Relevant to Health Maintenance Insurance [facility] CHOICE [facility]US [facility] HMO/PPO Address: [facility] [address] [place] [address] Care Teams Laborer Concrete Paving Relationship Specialty Start Date End Date Yosi Lebron MD [address] [place] [address] PCP - General Pulmonary Disease 10/08/24
--- OUTSIDE RECORDS SUMMARY | 2024-11-16 15:39 | XMS_ITS | Encounter Summary ---
Author Organization [facility] Address [address] [place] [address] Phone Care Team Providers Care Excavator Operator Name Role Phone Saleem Lebron MD Primary Care Provider [phone] Louise Palma APRN, [employer] FRYER Unavailable [phone] Encounter Details Date Type Department Care Team (Late st Contact Info) Description 10/22/2024 Results Follow-Up [facility] - Family Medicine [facility] [address] [place] [address] Saleem Lebron MD [address] [address] BASIC METABOLIC PANEL W/ CALCIUM TOTAL, BASIC METABOLIC PANEL W/ CALCIUM TOTAL, THYROID STIMULATING HORMONE (TSH), LIPID PANEL Social History Tobacco Use Types Packs/Day Years Used Date Smoking Tobacco: Never Smokeless Tobacco: Never Alcohol Use Standard Drinks/Week Comments No 0 (1 standard drink = 0.6 oz pur e alcohol) [facility] Utilities Answer Date Recorded In the past 12 months has [employer], gas, oil, or water company threatened to [...] How often do you attend gnosticist or roman catholic serv ices? Patient declined 06/05/2024 Do you [...] Total Score - Questions 1-9 0 05/20 [facility] - Occupational Stress [...] place to sleep or slept in a halfway (including now)? No 07/18/2023 Overall Financial Resource [...] were you homeless or living in a halfway (including now)? No 10/10/2024 Education Answer Date Recorded What is the highest level of school you have completed or the highest degree you have received? 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, HAZARDOUS WASTE MANAGEMENT SPECIALIST, SILVIA) 12/22/2022 Sexually Active Control Partners [...] [facility] - Cardiology [address] [place] [address] Ayde Cleaning APRN, [employer] FRYER [address] [place] [address] 12/11/2024 3:00 PM CDT Lab [facility] [address] [place] [phone] Louis Menjivar MD [address] [place] [address] Lavonne Ward September, PAC [address] [place] [address] Discharge Disposition: Discharged to home or Selfcare 12/14/2024 3:00 PM CDT Clinical Support [facility] [address] [place] [phone] Lavonne Ward September, PAC [address] [place] [address] Discharge Disposition: Discharged to home or Selfcare 01/08/2025 3:20 PM CDT Lab [facility] [address] [place] [phone] Lavonne Ward September, PAC [address] [place] [address] Discharge Disposition: Discharged to home or Selfcare 01/11/2025 3:00 PM CDT Clinical Support [facility] [address] [place] [address] Lavonne Ward September, PAC [address] [place] [address] Discharge Disposition: Discharged to home or Selfcare 02/06/2025 2:45 PM CDT Office Visit [facility] Medical Group - Family [facility] [address] [place] [address] Saleem Lebron MD [address] [address] 02/12/2025 3:00 PM CDT [facility] [address] [place] [address] Lavonne Ward Nancy, PAC [address] [place] [address] Discharge Disposition: Discharged to home or Selfcare 02/15/2025 2:40 PM CDT Office Visit [facility] [address] [place] [address] Lavonne Ward Nancy, PAC [address] [place] [address] Discharge Disposition: Discharged to home or Selfcare 02/15/2025 3:00 PM CDT Clinical Support [facility] [address] [place] [address] Lavonne Ward Nancy, PAC [address] [place] [address] Discharge Disposition: Discharged to home or Selfcare documented as of this encounter Results * BASIC METABOLIC PANEL W/ CALCIUM TOTAL (10/24/2024 10:20 AM CDT) SODIUM 138 136 - 145 mmol/L 10/24/2024 11:43 AM CDT [facility] POTASSIUM 3.7 3.5 - 5.1 mmol/L 10/24/2024 11:43 AM CDT [facility] CHLORIDE 102 98 - 107 mmol/L 10/24/2024 11:43 AM CDT [facility] CO2, VENOUS 29 22 - 30 mmol/L 10/24/2024 11:43 AM CDT [facility] ANION GAP 10.7 <18.0 mmol/L 10/24/2024 11:43 AM CDT [facility] GLUCOSE 96 70 - 99 mg/dL 10/24/2024 11:43 AM CDT [facility] BUN 10 10 - 20 mg/dL 10/24/2024 11:43 AM CDT [facility] CREATININE, BLOOD 0.69 0.60 - 1.00 mg/dL 10/24/2024 11:43 AM CDT [facility] BUN/CREATININE RATIO 14 12 - 20 ratio 10/24/2024 11:43 AM CDT [facility] CALCIUM 9.2 8.7 - 10.5 mg/dL 10/24/2024 11:43 AM CDT [facility] IS THE PATIENT REQUIRED TO BE FASTING? No 10/24/2024 11:43 AM CDT [facility] GFR, ESTIMATED >60 >=60 10/24/2024 11:43 AM CDT [facility] Comment: Creatinine Clearance is the preferred criteria for selecting drug dose adjustments in renally impaired patients. The GFR is provided as additional pertinent clinical information. GFR is reported in mL/min/1.73 sq m. Calculation based on the Chronic Kidney Disease Epidemiology Collaboration (CKD- EPI) equation refit without adjustment for race. GFR, EST. >60 >=60 025 11:43 AM CDT [facility] GFR, EST. NONAFRICAN >60 >=60 10/24/2024 11:43 AM CDT [facility] Blood Venipuncture / Unknown 10/24/2024 10:20 AM CDT 10/24/2024 10:56 AM CDT us Saleem Lebron MD CHEMISTRY ORDERABLES Melissa l Result [facility] [address] [place] [address] documented in this encounter Visit Diagnoses Diagnosis Hypokalemia- Primary Hypopotassemia documented in this encounter Additional Health Concerns Assessment Noted Time PHQ-9 Depression Total Score: 0 06/06/19 25 3:09 PM LAWN SERVICE MANAGER documented as of this encounter Care Teams Excavator Operator Relationship Specialty Start Date End Date Slaeem Lebron MD [address] [address] [place] [address] PCP - General Family Medicine 06/09/23 Louise Palma APRN, P[employer] CHIP FRYER [address] [facility], [address] [place] [address] Nurse Practitioner Cardiology 06/17/23 11/06/24 documented as of this encounter
--- OUTSIDE RECORDS SUMMARY | 2024-11-16 15:39 | XMS_ITS | Clinical Summary ---
Author Organization [facility] Address [address] [place] [address] Phone Care Team Providers Care Volunteer Services Supervisor Name Role Phone Saleem Lebron MD Primary Care Provider [phone] Allergies Active Allergy Reactions Criticality Noted Date [...] Type Department Care Team Description 11/15/2024 Refill [facility] - [place] [address] [place] [address] Ayde Cleaning APRN, ISHMAEL Medication Refill 11/10/2024 Refill [facility] [place] [address] Ayde Cleaning APRN, REHABILITATION COUNSELOR Medication Refill 11/09/2024 1:30 PM CDT Clinical Support [facility] Oncology Services [address] [place] [address] Lavonne Ward, PAC Elevated ferritin (Primary Dx) Discharge Disposition: Discharged to home or Selfcare 11/09/2024 Travel 11/07/2024 9:00 AM CDT Office Visit [facility] Oncology Services [address] [place] [address] Lavonne Ward, PAC Elevated ferritin (Primary Dx); Iron deficiency anemia, unspecified iron deficiency anemia type Discharge Disposition: Discharged to home or Selfcare 11/07/2024 Refill [facility] - [place] [address] [place] [address] Ayde Cleaning APRN, ISHMAEL Medication Refill 11/07/2024 Travel 11/02/2024 MyChart RX Renewal [facility] Family Medicine - [place] [address] [place] [address] Saleem Lebron MD Medication Renewal Reviewed 11/02/2024 Refill [facility] Card[facility] - [place] [address] [place] [address] Ayde Cleaning APRN, ISHMAEL Medication Refill 11/02/2024 Results Follow-Up [facility] [address] [place] [address] Saleem Lebron MD BASIC METABOLIC PANEL W/ CALCIUM TOTAL 10/31/2024 Results Follow-Up [facility] Oncology Services [address] [place] [address] WardLavonne taylor September, PAC FERRITIN, IRON,TRANSFERN,CALC.TI BC,%SAT, CBC WITH AUTO DIFFERENTIAL 10/31/2024 Travel 10/31/2024 Telephone [facility] Oncology Services [address] [place] [address] Lavonne Ward September, PAC 10/24/2024 Travel 10/22/2024 Results Follow-Up [facility] [address] [place] [address] Saleem Lebron MD BASIC METABOLIC PANEL W/ CALCIUM TOTAL, BASIC METABOLIC PANEL W/ CALCIUM TOTAL, THYROID STIMULATING HORMONE (TSH), LIPID PANEL 10/16/2024 Results Follow-Up [facility] [address] [place] [address] Saleem Lebron MD CBC WITH AUTO DIFFERENTIAL 10/13/2024 Travel 10/12/2024 3:55 PM CDT Lab [facility] Laboratory Services [address] [place] [address] Saleem Lebron MD Hypokalemia; Anxiety; Hyperlipidemia, unspecified hyperlipidemia type Discharge Disposition: Discharged to home or Selfcare 10/12/2024 3:15 PM CDT Office Visit [facility] [address] [place] [address] Saleem Lebron MD Anxiety (Primary Dx); Primary hypertension; Hypokalemia; Hyperlipidemia, unspecified hyperlipidemia type; Leukocytosis, unspecified type Discharge Disposition: Discharged to home or Selfcare 10/10/2024 1:00 PM CDT Clinical Support [facility] [address] [place] [address] [facility] [place] Blood pressure check (Primary Dx) Discharge Disposition: Discharged to home or Selfcare 10/09/2024 Telephone [facility] [address] [place] [address] Saleem Lebron MD Appointment 10/09/2024 Travel 08/31/2024 2:50 PM CDT Lab [facility] Oncology Services [address] [place] [address] Lavonne Ward, PAC Elevated ferritin Discharge Disposition: Discharged to home or Selfcare 08/31/2024 6:59 AM CDT - 08/31/2024 11:59 PM CDT Hospital Encounter [facility] Ultrasound [address] [place] [address] Lavonne Ward, QING Discharge Disposition: Discharged to [...] drink = 0.6 oz pur e alcohol) [facility] Utilities Answer Date Recorded In the past 12 months has [employer], gas, oil, or water company threatened to [...] declined 06/05/2024 How often do you attend zoroastrian or islam serv ices? Patient declined 06/05/2024 Do you belong to any clubs o r organizations such as zoroastrian groups, unions, fraternal or athletic groups, or [...] Total Score - Questions 1-9 0 05/20 [facility] - Occupational Stress Questionnaire Answer Date Recorded [...] any time in the past 12 m [facility], were you homeless or living in a nursing home (including now)? No 10/10/2024 Education Answer Date Recorded What is the highest level of school you have completed or the highest degree you have received? 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, HOTEL OR MOTEL MANAGER, SILVIA) 12/22/2022 Sexually Active Control Partners [...] Description 11/24/2024 2:30 PM CDT Office Visit [facility] - Cardiology - [place] [address] [place] [address] Ayde Cleaning, RATTLING MACHINE TENDER, REHABILITATION COUNSELOR [address] [place] [address] 12/11/2024 3:00 PM CDT [facility] [address] [place] [address] Louis Menjivar MD [address] [place] [address] Lavonne Ward PAC [address] [place] [address] Discharge Disposition: Discharged to home or Selfcare 12/14/2024 3:00 PM CDT Clinical Support [facility] Oncology Services [address] [place] [address] Lavonne Ward PAC [address] [place] [address] Discharge Disposition: Discharged to home or Selfcare 01/08/2025 3:20 PM CDT [facility] [address] [place] [address] Lavonne Ward PAC [address] [place] [address] Discharge Disposition: Discharged to home or Selfcare 01/11/2025 3:00 PM CDT Clinical Support [facility] Oncology Services [address] [place] [address] Ward, Lavonne June, PAC [address] [place] [address] Discharge Disposition: Discharged to home or Selfcare 02/06/2025 2:45 PM CDT Office Visit [facility] - Family [facility] [address] [place] [address] Saleem Lebron MD [address] [address] 02/12/2025 3:00 PM CDT [facility] [address] [place] [address] WardTenaseptember, PAC [address] [place] [address] Discharge Disposition: Discharged to home or Selfcare 02/15/2025 2:40 PM CDT [facility] [address] [place] [address] Tena Wardseptember, PAC [address] [place] [address] Discharge Disposition: Discharged to home or Selfcare 02/15/2025 3:00 PM CDT Clinical Support [facility] Oncology Services 0 [place] [address] Tena Wardseptember, PAC [address] [place] [address] Discharge Disposition: Discharged to home or Selfcare [...] Elevated ferritin HEREDITARY HEMOCHROMATOSIS, HFE VARIANT ANALYSIS- [facility] Routine 08/31/2024 2:59 PM CDT Elevated ferritin US ABDOMEN COMPLETE Routine 08/31/2024 7 :40 AM CDT Elevated ferritin HEPATITIS PANEL ACUTE (AHP) Routine 07/13/2024 11:36 AM CDT Contact with and (suspected) exposure to infections with a predominantly sexual mode of transmission HENRY SCREENING BILATERAL DIGITAL W CAD W JAMIE Routine 05/01/2024 3:34 PM ENERGY AND CONSERVATION TECHNICIAN Encounter for screening mammogram for breast cancer PATHOLOGY CYTOLOGY EDGE DRUMMER Routine 05/21/2016 from Last 3 Months or Most Recently Relevant to Health Maintenance Results * BASIC METABOLIC PANEL W/ CALCIUM TOTAL (11/02/2024 12:00 AM CDT) Only the most recent of4 resultswithin the time period is included. Blood Saleem Lebron MD CHEMISTRY ORDERABLES Melissa l Result SCAN * IRON,TRANSFERN,CALC.TIBC,%SAT (10/31/2024 11:12 AM CDT) IRON 85 25 - 156 mcg/dL 10/31/2024 12:37 PM CDT [facility] TRANSFERRIN 235 180 - 382 mg/dL 10/31/2024 12:37 PM CDT [facility] TIBC, CALCULATED 294 265 - 497 mcg/dL 10/31/2024 12:37 PM CDT [facility] % SATURATION * 29 15 - 62 % 10/31/2024 12:37 PM CDT [facility] Blood Venipuncture / Unknown 10/31/2024 11:12 AM CDT 10/31/2024 12:07 PM CDT us Lavonne LONGO CHEMISTRY ORDERABLES Melissa l Result [facility] [address] [place] [address] * (ABNORMAL) CBC WITH AUTO DIFFERENTIAL (10/31/2024 11:12 AM CDT) Only the most recent of3 resultswithin the time period is included. WBC 8.71 4.00 - 12.00 10(3)/mcL 10/31/2024 2:13 PM CDT [facility] RBC 4.31 3.80 - 5.30 10(6)/mcL 10/31/2024 2:13 PM CDT [facility] HEMOGLOBIN (HGB) 13.5 12.0 - 15.8 g/dL 10/31/2024 2:13 PM CDT [facility] HEMATOCRIT (HCT) 39.7 36.0 - 47.0 % 10/31/2024 2:13 PM CDT [facility] MCV 92.1 82.0 - 96.0 fL 10/31/2024 2:13 PM CDT [facility] MCH 31.3 26.0 - 34.0 pg 10/31/2024 2:13 PM CDT [facility] MCHC 34.0 31.0 - 36.0 g/dL 10/31/2024 2:13 PM CDT [facility] PLATELET COUNT 351 140 - 440 10(3)/mcL 10/31/2024 2:13 PM CDT [facility] RDW 14.1 11.8 - 15.5 % 10/31/2024 2:13 PM CDT [facility] MPV 13.2(H) 9.7 - 12.4 fL 10/31/2024 2:13 PM CDT [facility] NEUTROPHILS 69.2 47.0 - 73.0 % 10/31/2024 2:13 PM CDT [facility] LYMPHOCYTES 19.2 18.0 - 42.0 % 10/31/2024 2:13 PM CDT [facility] MONOCYTES 8.7 4.0 - 12.0 % 10/31/2024 2:13 PM CDT [facility] EOSINOPHILS 1.7 0.0 - 5.0 % 10/31/2024 2:13 PM CDT [facility] BASOPHILS 0.7 0.0 - 1.0 % 10/31/2024 2:13 PM CDT [facility] IMMATURE GRANULOCYTE 0.5(H) 0.0 - 0.4 % 10/31/2024 2:13 PM CDT [facility] Comment:Immature Granulocyte s includes Metamyelocytes, Myelocytes, and Promyelocytes. ABSOLUTE NEUTROPHILS 6.03 1.60 - 7.70 10(3)/Health system 10/31/2024 2:13 PM CDT [facility] ABSOLUTE LYMPHOCYTES 1.67 1.30 - 3.20 10(3)/Health system 10/31/2024 2:13 PM CDT [facility] ABSOLUTE MONOCYTES 0.76 0.20 - 1.00 10(3)/Health system 10/31/2024 2:13 PM CDT [facility] ABSOLUTE EOSINOPHIL 0.15 0.00 - 0.40 10(3)/Health system 10/31/2024 2:13 PM CDT [facility] ABSOLUTE BASOPHILS 0.06 0.00 - 0.10 10(3)/Health system 10/31/2024 2:13 PM CDT [facility] ABSOLUTE IMMATURE GRANULOCYTE 0.04(H) 0.00 - 0.03 10 (3) mcL. 10/31/2024 2:13 PM CDT [facility] NRBC PER 100 WBC 0 11/01/19 25 2:13 PM CDT [facility] RESULTS ARE CONSISTENT WITH PERIPHERAL SMEAR REVIEW Yes 10/31/2024 2:13 PM CDT [facility] RBC MORPHOLOGY CONSISTENT WITH INDICES Yes 10/31/2024 2:13 PM CDT [facility] Blood Venipuncture / Unknown 10/31/2024 11:12 AM CDT 10/31/2024 12:06 PM CDT Lavonne Ward PAC HEMATOLOGY ORDERABLES Fin al Result [facility] [address] [place] [address] * (ABNORMAL) FERRITIN (10/31/2024 11:12 AM CDT) Only the most recent of2 resultswithin the time period is included. FERRITIN 667(H) 5 - 204 ng/mL 10/31/2024 12:51 PM CDT [facility] Blood Venipuncture / Unknown 10/31/2024 11:12 AM CDT 10/31/2024 12:07 PM CDT Lavonne Ward [facility] CHEMISTRY ORDERABLES Melissa l Result [facility] [address] [place] [address] * THYROID STIMULATING HORMONE (TSH) (10/12/2024 3:54 PM CDT) TSH 2.305 0.300 - 5.000 mIU/L 10/12/2024 5:30 PM CDT [facility] Blood Venipuncture / Unknown 10/12/2024 3:54 PM CDT 10/12/2024 4:48 PM CDT Saleem Lebron MD CHEMISTRY ORDERABLES Melissa l Result Performing Organization Address City/[facility]/ZIP Co de Phone Number [facility] [address] [place] [address] * LIPID PANEL (10/12/2024 3:54 PM CDT) CHOLESTEROL 134 <200 mg/dL 10/12/2024 6:11 PM CDT [facility] TRIGLYCERIDES 66 <150 mg/dL 10/12/2024 6:11 PM CDT [facility] HDL CHOLESTEROL 49 >40 mg/dL 6:11 PM CDT [facility] LDL 72 <130 mg/dL 10/12/2024 6:11 PM CDT [facility] VLDL 13 10 - 50 mg/dL 10/12/2024 6:11 PM CDT [facility] CHOL/HDL RATIO 2.7 0.0 - 4.4 10/12/2024 6:11 PM CDT [facility] NON-HDL CHOLESTEROL 85 <130 mg/dL 10/12/2024 6:11 PM CDT [facility] IS THE PATIENT REQUIRED TO BE FASTING? Yes 10/12/2024 6:11 PM CDT [facility] HAS THE PATIENT BEEN FASTING? Yes 10/12/2024 6:11 PM CDT [facility] Blood Venipuncture / Unknown 10/12/2024 3:54 PM CDT 10/12/2024 4:48 PM CDT Saleem Lebron MD CHEMISTRY ORDERABLES Melissa franco Result [facility] [address] [place] [address] * HEREDITARY HEMOCHROMATOSIS, HFE VARIANT ANALYSIS- [facility] (08/31/2024 2:59 PM CDT) [facility] HFET RESULT SUMMARY, [place] [facility] NEGATIVE 09/06/2024 5:03 PM CDT [facility] HFET RESULT, [facility] SEE NOTE 09/06/2024 5:03 PM CDT [facility] Comment: C282Y: Not detected. H63D: Not detected. [facility] INTERPRETATION, [facility] 09/06/2024 5:03 PM CDT [facility] Comment: This result reduces the risk [...] ADDITIONAL INFORMATION An online research opportunity called Needle ([email or web address]), a project of [employer], is available for the recipient of this genetic test. This patient registry collects de-identified genetic and health information to advance the knowledge of genetic variants. [facility] is a collaborator of [employer]. This may not be applicable for all [...] donors will interfere with testing. Call [facility] for instructions for testing patients who have [...] developed and its performance characteristics determined by [facility] in a manner consistent with CLIA requirements. This test has not been cleared or approved by the U.S. Food and Drug Administration. HFET SPECIMEN, [facility] WB Whole Blood 09/06/2024 5:03 PM T [facility] HFET METHOD, [facility] SEE NOTE 09/06/2024 5:03 PM T [facility] Comment: Droplet Digital Polymerase Chain Reaction (ddPCR) was used to test for the following three variants in the HFE gene; C282Y, H63D, and S65C. Because of the minimal effect on iron metabolism associated with the S65C variant, it is only reported when it is found with the C282Y variant (i.e. if the patient has the C282Y/S65C genotype). HFET RELEASED BY, [facility] Keri Arceo M.D. 09/06/2024 5:03 PM T [facility] Comment: Test Performed by: [facility] - [address] [address] Icd 9 Coder: Edgar Fernandes Ph.D.; CLIA# [id number] Blood Venipuncture / Unknown 08/31/2024 2:59 PM CDT 08/31/2024 2:59 PM CDT us Lavonne Ward PAC LAB SEND OUT GENETIC Melissa l Result [facility] US * US ABDOMEN COMPLETE (08/31/2024 [...] thickening or pericholecystic fluid. No positive sonographic Alta sign reported. BILIARY: There is no intrahepatic [...] Terry Almanza M.D. KT: B[place] Report ID: [id number] Reading Location: [id number] Procedure Note Terry Almanza MD - 09/02/2024 [...] thickening or pericholecystic fluid. No positive sonographic Alta sign reported. BILIARY: There is no intrahepatic [...] 6:14 PM - Electronically signed by Terry Almanaz M.D. KT: BIBIANA Report ID: [id number] Reading Location: [id number] IMPRESSION: No acute abnormality. 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 us Lavonne Ward PAC IMG US ORDERABLES Final R esult * HEPATITIS PANEL ACUTE (AHP) (07/13/2024 11:36 AM CDT) HEPATITIS A IGM ANTIBODY NON DETECTED NON DETECTED 07/13/2024 9:19 PM CDT [facility] Comment: IGM Antibodies to HAV not detected. Does not exclude early acute or recovered HAV infection. HEP B CORE AB (IGM) NON DETECTED NON DETECTED 07/13/2024 9:19 PM CDT [facility] Comment:IGM anti-HBC not det ected. Does not exclude the possibility of exposure to or infection with HBV. HEPATITIS B SURFACE ANTIGEN NON DETECTED NON DETECTED 07/13/2024 9:19 PM CDT [facility] Comment:A nonreactive test r esult does not [...] 0.18 <1 S/CO 07/13/2024 9:19 PM CDT [facility] Comment: Signal/Cutoff ratio < 0.79 is Nondetected Signal/Cutoff ratio 0.80-0.99 is Grayzone Signal/Cutoff ratio > 0.99 is Detected Supplemental assays are recommended if signal/cutoff ratio is >/=1.00. Signal/cutoff ratio result >/= 5.00 is 97% predictive of positivity for recombinant immunoblot assay (RIBA) and will be reported to the [place] Department of Public [facility] as required. Blood Venipuncture / Unknown 07/13/2024 11:36 AM CDT 07/13/2024 12:05 PM CDT us Aubree Chen MD HEMATOLOGY ORDERABLES Final Res ult [facility] [address] [facility] [facility] [place] [address], [place] * HENRY SCREENING BILATERAL DIGITAL W CAD W JAMIE (05/01/2024 3:34 PM ENERGY AND CONSERVATION TECHNICIAN) Anatomical Region Laterality Modality breast Bilateral Mammography 05/01/2024 3:07 PM ENERGY AND CONSERVATION TECHNICIAN Narrative 05/03/2024 2:04 PM ENERGY AND CONSERVATION TECHNICIAN - HENRY SCREENING BILATERAL DIGITAL W CAD [...] to exams dated: 12/25/2022, 12/11/2021, and [facility] BREAST TISSUE:There are scattered areas of fibroglandular [...] exam. Electronically signed by: Willem granados/june:05/02/2024 16:53:12 Director Of Athletics(s): RT Eloy(R)(M), [facility] letter sent: Normal Exam Reading location: [...] to exams dated: 12/25/2022, 12/11/2021, and 11/27/2020 [facility]. BREAST TISSUE:There are scattered areas of [...] exam. Electronically signed by: Willem granados/june:05/02/2024 16:53:12 Director Of Athletics(s): RT Eloy(R)(M), [facility] letter sent: Normal Exam Reading location: [place] Mammogram BI-RADS: Category 1: Negative us Saleem Lebron MD IMG MAMMO ORDERABLES Melissa l Result * PATHOLOGY CYTOLOGY EDGE DRUMMER (05/21/2016) Specimen of unknown material (specimen) us Mary Thompson APRN PATHOLOGY/CYTOLOGY ORDERABLE S Final Result from Last 3 Months or Most Recently Relevant to Health Maintenance Insurance [facility] Care Teams Volunteer Services Supervisor Relationship Specialty Start Date End Date Saleem Lebron MD [address] [place] [id number] PCP - General Family Medicine 06/09/23
--- OUTSIDE RECORDS SUMMARY | 2024-11-16 15:39 | XMS_ITS | Encounter Summary ---
Author Organization [facility] Address [address] [place] [address] Phone Care Team Providers Care Banking Services Clerk Name Role Phone Saleem Lebron MD Primary Care Provider [phone] Reason for Visit * Reason Onset Date Comments Medication Refill 11/15/2024 Encounter Details Date Type Department Care Team (Late st Contact Info) Description 11/15/2024 Refill [facility] - Cardiology - [place] [address] [place] [address] Ayde Cleaning APRN, AUXILIARY ENGINEER [address] [place] [address] Medication Refill Social History Tobacco Use Types Packs/Day Years Used Date Smoking Tobacco: Never Smokeless Tobacco: Never Alcohol Use Standard Drinks/Week Comments No 0 (1 standard drink = 0.6 oz pur e alcohol) [facility] Utilities Answer Date Recorded In the [...] declined 06/05/2024 How often do you attend gnosticism or restoration serv ices? Patient declined 06/05/2024 Do you belong to any clubs o r organizations such as gnosticism groups, unions, fraternal or athletic groups, or [...] Total Score - Questions 1-9 0 05/20 [facility] - Occupational [...] place to sleep or slept in a skilled nursing (including now)? No 07/18/2023 Overall Financial Resource [...] any time in the past 12 m [facility], were you homeless or living in a skilled nursing (including now)? No 10/10/2024 Education Answer Date Recorded What is the highest level of school you have completed or the highest degree you have received? 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, CLINICAL SERVICES MANAGER, SILVIA) 12/22/2022 Sexually Active Control Partners [...] Office Visit [facility] #[address] [place] [address] Ayde Cleaning APRN, AUXILIARY ENGINEER [address] [place] [address] 12/11/2024 3:00 PM CDT Lab [facility] Oncology Services [address] [place] [id number] Louis Menjivar MD [address] [place] [address] Lavonne Ward Nancy, PAC [address] [place] [address] Discharge Disposition: Discharged to home or Selfcare 12/14/2024 3:00 PM CDT Clinical Support [facility] Oncology Services [address] [place] [address] Lavonne Ward September, PAC [address] [place] [address] Discharge Disposition: Discharged to home or Selfcare 01/08/2025 3:20 PM CDT Lab [facility] Oncology Services [address] [place] [address] Lavonne Ward Nancy, PAC [address] [place] [address] Discharge Disposition: Discharged to home or Selfcare 01/11/2025 3:00 PM CDT Clinical Support [facility] Oncology Services [address] [place] [address] Lavonne Ward Nancy, PAC [address] [place] [address] Discharge Disposition: Discharged to home or Selfcare 02/06/2025 2:45 PM CDT Office Visit [facility] Medical [facility] - Family [facility] [address] [place] [address] Saleem Lebron MD [address] [place] [address] 02/12/2025 3:00 PM CDT Lab [facility] [address] [place] [address] Lavonne Ward September, PAC [address] [facility] [place] [address] Discharge Disposition: Discharged to home or Selfcare 02/15/2025 2:40 PM CDT Office Visit [facility] Oncology Services [address] [place] [address] Lavonne Ward September, PAC [address] [place] [address] Discharge Disposition: Discharged to home or Selfcare 02/15/2025 3:00 PM CDT Clinical Support [facility] Oncology Services [address] [place] [address] Lavonne Ward September, PAC [address] [place] [address] Discharge Disposition: Discharged to home or Selfcare documented as of this encounter Visit Diagnoses Diagnosis Primary hypertension Unspecified essential hypertension documented in this encounter Additional Health Concerns Assessment Noted Time PHQ-9 Depression Total Score: 0 06/06/19 25 3:09 PM CHOCOLATE PRODUCTION MACHINE OPERATOR documented as of this encounter Care Teams Banking Services Clerk Relationship Specialty Start Date End Date Saleem Lebron MD [address] [place] [address] PCP - General Family Medicine 06/09/23 documented as of this encounter
--- OUTSIDE RECORDS SUMMARY | 2024-11-16 15:39 | XMS_ITS | Encounter Summary ---
Author Organization [facility] Address [address] [place] [address] Phone Care Team Providers Care International Logistics Coordinator Name Role Phone Saleem Lebron MD Primary Care Provider [phone] Louise Palma APRN, STAVE HEWER Unavailable +1- [phone] Encounter Details Date Type Department Care Team (Late st Contact Info) Description 10/16/2024 Results Follow-Up [facility] Medical Group - Family Medicine [facility] #2 [place] [address] Saleem Lebron MD #[address] [address] CBC WITH AUTO DIFFERENTIAL Social History Tobacco Use Types Packs/Day Years Used Date Smoking Tobacco: Never Smokeless Tobacco: Never Alcohol Use Standard Drinks/Week Comments No 0 (1 standard drink = 0.6 oz pur e alcohol) [facility] Utilities Answer Date Recorded In the past 12 months has Hook[employer] electric, gas, oil, or water company threatened [...] How often do you attend gnosticist or quaker serv ices? Patient declined 06/05/2024 Do you [...] Total Score - Questions 1-9 0 05/20 [facility] - Occupational [...] place to sleep or slept in a prison (including now)? No 07/18/2023 Overall Financial Resource [...] were you homeless or living in a prison (including now)? No 10/10/2024 Education Answer Date Recorded What is the highest level of school you have completed or the highest degree you have received? 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, CONTRACT AGENT, SILVIA) 12/22/2022 Sexually Active Control Partners Comments [...] Visit [facility] - Cardiology - Hay #2 [place] [address] Ayde Cleaning, WATERPROOFING SUPERVISOR, STAVE HEWER #[address] [place] [address] 12/11/2024 3:00 PM CDT Lab [facility] Oncology Services [address] [place] [address] Louis Menjivar MD [address] [place] [address] Ward Lavonne June, PAC [address] [place] [address] Discharge Disposition: Discharged to home or Selfcare 12/14/2024 3:00 PM CDT Clinical Support [facility] Oncology Services [address] [place] [address] WardLavonne September, PAC [address] [place] [address] Discharge Disposition: Discharged to home or Selfcare 01/08/2025 3:20 PM CDT Lab [facility] Oncology Services [address] [place] [address] Ward Lavonne September, PAC [address] [place] [address] Discharge Disposition: Discharged to home or Selfcare 01/11/2025 3:00 PM CDT Clinical Support [facility] Oncology Services [address] [place] [address] [place], PAC [address] [place] [address] Discharge Disposition: Discharged to home or Selfcare 02/06/2025 2:45 PM CDT Office Visit [facility] Medical Group - Family [facility] #2 [place] [address] Saleem Lebron MD #2 [facility] [address] [place] [address] 02/12/2025 3:00 PM CDT [facility] [address] [place] [address] Ward Lavonne June, PAC 0 [place] [address] Discharge Disposition: Discharged to home or Selfcare 02/15/2025 2:40 PM CDT Office Visit [facility] Oncology Services [address] [place] [address] [facility] Lavonne June, PAC [address] [place] [address] Discharge Disposition: Discharged to home or Selfcare 02/15/2025 3:00 PM CDT Clinical Support [facility] Oncology Services [address] [place] [address] [place] Lavonne September, PAC 0 [place] [address] Discharge Disposition: Discharged to home or Selfcare documented as of this encounter Visit Diagnoses Not on filedocumented in this encounter Additional Health Concerns Assessment Noted Time PHQ-9 Depression Total Score: 0 06/06/19 25 3:09 PM CAR 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
--- OUTSIDE RECORDS SUMMARY | 2024-11-16 15:39 | XMS_ITS | Clinical Summary ---
Author Organization [facility] Address [address] [facility] [id number] [place] [address] Phone Care Team Providers Care Commercial Lines Account Assistant Name Role Phone Unavailable Primary Care Provider Unavailabl e Social History Tobacco Use Types Packs/Day Years Used Date Smoking Tobacco: Never Assessed Comments Unknown Sex and Gender Information Value Date Recorded Sex Assigned at Not on file Legal Sex Female 4:04 PM CAPTURE MANAGER Gender Identity Not on file Sexual Orientation [...] T d or Tdap) 05/21/2026 05/21/2016 [employer] [place] [place] [id number]
--- OUTSIDE RECORDS SUMMARY | 2024-11-16 15:39 | XMS_ITS | Encounter Summary ---
Author Organization [facility] Address [address] [place] [address] Phone Care Team Providers Care Assistant General Manager Name Role Phone Saleem Lebron MD Primary Care Provider [phone] Louise Palma APRN, TRAIN STATION SERVER Unavailable +1- [phone] Encounter Details Date Type Department Care Team (Late st Contact Info) Description 11/02/2024 Results Follow-Up [facility] Medical Group - Family Medicine [facility] #[address] [place] [address] Saleem Lebron MD #[address] [address] BASIC METABOLIC PANEL W/ CALCIUM TOTAL Social History Tobacco Use Types Packs/Day Years Used Date Smoking Tobacco: Never Smokeless Tobacco: Never Alcohol Use Standard Drinks/Week Comments No 0 (1 standard drink = 0.6 oz pur e alcohol) [facility] Utilities Answer Date Recorded In the past 12 months has [employer] electric, gas, oil, or water company threatened [...] declined 06/05/2024 How often do you attend taoist or rastafari serv ices? Patient declined 06/05/2024 Do you belong to any clubs o r organizations such as taoist groups, unions, fraternal or athletic groups, or [...] Total Score - Questions 1-9 0 05/20 [facility] - [...] place to sleep or slept in a fpc (including now)? No 07/18/2023 Overall Financial Resource [...] were you homeless or living in a fpc (including now)? No 10/10/2024 Education Answer Date Recorded What is the highest level of school you have completed or the highest degree you have received? 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, GAS CUTTING MACHINE OPERATOR, SILVIA) 12/22/2022 Sexually Active Control [...] [facility] [place] [address] Ayde Cleaning, MATERIAL DAMAGE APPRAISER, TRAIN STATION SERVER [address] [place] [address] 12/11/2024 3:00 PM CDT Lab [facility] Oncology Services [address] [place] [address] Louis Menjivar MD [address] [place] [address] WardLavonne September, PAC [address] [place] [address] Discharge Disposition: Discharged to home or Selfcare 12/14/2024 3:00 PM CDT Clinical Support [facility] Oncology Services [address] [place] [address] WardLavonne taylor September, PAC [address] [place] [address] Discharge Disposition: Discharged to home or Selfcare 01/08/2025 3:20 PM CDT Lab [facility] Oncology Services [address] [place] [address] WardLavonne taylor September, PAC [address] [place] [address] Discharge Disposition: Discharged to home or Selfcare 01/11/2025 3:00 PM CDT Clinical Support [facility] Oncology Services [address] [place] [address] WardLavonne September, PAC [address] [place] [address] Discharge Disposition: Discharged to home or Selfcare 02/06/2025 2:45 PM CDT Office Visit [facility] Medical Group - Family [facility] #[address] [place] [address] Saleem Lebron MD #2 [facility] [address] [place] [address] 02/12/2025 3:00 PM CDT [facility] [address] [place] [address] WardLavonne September, PAC [address] [place] [address] Discharge Disposition: Discharged to home or Selfcare 02/15/2025 2:40 PM CDT Office Visit [facility] Oncology Services [address] [place] [address] WardScottLavonne September, PAC [address] [place] [address] Discharge Disposition: Discharged to home or Selfcare 02/15/2025 3:00 PM CDT Clinical Support [facility] Oncology Services [address] [place] [address] Awrd Lavonne September, PAC [address] [facility] [address] Discharge Disposition: Discharged to home or Selfcare documented as of this encounter Visit Diagnoses Not on filedocumented in this encounter Additional Health Concerns Assessment Noted Time PHQ-9 Depression Total Score: 0 06/06/19 25 3:09 PM TELEVISION ANCHOR documented as of this encounter Care Teams Assistant General Manager Relationship Specialty Start Date End Date Saleem Lebron MD #2 [facility] [address] [place] [address] PCP - General Family Medicine 06/09/23 Louise Palma, MATERIAL DAMAGE APPRAISER, TRAIN STATION SERVER #2 [facility] [address] [place] [address] Nurse Practitioner Cardiology 06/17/23 11/06/24 documented as of this encounter
--- OUTSIDE RECORDS SUMMARY | 2024-11-16 15:39 | XMS_ITS | Clinical Summary ---
Author Organization [facility] Address [address] [place] [address] Care Team Providers Care Desk Lieutenant Name Role Phone Yosi Lebron MD Primary Care Provider [phone] Allergies No known active allergies Active Problems Problem Noted Date Diagnosed Date Possible , not yet confirmed 08/01/2014 Female infertility 07/11/2014 Encounters Date Type Department Care Team Description 10/08/2024 9:39 PM CDT - 10/09/2024 1:06 AM CDT Emergency [facility] Emergency Department [address] [place] [address] Bassam Gabriel MD Chest pain, unspecified type [...] on file Legal Sex Female 7:33 PM DUMP ATTENDANT Gender Identity Not on file Sexual Orientation [...] HEPATITIS C AB Routine 05/29/2014 5:00 AM DUMP ATTENDANT from Last 3 Months or Most Recently Relevant to Health Maintenance Results * Magnesium (10/08/2024 10:53 PM CDT) Magnesium 1.9 1.4 - 2.5 mg/dL Blood 10/08/2024 10:5 3 PM CDT 10/09/2024 12:21 AM CDT us Bassam Gabriel MD LAB BLOOD ORDERABLE S Final Result [facility] ([place]) 1 [facility] Department of Laboratories [place], [place] [id number] * XR Chest 1 View (10/08/2024 10:37 [...] Terry Granado M.D. KH: [place] Report ID: [id number] Reading Location: [id number] Procedure Note Terry Granado MD - 10/08/2024 [...] Terry Granado M.D. KH: [place] Report ID: [id number] Reading Location: [place] [address] us Bassam Gabriel MD IMG XR PROCEDURES [...] BLOOD ORDERABLE S Final Result [facility] ([place]) 1 [facility] Department [place] [address] * eGFR (10/08/2024 9:43 PM CDT) [facility] eGFR >90 >=60 mL/min/1. 73 m2 Comment: [...] MD LAB BLOOD ORDERABLE S Final Result [facility] ([place]) 1 [facility] Department [place] [address] * (ABNORMAL) Differential, auto (10/08/2024 9:43 PM CDT) Pathologist [facility] Neutrophil abs 8.14(H) 1.50 - 6.50 K/cumm [...] S Final Result [facility] ([place]) 1 [facility] Department [place] [address] * (ABNORMAL) CBC with auto differential (10/08/2024 [...] MD LAB BLOOD ORDERABLE S Final Result [facility] ([place]) 1 [facility] Department [place] [address] * (ABNORMAL) Comprehensive metabolic panel [...] S Final Result [facility] ([place]) 1 [facility] Department [place] [address] * ECG 12 lead (10/08/2024 9:38 PM CDT) 10/08/2024 9:38 PM CDT Narrative [facility] - 10/09/2024 7:29 AM CDT Vent Rate: 67 bpm RR Interval: 885 msec MA Interval: 171 msec QRS Duration: 102 msec QT Interval: 385 msec QTC Interval: 401 msec P-R-T Dulzura: 12 - 15 - 6 degrees IMPRESSION: Baseline artifact SINUS RHYTHM NORMAL ECG Electronically Signed By: Josse Jeff MD us Bassam Gabriel MD ECG ORDERABLES Fin al Result [facility] * Serum Hepatitis C ab (05/29/2014 5:00 AM DUMP ATTENDANT) HCV ab Negative NEG HISTORICAL RESULTS Serum 05/29/2014 5:00 AM DUMP ATTENDANT Narrative HISTORICAL RESULTS - 05/30/2014 4:23 AM DUMP ATTENDANT {Testing performed by: [place] [address]} Interpretive Data If confirmation is required, call Laboratory Customer Service to request sample to be sent to [facility] for Hepatitis C Virus (HCV) RNA Detection and Quantitation by Real-Time Reverse Corporate [employer] & Online-PCR (RT-PCR). Current interpretive data was last revised on 2011 us Dacia Doyle MD LAB BLOOD ORDERABLES Final R esult HISTORICAL RESULTS from Last 3 Months or Most Recently Relevant to Health Maintenance Insurance [facility] CHOICE PLUS Care Teams Desk Lieutenant Relationship Specialty Start Date End Date Yosi Lebron MD [address] [place] [address] PCP - General Pulmonary Disease 10/08/24
--- OUTSIDE RECORDS SUMMARY | 2024-11-16 15:39 | XMS_ITS | Encounter Summary ---
Author Organization [facility] Address [address] [place] [address] Phone Care Team Providers Care Pediatric Nephrologist Name Role Phone Saleem Lebron MD Primary Care Provider [phone] Louise Palma DIRECTOR MOBILE MEDIA SOLUTIONS, RECOVERY SPECIALIST Unavailable [phone]- [phone] Encounter Details Date Type Department Care Team (Latest Contact Info) Description 10/31/2024 Results Follow-Up [facility] Oncology Services [address] [place] [address] Lavonne Ward Nancy, PAC [address] [place], [place] [phone] FERRITIN, IRON,TRANSFERN,CALC.T IBC,%SAT, CBC WITH AUTO DIFFERENTIAL Social History Tobacco Use Types Packs/Day Years Used Date Smoking Tobacco: Never Smokeless Tobacco: Never Alcohol Use Standard Drinks/Week Comments No 0 (1 standard drink = 0.6 oz pur e alcohol) [facility] Utilities Answer Date Recorded In [...] declined 06/05/2024 How often do you attend oriental orthodox or yazdanism serv ices? Patient declined 06/05/2024 Do you belong to any clubs o r organizations such as oriental orthodox groups, unions, fraternal or athletic groups, or [...] Total Score - Questions 1-9 0 05/20 [facility] - [facility]ational Stress Questionnaire Answer Date Recorded [...] place to sleep or slept in a retirement (including now)? No 07/18/2023 Overall Financial Resource [...] were you homeless or living in a retirement (including now)? No 10/10/2024 Education Answer Date Recorded What is the highest level of school you have completed or the highest degree you have received? 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, MANAGER QUALITY, SILVIA) 12/22/2022 Sexually Active Control Partners Comments [...] Medical Group - Cardiology - [place] [address] [place] [address] Ayde Cleaning, DIRECTOR MOBILE MEDIA SOLUTIONS, RECOVERY SPECIALIST #2 [place] [address] 12/11/2024 3:00 PM CDT Lab [facility] Oncology Services [address] [place] [address] Louis Menjivar MD [address] [place] [address] WardLavonne taylor September, PAC [address] [place] [address] Discharge Disposition: Discharged to home or Selfcare 12/14/2024 3:00 PM CDT Clinical Support [facility] Oncology Services [address] [place] [address] Lavonne Ward September, PAC [address] [place] [address] Discharge Disposition: Discharged to home or Selfcare 01/08/2025 3:20 PM CDT Lab [facility] Oncology Services [address] [place] [address] Lavonne Ward September, PAC [address] [place] [address] Discharge Disposition: Discharged to home or Selfcare 01/11/2025 3:00 PM CDT Clinical Support [facility] Oncology Services [address] [place] [address] Lavonne Ward September, PAC [address] [place] [address] Discharge Disposition: Discharged to home or Selfcare 02/06/2025 2:45 PM CDT Office Visit [facility] Medical Group - Family [facility] #2 [place] [address] Saleem Lebron MD #2 [facility] [address] [place] [address] 02/12/2025 3:00 PM CDT [facility] [address] [place] [address] WardTenae September, PAC [address] [place] [address] Discharge Disposition: Discharged to home or Selfcare 02/15/2025 2:40 PM CDT Office Visit [facility] Oncology Services [address] [place] [address] [facility] September, PAC [address] [place] [address] Discharge Disposition: Discharged to home or Selfcare 02/15/2025 3:00 PM CDT Clinical Support [facility] Oncology Services [address] [place] [address] [place] Lavonne September, PAC [address] [place] [address] Discharge Disposition: Discharged to home or Selfcare documented as of this encounter Visit Diagnoses Not on filedocumented in this encounter Additional Health Concerns Assessment Noted Time PHQ-9 Depression Total Score: 0 06/06/19 25 3:09 PM HUMAN RESOURCE OFFICER documented as of this encounter Care Teams Pediatric Nephrologist Relationship Specialty Start Date End Date Saleem Lebron MD #2 [facility] [address] [place] [address] PCP - General Family Medicine 06/09/23 Louise Palma, DIRECTOR MOBILE MEDIA SOLUTIONS, RECOVERY SPECIALIST #2 [facility] [address] [place] [address] Nurse Practitioner Cardiology 06/17/23 11/06/24 documented as of this encounter
--- OUTSIDE RECORDS SUMMARY | 2024-11-16 15:39 | XMS_ITS | Encounter Summary ---
Author Organization [facility] Address [address] [place] [address] Phone Care Team Providers Care Lead Rider Name Role Phone Shu Branch MD Primary Care Provider Saleem Lebron MD Primary Care Provider [phone] Louise Palma APRN, [facility] Unavailable [phone]- [phone] Reason for Visit * Reason Comments Medication Refill Encounter Details Date Type Department Care Team (Late st Contact Info) Description 05/26/2023 Refill [facility] - [facility] [place] #2 [place] [address] Saleem Lebron MD #[address] [address] Medication Refill Social History Tobacco Use Types [...] 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, TUNNEL KILN REPAIRER, SILVIA) 12/22/2022 Sexually Active Control Partners Comments Yes Comments No Sex and Gender Information Value Date Recorded Sex Assigned at Not on file Legal Sex Female 9:02 PM CDT Gender Identity Not on file Sexual Orientation Not on file documented as of this encounter Miscellaneous Notes * Telephone Encounter - Johana Garcia RN - 05/27/2023 9:01 AM CST Ordered 2 days ago RIAL ATTENDANT documented in this encounter Plan of Treatment Upcoming Encounters Date Type Department Care Team (Late st Contact Info) Description 11/24/2024 2:30 PM CDT Office Visit [facility] Medical Group - Cardiology [facility] #2 [place] [address] Ayde Cleaning APRN, PROTOZOOLOGY TEACHER #2 [place] [address] 12/11/2024 3:00 PM CDT [facility] [address] [place] [address] Louis Menjivar MD [address] [place] [address] Lavonne Ward, PAC [address] [place] [address] Discharge Disposition: Discharged to home or Selfcare 12/14/2024 3:00 PM CDT Clinical Support [facility] Oncology Services [address] [place] [address] Lavonne Ward, PAC [address] [place] [address] Discharge Disposition: Discharged to home or Selfcare 01/08/2025 3:20 PM CDT [facility] [address] [place] [address] Ward Lavonne June, PAC [address] [place] [address] Discharge Disposition: Discharged to home or Selfcare 01/11/2025 3:00 PM CDT Clinical Support [facility] Oncology Services [address] [place] [address] WardTena taylorseptember, PAC [address] [place] [address] Discharge Disposition: Discharged to home or Selfcare 02/06/2025 2:45 PM CDT Office Visit [facility] Medical Group - Family [facility] #2 [place] [address] Saleem Lebron MD #[address] [address] 02/12/2025 3:00 PM CDT [facility] [address] [place] [address] Tena Wardseptember, PAC [address] [place] [address] Discharge Disposition: Discharged to home or Selfcare 02/15/2025 2:40 PM CDT Office Visit [facility] Oncology Services [address] [place] [address] Ward Lavonne June, PAC [address] [place] [address] Discharge Disposition: Discharged to home or Selfcare 02/15/2025 3:00 PM CDT Clinical Support [facility] Oncology Services [address] [place] [address] Lavonne Ward Nancy, PAC [address] [place] [address] Discharge Disposition: Discharged to home or Selfcare documented as of this encounter Visit Diagnoses Diagnosis Primary hypertension Unspecified essential hypertension documented in this encounter Additional Health Concerns Infection Onset Date Last Indicated Resolved Time Respiratory Rule-Out 07/19/2023 07/19/2023 024 11:52 AM CDT Assessment Noted Time PHQ-9 Depression Total Score: 0 10/23/19 12:39 PM CDT documented as of this encounter Care Teams Lead Rider Relationship Specialty Start Date End Date Shu Branch MD PCP - General Family Medicine 05/20/16 06/08/23 Saleem Lebron MD #2 [facility] [address] [place] [address] PCP - General Family Medicine 06/09/23 Louise Palma APRN, PROTOZOOLOGY TEACHER #2 [facility], [address] [place] [address] Nurse Practitioner Cardiology 06/17/23 11/06/24 documented as of this encounter
--- OUTSIDE RECORDS SUMMARY | 2024-11-16 15:39 | XMS_ITS | Encounter Summary ---
Author Organization [facility] Address [address] [place] [place] [address] Phone Care Team Providers Care Clamp Remover Name Role Phone Saleem Lebron MD Primary Care Provider [phone] Louise Palma APRN, HEATING ELEMENT BUILDER Unavailable [phone] Reason for Visit * Reason Comments Medication Refill Encounter Details Date Type Department Care Team (Late st Contact Info) Description 08/31/2023 Refill [facility] - Cardiology - [place] [address] [place] [id number] Saleem Lebron MD [address] [address] Medication Refill Social History Tobacco Use Types Packs/Day Years Used Date Smoking Tobacco: Never Smokeless Tobacco: Never Alcohol Use Standard Drinks/Week Comments No 0 (1 standard drink = 0.6 oz pur e alcohol) [facility] Utilities Answer Date Recorded In the past 12 months has [employer] electric, gas, oil, or water company threatened [...] declined 07/18/2023 How often do you attend hoahaoism or yarsani serv ices? Patient declined 07/18/2023 Do you belong to any clubs o r organizations such as hoahaoism groups, unions, fraternal or athletic groups, or [...] Total Score - Questions 1-9 0 09/18 [facility] - Occupational Stress Questionnaire Answer Date Recorded [...] place to sleep or slept in a longterm (including now)? No 07/18/2023 Education Answer Date Recorded What is the highest level of school you have completed or the highest degree you have received? 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, [employer], SILVIA) 12/22/2022 Sexually Active Control Partners Comments Yes Comments No Sex and Gender Information Value Date Recorded Sex Assigned at Not on file Legal Sex Female 9:02 PM CDT Gender Identity Not on file Sexual Orientation Not on file documented as of this encounter Miscellaneous Notes * Telephone Encounter - Johana Garcia RN - 08/31/2023 1:45 PM CDT Medication(s) refilled and signed per [facility] Chronic Medication Refill Standing Order for Pediatricand [...] Dept 07/19/23 Office Visit Carley Siddiqui, QING [facility] [place] 06/25/23 Office Visit Louise Palma, MACHINE BOBBIN WINDER, HEATING ELEMENT BUILDER [facility] Cardiology [place] 06/08/23 Telemedicine Saleem Lebron MD [facility] [place] 05/25/23 Office Visit Saleem Lebron MD [facility] [place] 12/22/22 Office Visit Sola Jennings APRN, HEATING ELEMENT BUILDER [facility] [place] Showing recent visits within past 548 days [...] Dept 07/19/23 Office Visit Carley Siddiqui PAC [facility] [place] 06/25/23 Office Visit Louise Palma APRN, HEATING ELEMENT BUILDER [facility] Card[facility] [place] 06/08/23 Telemedicine Saleem Lebron MD [facility] [place] 05/25/23 Office Visit Saleem Lebron MD [facility] [place] 12/22/22 Office Visit Sola Jennings APRN, [facility] [place] Showing recent visits within past 548 [...] Description 11/24/2024 2:30 PM CDT Office Visit [facility] - Cardiology [facility] [address] [place] [address] Ayde Cleaning APRN, HEATING ELEMENT BUILDER [address] [place] [address] 12/11/2024 3:00 PM CDT Lab [facility] Oncology Services [address] [place] [address] Louis Menjivar MD [address] [place] [address] Lavonne Ward PAC [address] [place] [address] Discharge Disposition: Discharged to home or Selfcare 12/14/2024 3:00 PM CDT Clinical Support [facility] Oncology Services [address] [place] [address] Ward, Lavonne September, PAC [address] [place] [address] Discharge Disposition: Discharged to home or Selfcare 01/08/2025 3:20 PM CDT Lab [facility] [address] [place] [address] WardTenaseptember, PAC [address] [place] [address] Discharge Disposition: Discharged to home or Selfcare 01/11/2025 3:00 PM CDT Clinical Support [facility] Oncology Services [address] [place] [address] WardTena taylorseptember, PAC [address] [place] [address] Discharge Disposition: Discharged to home or Selfcare 02/06/2025 2:45 PM CDT Office Visit [facility] Medical [facility] - Family Medicine [facility] [address] [facility] [place] [address] Saleem Lebron MD [address] [address] 02/12/2025 3:00 PM CDT [facility] [address] [place] [address] Ward, Lavonne June, PAC [address] [place] [address] Discharge Disposition: Discharged to home or Selfcare 02/15/2025 2:40 PM CDT Office Visit [facility] Oncology Services [address] [place] [address] Lavonne Ward Nancy, PAC [address] [place] [address] Discharge Disposition: Discharged to home or Selfcare 02/15/2025 3:00 PM CDT Clinical Support [facility] Oncology Services [address] [place] [id number] WardLavonne Nancy, PAC [address] [place] [address] Discharge Disposition: Discharged to home or Selfcare documented as of this encounter Visit Diagnoses Not on filedocumented in this encounter Additional Health Concerns Assessment Noted Time PHQ-9 Depression Total Score: 0 10/23/19 20 12:39 PM CDT documented as of this encounter Care Teams Clamp Remover Relationship Specialty Start Date End Date Saleem Lebron MD [address] [facility] [address] [place] [address] PCP - General Family Medicine 06/09/23 Louise Palma APRN, HEATING ELEMENT BUILDER [address] [facility], [address] [place] [address] Nurse Practitioner Cardiology 06/17/23 11/06/24 documented as of this encounter
== END 2024-11-16 15:36 | disposition home or self-care (01) ==
LOC: ANHLAB 15:37
PROVIDERS: PCP Family Medicine; Visit Provider Plastic Surgery
DX: N60.82 Other benign mammary dysplasias of left breast (principal); N62 Hypertrophy of breast; R92.0 Mammographic microcalcification found on diagnostic imaging of breast
CPT/HCPCS: 88305